=== PATIENT | female | born 1955 | race Caucasian/White ===

== ENCOUNTER → 2017-06-24 | Outpatient (CLI) | payer BC ==
[2017-06-24 14:30] LABS: ADD MAN DIFF? NO
[2017-06-24 14:33] LABS: BASO # 0.1 x10^3/uL (0.0-0.2); BASO % 1 % (0-3); EOS # 0.2 x10^3/uL (0.0-0.7); EOS % 3 % (0-3); HEMATOCRIT 40.5 % (36.0-47.0); LYMPH # 3.2 x10^3/uL (1.0-4.8); LYMPH % 41 % (24-48); MEAN CORPUSCULAR HEMOGLOBIN 29 pg (25-35); MEAN CORPUSCULAR HGB CONC 35 g/dL (31-37); MEAN CORPUSCULAR VOLUME 84 fL (79-100); MONO # 0.6 x10^3/uL (0.0-1.1); MONO % 8 % (0-9); NEUT # 3.6 x10^3uL (1.8-7.7); NEUT % 47 % (31-73); PLATELET COUNT 239 x10^3/uL (140-400); RED BLOOD COUNT 4.83 x10^6/uL (3.50-5.40); RED CELL DISTRIBUTION WIDTH 13.8 % (11.5-14.5); WHITE BLOOD COUNT 7.6 x10^3/uL (4.0-11.0)
[2017-06-24 14:46] LABS: PARTIAL THROMBOPLASTIN TIME 32 SEC (24-38); PROTHROMBIN TIME PATIENT 12.7 SEC (11.7-14.0)
[2017-06-24 14:48] LABS: BILIRUBIN,URINE NEGATIVE (NEG); CLARITY,URINE CLEAR; COLOR,URINE YELLOW; GLUCOSE,URINE NEGATIVE (NEG); NITRITE,URINE NEGATIVE (NEG); PH,URINE 6.5; PROTEIN,URINE 30 mg/dL (NEG-TRACE)
[2017-06-24 14:49] LABS: ALBUMIN 3.6 g/dL (3.4-5.0); ANION GAP 12 (6-14); BLOOD UREA NITROGEN 9 mg/dL (7-20); CALCIUM 8.7 mg/dL (8.5-10.1); CARBON DIOXIDE 28 mmol/L (21-32); CHLORIDE 103 mmol/L (98-107); CREATININE 0.8 mg/dL (0.6-1.0); GFR 72.9; GLUCOSE 114 mg/dL (70-99); POTASSIUM 3.2 mmol/L (3.5-5.1); SODIUM 143 mmol/L (136-145)
[2017-06-24 14:54] LABS: BACTERIA,URINE 0 /HPF (0-FEW); RBC,URINE 0 /HPF (0-2); SQUAMOUS EPITHELIAL CELL,UR FEW /LPF; WBC,URINE 0 /HPF (0-4)
[2017-06-24 15:55] LABS: SEDIMENTATION RATE 27 (0-25)
[2017-06-25 03:17] LABS: MRSA BY PCR Negative (Negative)
== END | disposition home or self-care (01) ==
LOC: SURGPAT 13:40
DX: Z01.818 Encounter for other preprocedural examination (principal); M17.12 Unilateral primary osteoarthritis, left knee; I10 Essential (primary) hypertension; E78.00 Pure hypercholesterolemia, unspecified; J45.909 Unspecified asthma, uncomplicated; R91.1 Solitary pulmonary nodule
CPT/HCPCS: 36415; 71046; 80048; 81001; 82040; 82306; 85025; 85610; 85651; 85730; 87641; 93005

== ENCOUNTER 2017-07-08 09:39 | Inpatient (IN) | payer BC ==
[~2017-07-08 09:39] MED LIST: HYDROcodone/APAP 7.5/325MG 1 TAB TABLET PO; LIDOCAINE 1% PF 2 ML VIAL. ID; LIDOCAINE 2% PF Vial for OR 5 ML VIAL.; MELOXICAM 7.5 MG TABLET PO; PROCHLORPERAZINE 10 MG/2 ML VIAL. IV; PROPOFOL 20 ML IV; fentaNYL PF VIAL 100 MCG/2 ML VIAL; fentaNYL PF VIAL 100 MCG/2 ML VIAL IV
[2017-07-08] MEDS: IV RINGERS,LACTATED 1000ML 1,000 ML IV ×2 (10:20→14:28)
[2017-07-08] MEDS ORDERED: ONDANSETRON PF 4 MG/2 ML VIAL. (11:54)
[2017-07-08] MEDS ORDERED: DEXAMETHASONE SOD PHOS 20 MG/5 ML VIAL. (11:54)
[2017-07-08] MEDS ORDERED: SEVOFLURANE 61 TO 120 MINUTES. IH (11:54)
[2017-07-08] MEDS: TRANEXAMIC ACID 1,000 MG in IV NS 50ML -- 1ST BAG INJ (12:14)
[2017-07-08] MEDS: TOBRAMYCIN POWDER 1.2 GM VIAL. (12:19)
[2017-07-08] MEDS: VANCOMYCIN 1 GM VIAL. (12:19)
[2017-07-08] MEDS: MORPHINE SULFATE 5 MG, KETOROLAC 30 MG, ROPIVacaine 0.5% PF 60 ML, EPINEPHrine 0.5 MG i... INT ART (12:19)
[2017-07-08] MEDS ORDERED: fentaNYL PF VIAL 100 MCG/2 ML VIAL (12:23)
[2017-07-08] MEDS ORDERED: LABETALOL 20 MG/4 ML DISP.SYRIN. (12:27)
[2017-07-08] MEDS: TRANEXAMIC ACID 1,000 MG in IV NS 50ML -- 2ND BAG INJ (13:16)
[2017-07-08] MEDS ORDERED: IPRATRPIUM/ALBUTEROL 0.5/2.5MG 3 ML NEBU. (14:20)
[2017-07-08] MEDS: IPRATRPIUM/ALBUTEROL 0.5/2.5MG 3 ML NEBU. NEB (14:29)
[2017-07-08] MEDS: fentaNYL PF VIAL 100 MCG/2 ML VIAL IV ×3 (14:44→19:15)
[2017-07-08] MEDS: MORPHINE SULFATE 4 MG/ML DISP.SYRIN. IV ×4 (15:22→16:11)
[2017-07-08] MEDS ORDERED: HYDROcodone/APAP 10/325 1 TAB TABLET PO (15:45)
[2017-07-08] MEDS ORDERED: diphenhydrAMINE 50 MG/ML VIAL IV (15:45)
[2017-07-08] MEDS ORDERED: 0.9 % SODIUM CHLORIDE 10 ML DISP.SYRIN. IV (15:45)
[2017-07-08] MEDS ORDERED: METOCLOPRAMIDE HCL 10 MG/2 ML VIAL. IV (15:45)
[2017-07-08] MEDS ORDERED: PROCHLORPERAZINE 10 MG/2 ML VIAL. IV (15:45)
[2017-07-08] MEDS ORDERED: fentaNYL PF VIAL 100 MCG/2 ML VIAL IV (15:45)
[2017-07-08] MEDS ORDERED: ACETAMINOPHEN 325 MG TABLET. PO (15:45)
[2017-07-08] MEDS ORDERED: DEXTROSE 50% 25 GM / 50ML DISP.SYRIN. IV (15:45)
[2017-07-08] MEDS ORDERED: PROCHLORPERAZINE 5 MG TABLET. PO (15:45)
[2017-07-08] MEDS ORDERED: HYDROcodone/APAP 7.5/325MG 1 TAB TABLET PO (15:45)
[2017-07-08] MEDS ORDERED: MORPHINE SULFATE 4 MG/ML DISP.SYRIN. IV ×3 (15:45)
[2017-07-08] MEDS ORDERED: CALCIUM CARBONATE 500 MG TAB.CHEW PO (15:45)
[2017-07-08] MEDS ORDERED: MORPHINE SULFATE 10 MG/ML VIAL. IV (15:45)
[2017-07-08] MEDS ORDERED: traMADol 50 MG TABLET PO ×2 (15:45)
[2017-07-08] MEDS ORDERED: oxyCODONE/APAP 5/325 1 TAB TABLET PO (16:00)
[2017-07-08] MEDS ORDERED: WARFARIN 7.5 MG TABLET. PO (16:00)
[2017-07-08] MEDS ORDERED: NON FORMULARY ITEM (Albuterol Sulfate (Albuterol Sulfate Conc Neb Soln) 1 VIAL) NEB (16:15)
[2017-07-08] MEDS ORDERED: NON FORMULARY ITEM (Albuterol Sulfate (Proair Hfa Inhaler) 1 PUFF) INH (16:15)
[2017-07-08] MEDS: hydroCHLOROthiazide 25 MG TABLET PO (17:00)
[2017-07-08] MEDS: amLODIPine BESYLATE 5 MG TABLET PO (17:00)
[2017-07-08] MEDS: FERROUS SULFATE 325 MG TABLET. PO ×2 (17:00→17:09)
[2017-07-08] MEDS ORDERED: ALBUTEROL SULFATE 2.5 MG/3 ML NEBU. NEB (17:00)
[2017-07-08] MEDS: MULTIVITAMIN with MINERAL TABLET. PO (17:09)
[2017-07-08] MEDS: SENNOSIDES/DOCUSATE 8.6/50MG TABLET. PO (17:10)
[2017-07-08] MEDS: oxyCODONE/APAP 5/325 1 TAB TABLET PO ×2 (17:10→22:05)
[2017-07-08] MEDS: PANTOPRAZOLE 40 MG TABLET.DR. PO (17:10)
[2017-07-08] MEDS: CYCLOBENZAPRINE 10 MG TABLET. PO ×2 (17:11→20:53)
[2017-07-08] MEDS: CALCIUM CARB/VIT D3 500/200 TABLET. PO (17:11)
[2017-07-08] MEDS: KETOROLAC 30 MG, BUPIVACAINE MPF 0.25% 20 ML, EPINEPHrine 0.5 MG in TOTAL VOLUME SYRING... INT ART (18:39)
[2017-07-08] MEDS: IV DEXTROSE 5 %-0.45 % NACL 1,000 ML IV (19:39)
[2017-07-08] MEDS ORDERED: ceFAZolin SODIUM 1 GM in IV DEXTROSE 5% 50 ML IV (20:00)
[2017-07-08] MEDS: ATORVASTATIN CALCIUM 10 MG TABLET. PO (20:53)
[2017-07-08] MEDS: ASPIRIN ENTERIC COATED 325 MG TABLET.DR. PO (20:53)
[2017-07-08] MEDS: LOSARTAN POTASSIUM 50 MG TABLET. PO (20:53)
[2017-07-08] MEDS: MIRTAZAPINE 15 MG TABLET PO (20:54)
[2017-07-08] MEDS: OXYBUTYNIN CHLORIDE 5 MG TABLET PO (20:54)
[2017-07-08] MEDS: ATENOLOL 50 MG TABLET. PO (20:54)
[2017-07-08] MEDS: MONTELUKAST SODIUM 10 MG TABLET. PO (20:54)
[2017-07-08] MEDS: ceFAZolin SODIUM IV Push 1 GM VIAL. IVP (20:55)
[2017-07-08] MEDS: diphenhydrAMINE HCL 25 MG CAPSULE PO (20:55)
[2017-07-08] MEDS ORDERED: SUCRALFATE 1 GM TABLET. PO (21:00)
[2017-07-08] MEDS ORDERED: CELECOXIB 200 MG CAPSULE. PO (21:00)
[2017-07-08] MEDS: DEXAMETHASONE 0.1% OPHTH SOLUTION 5ML BOTTLE. OD (21:03)
[2017-07-08] MEDS: ALPRAZolam 1 MG TABLET PO (22:05)
[2017-07-09] MEDS: IV DEXTROSE 5 %-0.45 % NACL 1,000 ML IV ×3 (01:23→21:36)
[2017-07-09] MEDS: oxyCODONE/APAP 5/325 1 TAB TABLET PO ×3 (03:01→12:12)
[2017-07-09] MEDS: ceFAZolin SODIUM IV Push 1 GM VIAL. IVP ×2 (04:02→12:13)
[2017-07-09] MEDS: KETOROLAC 30 MG, BUPIVACAINE MPF 0.25% 20 ML, EPINEPHrine 0.5 MG in TOTAL VOLUME SYRING... INT ART (05:55)
[2017-07-09] MEDS ORDERED: MAGNESIUM HYDROXIDE 2,400 MG/30 ML ORAL.SUSP. PO (06:00)
[2017-07-09 07:30] LABS: HEMATOCRIT 33.6 % (36.0-47.0); HEMOGLOBIN 11.4 g/dL (12.0-15.5); MEAN CORPUSCULAR HGB CONC 34 g/dL (31-37)
[2017-07-09] MEDS: FERROUS SULFATE 325 MG TABLET. PO ×3 (08:07→17:03)
[2017-07-09] MEDS: PANTOPRAZOLE 40 MG TABLET.DR. PO (08:07)
[2017-07-09] MEDS: CALCIUM CARB/VIT D3 500/200 TABLET. PO (08:08)
[2017-07-09] MEDS: POTASSIUM CHLORIDE 10 MEQ TABLET.ER. PO (08:08)
[2017-07-09] MEDS: SENNOSIDES/DOCUSATE 8.6/50MG TABLET. PO (08:08)
[2017-07-09] MEDS: MULTIVITAMIN with MINERAL TABLET. PO (08:08)
[2017-07-09] MEDS: MELOXICAM 7.5 MG TABLET PO (08:08)
[2017-07-09] MEDS: CYCLOBENZAPRINE 10 MG TABLET. PO ×3 (08:09→20:47)
[2017-07-09] MEDS: ASPIRIN ENTERIC COATED 325 MG TABLET.DR. PO ×2 (08:09→20:47)
[2017-07-09] MEDS: diphenhydrAMINE HCL 25 MG CAPSULE PO ×2 (08:09→20:47)
[2017-07-09] MEDS: CITALOPRAM 20 MG TABLET. PO (08:09)
[2017-07-09] MEDS: DEXAMETHASONE 0.1% OPHTH SOLUTION 5ML BOTTLE. OD ×3 (08:09→20:48)
[2017-07-09] MEDS: ATENOLOL 50 MG TABLET. PO ×2 (08:15→20:47)
[2017-07-09] MEDS: amLODIPine BESYLATE 5 MG TABLET PO (08:15)
[2017-07-09] MEDS: hydroCHLOROthiazide 25 MG TABLET PO (08:15)
[2017-07-09] MEDS: buPROPion 75 MG TABLET. PO (08:19)
[2017-07-09] MEDS: ALPRAZolam 1 MG TABLET PO ×2 (09:10→18:15)
[2017-07-09] MEDS ORDERED: BISACODYL 10 MG SUPP.RECT. PR (16:00)
[2017-07-09] MEDS: oxyCODONE/APAP 7.5/325 1 TAB TABLET PO ×2 (17:03→21:57)
[2017-07-09] MEDS: MONTELUKAST SODIUM 10 MG TABLET. PO (20:47)
[2017-07-09] MEDS: OXYBUTYNIN CHLORIDE 5 MG TABLET PO (20:47)
[2017-07-09] MEDS: MIRTAZAPINE 15 MG TABLET PO (20:47)
[2017-07-09] MEDS: ATORVASTATIN CALCIUM 10 MG TABLET. PO (20:47)
[2017-07-09] MEDS: LOSARTAN POTASSIUM 50 MG TABLET. PO (20:48)
[2017-07-09] MEDS: ZOLPIDEM 5 MG TABLET. PO (22:00)
[2017-07-10] MEDS: ALPRAZolam 1 MG TABLET PO ×3 (05:22→21:18)
[2017-07-10] MEDS: oxyCODONE/APAP 7.5/325 1 TAB TABLET PO ×5 (05:23→21:16)
[2017-07-10 06:14] LABS: HEMATOCRIT 34.1 % (36.0-47.0); HEMOGLOBIN 11.5 g/dL (12.0-15.5); MEAN CORPUSCULAR HGB CONC 34 g/dL (31-37)
[2017-07-10] MEDS: PANTOPRAZOLE 40 MG TABLET.DR. PO (07:56)
[2017-07-10] MEDS: FERROUS SULFATE 325 MG TABLET. PO ×2 (08:04→15:31)
[2017-07-10] MEDS: buPROPion 75 MG TABLET. PO (08:26)
[2017-07-10] MEDS: CITALOPRAM 20 MG TABLET. PO (08:26)
[2017-07-10] MEDS: CYCLOBENZAPRINE 10 MG TABLET. PO ×3 (08:26→21:18)
[2017-07-10] MEDS: CALCIUM CARB/VIT D3 500/200 TABLET. PO (08:26)
[2017-07-10] MEDS: ASPIRIN ENTERIC COATED 325 MG TABLET.DR. PO ×2 (08:26→21:18)
[2017-07-10] MEDS: MULTIVITAMIN with MINERAL TABLET. PO (08:27)
[2017-07-10] MEDS: MELOXICAM 7.5 MG TABLET PO (08:27)
[2017-07-10] MEDS: POTASSIUM CHLORIDE 10 MEQ TABLET.ER. PO (08:27)
[2017-07-10] MEDS: hydroCHLOROthiazide 25 MG TABLET PO (08:27)
[2017-07-10] MEDS: amLODIPine BESYLATE 5 MG TABLET PO (08:28)
[2017-07-10] MEDS: ATENOLOL 50 MG TABLET. PO ×2 (08:28→21:28)
[2017-07-10] MEDS: DEXAMETHASONE 0.1% OPHTH SOLUTION 5ML BOTTLE. OD ×3 (08:29→21:16)
[2017-07-10] MEDS: diphenhydrAMINE HCL 25 MG CAPSULE PO ×2 (08:33→21:17)
[2017-07-10] MEDS: SENNOSIDES/DOCUSATE 8.6/50MG TABLET. PO (09:00)
[2017-07-10] MEDS: MONTELUKAST SODIUM 10 MG TABLET. PO (21:16)
[2017-07-10] MEDS: ATORVASTATIN CALCIUM 10 MG TABLET. PO (21:17)
[2017-07-10] MEDS: ZOLPIDEM 5 MG TABLET. PO (21:17)
[2017-07-10] MEDS: OXYBUTYNIN CHLORIDE 5 MG TABLET PO (21:18)
[2017-07-10] MEDS: LOSARTAN POTASSIUM 50 MG TABLET. PO (21:18)
[2017-07-10] MEDS: MIRTAZAPINE 15 MG TABLET PO (21:18)
[2017-07-11] MEDS: oxyCODONE/APAP 7.5/325 1 TAB TABLET PO ×3 (03:17→12:45)
[2017-07-11] MEDS: SENNOSIDES/DOCUSATE 8.6/50MG TABLET. PO (09:00)
[2017-07-11] MEDS: PROMETHAZINE 12.5 MG TABLET. PO (09:18)
[2017-07-11] MEDS: MELOXICAM 7.5 MG TABLET PO (09:18)
[2017-07-11] MEDS: PANTOPRAZOLE 40 MG TABLET.DR. PO (09:18)
[2017-07-11] MEDS: MULTIVITAMIN with MINERAL TABLET. PO (09:19)
[2017-07-11] MEDS: POTASSIUM CHLORIDE 10 MEQ TABLET.ER. PO (09:19)
[2017-07-11] MEDS: FERROUS SULFATE 325 MG TABLET. PO (09:19)
[2017-07-11] MEDS: ALPRAZolam 1 MG TABLET PO ×2 (09:19→14:23)
[2017-07-11] MEDS: hydroCHLOROthiazide 25 MG TABLET PO (09:19)
[2017-07-11] MEDS: CYCLOBENZAPRINE 10 MG TABLET. PO ×2 (09:19→14:23)
[2017-07-11] MEDS: CALCIUM CARB/VIT D3 500/200 TABLET. PO (09:19)
[2017-07-11] MEDS: ASPIRIN ENTERIC COATED 325 MG TABLET.DR. PO (09:20)
[2017-07-11] MEDS: buPROPion 75 MG TABLET. PO (09:20)
[2017-07-11] MEDS: CITALOPRAM 20 MG TABLET. PO (09:20)
[2017-07-11] MEDS: DEXAMETHASONE 0.1% OPHTH SOLUTION 5ML BOTTLE. OD ×2 (09:23→14:23)
[2017-07-11] MEDS: diphenhydrAMINE HCL 25 MG CAPSULE PO (09:31)
[2017-07-11] MEDS: amLODIPine BESYLATE 5 MG TABLET PO (09:31)
[2017-07-11] MEDS: ATENOLOL 50 MG TABLET. PO (09:33)
[2017-07-11 10:12] LABS: HEMATOCRIT 34.5 % (36.0-47.0); HEMOGLOBIN 11.6 g/dL (12.0-15.5); MEAN CORPUSCULAR HGB CONC 34 g/dL (31-37)
== END 2017-07-11 14:50 | disposition home health service (06) | DRG 470 ==
LOC: OPSVCIP 09:39 → 4 SOUTHEST 16:05
PROC: 0SRD0JZ Replacement of Left Knee Joint with Synthetic Substitute, Open Approach (ICD-10-PCS; principal; 2017-07-08 11:00)
DX: M17.12 Unilateral primary osteoarthritis, left knee (principal); E78.5 Hyperlipidemia, unspecified; I10 Essential (primary) hypertension; J45.909 Unspecified asthma, uncomplicated; K21.9 Gastro-esophageal reflux disease without esophagitis; F32.9 Major depressive disorder, single episode, unspecified; F41.9 Anxiety disorder, unspecified; K58.9 Irritable bowel syndrome, unspecified; M21.379 Foot drop, unspecified foot; Z82.49 Family history of ischemic heart disease and other diseases of the circulatory system; Z82.5 Family history of asthma and other chronic lower respiratory diseases; Z83.3 Family history of diabetes mellitus; Z88.2 Allergy status to sulfonamides; Z88.7 Allergy status to serum and vaccine; Z88.8 Allergy status to other drugs, medicaments and biological substances; Z91.048 Other nonmedicinal substance allergy status; Z94.9 Transplanted organ and tissue status, unspecified
CPT/HCPCS: 36415; 73560; 85014; 85018; 86850; 86900; 86901; 88305; 88311; 94640; 94760; 97116-GP; 97150-GP; 97162-GP; 97165-GO; 97530-GO; 97530-GP; 97535-GO; A7015; C1713; J0171; J0690; J1100; J1885; J2270; J2405; J2704; J2795; J3010; J3260; J3370; J3490; J7030; J7120; J7620; Q0163; Q0169

== ENCOUNTER 2018-04-15 19:17 | Inpatient (IN) | payer BC ==
[~2018-04-15] VITALS: Ht 165.1 cm; Wt 113.4 kg
[~2018-04-15 19:17] MED LIST changes: +ALBU2.5V14 NEB; +ALBU2.5V8 INH; +ALPR1TAB6 PO; +AMLO5TAB10 PO; +ASPI325T11 PO; +ATEN50TA PO; +BUPR75TA6 PO; +CALC-44 PO; +CALC300T4 PO; +CETI10TA22 PO; +CITA40TA5 PO; +CYCL10TA2 PO; +DIPH25TA64 PO; +FERR325T14 PO; +FLUT10SP NS; +HYDR-2145 PO; -HYDROcodone/APAP 7.5/325MG 1 TAB TABLET PO; -LIDOCAINE 1% PF 2 ML VIAL. ID; -LIDOCAINE 2% PF Vial for OR 5 ML VIAL.; +LORA-434 PO; +LOSA-73 PO; +LOVA20TA2 PO; +MELO15TA23 PO; -MELOXICAM 7.5 MG TABLET PO; +MIRT30TA3 PO; +MONT10TA9 PO; +MULT1TAB52 PO; +OXYB5TAB7 PO; +OXYC1TAB15 PO; +PANT40TA5 PO; +POTA10TA12 PO; -PROCHLORPERAZINE 10 MG/2 ML VIAL. IV; +PROM25TA10 PO; -PROPOFOL 20 ML IV; +RANI-348 PO; +SUCR1TAB35 PO; +[UNRECOGNIZED DRUG - CODE] PO; -fentaNYL PF VIAL 100 MCG/2 ML VIAL; -fentaNYL PF VIAL 100 MCG/2 ML VIAL IV
[2018-04-15] MEDS ORDERED: ONDANSETRON PF 4 MG/2 ML VIAL. IM ONE (20:45)
--- NOTE | 2018-04-15 20:52 | PHYS DOC ---
Past Medical History Past Medical History: Anxiety, Arthritis, Depression, GERD, High Cholesterol, Hypertension Additional Past Medical Histor: BACK/LEG PAIN, seasonal allergies Past Surgical History: , Tubal ligation Additional Past Surgical Histo: RIGHT KNEE REPLACEMENT Alcohol Use: Occasionally Drug Use: None Adult General Chief Complaint Chief Complaint: NAUSEA/VOMITING/DIARRHA HPI HPI Patient is a 62 year old female who presents with nausea, vomiting, abdominal pain, and fever that started this morning. She has not been able to keep food, drink, or her medications down today. Her abdominal pain is epigastric and to RUQ and she describes it as crampy, nonradiating. She has just been dry heaving for past several hours. Patient reports her temp at home got up to 101. She also reports having flu like symptoms a couple weeks ago but denies recent sick contacts. She has history of cholecystectomy but denies other abdominal surgeries or medical conditions. Currently denies shortness of breath, chest pain, flank pain, diarrhea, dysuria, hematuria, melena, or hematochezia. Review of Systems Review of Systems Constitutional: Reports fevers [] Eyes: Denies change in visual acuity, redness, or eye pain [] HENT: Denies nasal congestion or sore throat [] Respiratory: Denies cough or shortness of breath [] GI: Reports abdominal pain, nausea, and vomiting [] : Denies dysuria or hematuria [] Integument: Denies rash or skin lesions [] Neurologic: Denies headache, focal weakness or sensory changes [] Complete systems were reviewed and found to be within normal limits, except as documented in this note. Current Medications Current Medications Current Medications Medications (Trade) Dose Ordered Sig/Alma Start Time Stop Time Status Last Admin Dose Admin Famotidine (Pepcid Vial) 20 mg 1X ONCE 04/15/18 21:15 04/15/18 21:16 DC 04/15/18 21:23 20 MG Fentanyl Citrate (Fentanyl 2ml Vial) 50 mcg 1X ONCE 04/15/18 23:00 04/15/18 23:01 DC 04/15/18 23:38 50 MCG Hyoscyamine (Anaspaz) 0.125 mg 1X ONCE 04/15/18 21:15 04/15/18 21:16 DC 04/15/18 21:23 0.125 MG Lorazepam (Ativan) 0.5 mg 1X ONCE 04/15/18 21:15 04/15/18 21:16 DC 04/15/18 21:21 0.5 MG Magnesium Sulfate 50 ml @ 25 mls/hr 1X ONCE 04/15/18 22:15 04/16/18 00:14 DC 04/15/18 23:37 25 MLS/HR Ondansetron HCl (Zofran) 4 mg 1X ONCE 04/15/18 21:00 04/15/18 21:01 DC 04/15/18 21:24 4 MG Piperacillin Sod/ Tazobactam Sod 3.375 gm/Sodium Chloride 50 ml @ 100 mls/hr 1X ONCE 04/15/18 23:00 04/15/18 23:29 DC 04/16/18 01:23 100 MLS/HR Sodium Chloride 1,000 ml @ 1,000 mls/hr 1X ONCE 04/15/18 23:00 04/15/18 23:59 DC 04/16/18 01:15 1,000 MLS/HR Allergies Allergies Allergies Coded Allergies Type Severity Reaction Last Updated Verified lisinopril Allergy Intermediate Itching 07/08/17 Yes nickel Allergy Intermediate Rash 07/08/17 Yes sulfacetamide Allergy Intermediate ITCHING, BURNING 07/08/17 Yes Physical Exam Physical Exam Constitutional: Well developed, obese, appears uncomfortable. [] HENT: Normocephalic, atraumatic, no oral exudates[] Eyes: EOMI, conjunctiva normal, no discharge. [] Neck: Normal range of motion, no tenderness, no swelling, no meningeal signs Cardiovascular: Heart rate regular rhythm, no murmur [] Lungs & Thorax: Bilateral breath sounds clear to auscultation [] Abdomen: Right upper abdominal tenderness tender to palpation, no distention, no guarding [] Skin: Warm, dry, no erythema, no rash. [] Back: Right CVA tenderness, no midline tenderness Extremities: No tenderness, ROM intact, no edema. [] Neurologic: Alert and oriented X 3, normal motor function, normal sensory function, no focal deficits noted. [] Current Patient Data Vital Signs Vital Signs Date Time Temp Pulse Resp B/P (MAP) Pulse Ox O2 Delivery O2 Flow Rate FiO2 04/15/18 23:38 28 96 Room Air 04/15/18 23:19 92 117/56 (76) 04/15/18 20:35 98.8 98.8 Lab Values Laboratory Tests Test 04/15/18 20:30 White Blood Count 2.0 x10^3/uL (4.0-11.0) L Red Blood Count 4.86 x10^6/uL (3.50-5.40) Hemoglobin 13.0 g/dL (12.0-15.5) Hematocrit 39.1 % (36.0-47.0) Mean Corpuscular Volume 81 fL (79-100) Mean Corpuscular Hemoglobin 27 pg (25-35) Mean Corpuscular Hemoglobin Concent 33 g/dL (31-37) Red Cell Distribution Width 15.1 % (11.5-14.5) H Platelet Count 140 x10^3/uL (140-400) Neutrophils (%) (Auto) 84 % (31-73) H Lymphocytes (%) (Auto) 13 % (24-48) L Monocytes (%) (Auto) 1 % (0-9) Eosinophils (%) (Auto) 1 % (0-3) Basophils (%) (Auto) 0 % (0-3) Neutrophils # (Auto) 1.7 x10^3uL (1.8-7.7) L Lymphocytes # (Auto) 0.3 x10^3/uL (1.0-4.8) L Monocytes # (Auto) 0.0 x10^3/uL (0.0-1.1) Eosinophils # (Auto) 0.0 x10^3/uL (0.0-0.7) Basophils # (Auto) 0.0 x10^3/uL (0.0-0.2) Segmented Neutrophils % 55 % (35-66) Band Neutrophils % 29 % (0-9) H Lymphocytes % 13 % (24-48) L Eosinophils % 2 % (0-5) Metamyelocytes % 1 % (0-0) H Toxic Vacuolation Mod Platelet Estimate Adequate (ADEQUATE) Prothrombin Time 13.9 SEC (11.7-14.0) Prothrombin Time INR 1.1 (0.8-1.1) PTT 27 SEC (24-38) Sodium Level 143 mmol/L (136-145) Potassium Level 3.1 mmol/L (3.5-5.1) L Chloride Level 102 mmol/L (98-107) Carbon Dioxide Level 27 mmol/L (21-32) Anion Gap 14 (6-14) Blood Urea Nitrogen 11 mg/dL (7-20) Creatinine 1.2 mg/dL (0.6-1.0) H Estimated GFR (Cockcroft-Gault) 45.5 BUN/Creatinine Ratio 9 (6-20) Glucose Level 93 mg/dL (70-99) Lactic Acid Level 6.2 mmol/L (0.4-2.0) *H Calcium Level 9.4 mg/dL (8.5-10.1) Magnesium Level 1.2 mg/dL (1.8-2.4) L Total Bilirubin 3.6 mg/dL (0.2-1.0) H Aspartate Amino Transferase (AST) 211 U/L (15-37) H Alanine Aminotransferase (ALT) 155 U/L (14-59) H Alkaline Phosphatase 74 U/L (46-116) Creatine Kinase 118 U/L (26-192) Creatine Kinase MB (Mass) < 0.5 ng/mL (0.0-3.6) Creatine Kinase MB Relative Index % (0-4) Troponin I Quantitative < 0.017 ng/mL (0.000-0.055) Total Protein 7.3 g/dL (6.4-8.2) Albumin 3.6 g/dL (3.4-5.0) Albumin/Globulin Ratio 1.0 (1.0-1.7) Lipase 72 U/L (73-393) L Laboratory Tests 04/15/18 20:30 Laboratory Tests 04/15/18 20:30 EKG EKG @2116 NSR at 93bpm, NO ST elevation, T wave inversion to V2-V4 Radiology/Procedures Radiology/Procedures PROCEDURE: CT ABDOMEN PELVIS WO CONTRAST PQRS Compliance statement: One or more of the following individualized dose reduction techniques were utilized for this examination: 1. Automated exposure control. 2. Adjustment of the mA and/or kV according to patient size. 3. Use of iterative reconstruction technique. Indication:severe RT flank pain, prior sent TECHNIQUE: CT abdomen and pelvis without IV contrast with multiplanar reformats. COMPARISON: 05/07/2015 FINDINGS: Limited evaluation of solid abdominal and pelvic organs due to lack of IV contrast. Heart is normal in size. No pericardial or pleural effusion. Mild subpleural atelectasis in the right lower lobe. Diffuse hepatic steatosis. Spleen is mildly enlarged measuring 15 cm. Liver is top normal in size. Status post cholecystectomy. Noncontrast appearance of the pancreas and adrenals within normal limits. No nephrolithiasis or hydronephrosis. No enlarged retroperitoneal or pelvic adenopathy. No free pelvic fluid or ascites. No bowel obstruction. Normal appendix. Anteverted uterus. Urinary bladder within normal limits. No pneumoperitoneum. No suspicious bony lesion. IMPRESSION: Limited evaluation of solid abdominal and pelvic organs due to lack of IV contrast. 1. Mild splenomegaly, nonspecific. 2. Hepatic steatosis. 3. No nephrolithiasis or hydronephrosis. Electronically signed by: Andry Moss DO (04/15/2018 9:50 PM) [facility] DICTATED and SIGNED BY: ANDRY MOSS DO DATE: 04/15/182145 Course & Med Decision Making Course & Med Decision Making Pertinent Labs and Imaging studies reviewed. (See chart for details) Patient presents with abdominal pain, nausea, vomiting. Initially she was found to meet SIRS criteria low WBC, bandemia, and elevated pulse. CT abdomen/pelvis did not reveal acute findings. There were multiple electrolyte abnormalities noted. Symptomatic treatment provided along with magnesium and potassium replaced. There is concern for septic shock as her lactic acid level is elevated at 6.2. Blood cultures collected. Empiric antibiotics given. IVF sepsis bolusing provided. Patient requiring admission for further evaluation and treatment. Discussed with Dr. Rajan (hospitalist) who is in agreement with admission. Discussed findings and plan with patient and family, who acknowledge understanding and agreement. Dragon Disclaimer Dragon Disclaimer This electronic medical record was generated, in whole or in part, using a voice recognition dictation system. Departure Departure Impression: Primary Impression: Septic shock Additional Impressions: Abdominal pain Hyperbilirubinemia Bandemia Lactic acidosis Hypomagnesemia Hypokalemia Disposition: ADMITTED INPATIENT (ICU) Admitting Physician: Other (Mohini) Condition: GUARDED Referrals: WALTER STINSON MD (PCP) Date and Time of Reassessment Date: Apr 16, 2018 Time: 01:55 Fluid Challenge Is the fluid challenge complet: Yes Blood Culture TIme: 22:06 Time Antibiotics Given: 01:55 Vital Signs Vital Signs: Vital Signs Date Time Temp Pulse Resp B/P (MAP) Pulse Ox O2 Delivery O2 Flow Rate FiO2 2/20/19 23:38 28 96 Room Air 04/15/18 23:19 92 117/56 (76) 04/15/18 20:35 98.8 98.8 Temperature Source: Axillary Respirations Respiratory Effort: Normal Respiratory Pattern: Tachypnea Cardiovascular Pulse Rhythm: Regular Heart: Nml rate, reg. rhythm Lung Sounds Breath Sounds: Clear Capillary Refil Capillary Refill: Rt Hand < 3 seconds Peripheral Pulse Pulse Location: Radial Pulse Strength: Normal (2+) Pulse Assessment Method: Palpation Integumentary Skin: Warm, Dry, No Rashes Skin Moisture: Dry Skin Turgor: Normal Skin Color: warm, dry, no erythema Fingernail Color: WNL Critical Care Time Critical care time was 30 minutes which includes time at bedside, spent in discussion of patient's care with specialists and/or family members, with interpretation of laboratory and/or radiological studies and is exclusive of procedures. Problem Qualifiers Additional Impressions: Abdominal pain Abdominal location: right upper quadrant Qualified Codes: R10.11 - Right upper quadrant pain EDILMA CULLEN DO Apr 15, 2018 20:52
[2018-04-15] MEDS ORDERED: ONDANSETRON PF 4 MG/2 ML VIAL. IV ONE (21:00)
[2018-04-15] MEDS ORDERED: IV NORMAL SALINE 1000ML BAG 1,000 ML IV ONE ×2 (21:15→23:00)
[2018-04-15] MEDS ORDERED: FAMOTIDINE 20 MG/2 ML VIAL IVP ONE (21:15)
[2018-04-15] MEDS ORDERED: HYOSCYAMINE 0.125 MG TAB.RAPDIS PO ONE (21:15)
[2018-04-15 21:20] LABS: BASO % 0 % (0-3); EOS % 1 % (0-3); HEMATOCRIT 39.1 % (36.0-47.0); LYMPH # 0.3 x10^3/uL (1.0-4.8); LYMPH % 13 % (24-48); MEAN CORPUSCULAR HEMOGLOBIN 27 pg (25-35); MEAN CORPUSCULAR HGB CONC 33 g/dL (31-37); MEAN CORPUSCULAR VOLUME 81 fL (79-100); MONO % 1 % (0-9); NEUT # 1.7 x10^3uL (1.8-7.7); NEUT % 84 % (31-73); PLATELET COUNT 140 x10^3/uL (140-400); RED BLOOD COUNT 4.86 x10^6/uL (3.50-5.40); RED CELL DISTRIBUTION WIDTH 15.1 % (11.5-14.5)
[2018-04-15 21:28] LABS: CALCIUM 9.4 mg/dL (8.5-10.1); CREATININE 1.2 mg/dL (0.6-1.0); GFR 45.5; POTASSIUM 3.1 mmol/L (3.5-5.1)
[2018-04-15 21:29] LABS: PROTHROMBIN TIME PATIENT 13.9 SEC (11.7-14.0)
[2018-04-15 21:42] LABS: ALBUMIN 3.6 g/dL (3.4-5.0); MAGNESIUM 1.2 mg/dL (1.8-2.4); TOTAL BILIRUBIN 3.6 mg/dL (0.2-1.0); TOTAL PROTEIN 7.3 g/dL (6.4-8.2)
[2018-04-15 21:47] LABS: CREATINE KINASE 118 U/L (26-192)
[2018-04-15 21:50] LABS: % BANDS 29 % (0-9); % EOS 2 % (0-5); % LYMPHS 13 % (24-48); % METAS 1 % (0-0); % SEGS 55 % (35-66)
[2018-04-15 21:51] LABS: PLT ESTIMATE ADEQUATE (ADEQUATE); TOXIC VACUOLATION MOD
--- NOTE | 2018-04-15 21:53 | RAD ---
PQRS Compliance statement: One or more of the following individualized dose reduction techniques were utilized for this examination: 1. Automated exposure control. 2. Adjustment of the mA and/or kV according to patient size. 3. Use of iterative reconstruction technique. Indication:severe RT flank pain, prior sent TECHNIQUE: CT abdomen and pelvis without IV contrast with multiplanar reformats. COMPARISON: 05/07/2015 FINDINGS: Limited evaluation of solid abdominal and pelvic organs due to lack of IV contrast. Heart is normal in size. No pericardial or pleural effusion. Mild subpleural atelectasis in the right lower lobe. Diffuse hepatic steatosis. Spleen is mildly enlarged measuring 15 cm. Liver is top normal in size. Status post cholecystectomy. Noncontrast appearance of the pancreas and adrenals within normal limits. No nephrolithiasis or hydronephrosis. No enlarged retroperitoneal or pelvic adenopathy. No free pelvic fluid or ascites. No bowel obstruction. Normal appendix. Anteverted uterus. Urinary bladder within normal limits. No pneumoperitoneum. No suspicious bony lesion. IMPRESSION: Limited evaluation of solid abdominal and pelvic organs due to lack of IV contrast. 1. Mild splenomegaly, nonspecific. 2. Hepatic steatosis. 3. No nephrolithiasis or hydronephrosis. Electronically signed by: Andry Moss DO (04/15/2018 9:50 PM) [facility]
[2018-04-15] MEDS ORDERED: fentaNYL PF VIAL 100 MCG/2 ML VIAL IV ONE ×2 (22:00→23:00)
[2018-04-15] MEDS ORDERED: MAGNESIUM SULFATE 2GM 50 ML IV ONE (22:15)
[2018-04-15] MEDS ORDERED: PIPERACILLIN/TAZOBACTAM 3.375 GM in IV NORMAL SALINE 50ML 50 ML IV ONE (23:00)
[2018-04-16] VITALS (40 sets, daily range): BP systolic 69–129; BP diastolic 33–65
[2018-04-16] MEDS ORDERED: IV NORMAL SALINE 1000ML BAG 1,000 ML IV ONE
[2018-04-16] MEDS ORDERED: ONDANSETRON PF 4 MG/2 ML VIAL. IV PRN
[2018-04-16] MEDS ORDERED: fentaNYL PF VIAL 100 MCG/2 ML VIAL IV PRN
[2018-04-16] MEDS ORDERED: MORPHINE SULFATE 4 MG/ML VIAL. IV ONE ×2 (00:45→01:45)
[2018-04-16] MEDS ORDERED: ONDANSETRON PF 4 MG/2 ML VIAL. IV ONE (00:45)
[2018-04-16] MEDS ORDERED: IV NORMAL SALINE 500ML BAG 500 ML IV ONE (01:00)
[2018-04-16] MEDS: POTASSIUM CHLORIDE 10MEQ 100 ML IV SCH ×4 (01:43→04:51)
[2018-04-16] MEDS: IV RINGERS,LACTATED 1000ML 1,000 ML IV SCH ×5 (03:13→19:00)
--- NOTE | 2018-04-16 04:37 | NUR ---
Patient admitted to room 110 from ER at 0200. Patient moved self from [facility] to ICU bed. Monitor on. SR noted. VSS. 3.5LNC with 02 sat at 94%. Abd distended, tender upon palpation. Bowel sounds hypoactive. C/o cramping abdominal pain at 9/10 on scale, fentanyl IV given per PRN order. Lactic acid 6.[address] Rajan notified at 0248 and new orders received. Will implement and continue to monitor.
[2018-04-16] MEDS: MORPHINE SULFATE 4 MG/ML VIAL. IV PRN ×3 (05:28→15:37)
[2018-04-16] MEDS: PIPERACILLIN/TAZOBACTAM 3.375 GM in IV NORMAL SALINE 50ML 50 ML IV SCH ×3 (05:28→18:10)
[2018-04-16 06:33] LABS: HEMATOCRIT 35.4 % (36.0-47.0); HEMOGLOBIN 11.4 g/dL (12.0-15.5); RED BLOOD COUNT 4.22 x10^6/uL (3.50-5.40); RED CELL DISTRIBUTION WIDTH 15.8 % (11.5-14.5); WHITE BLOOD COUNT 10.1 x10^3/uL (4.0-11.0)
--- NOTE | 2018-04-16 06:39 | NUR ---
500cc NS bolus not given because patient already received 3L NS in the ER.
[2018-04-16 06:53] LABS: ALBUMIN 2.7 g/dL (3.4-5.0); CREATININE 1.4 mg/dL (0.6-1.0); GFR 38.1; POTASSIUM 3.9 mmol/L (3.5-5.1); TOTAL BILIRUBIN 3.5 mg/dL (0.2-1.0); TOTAL PROTEIN 5.5 g/dL (6.4-8.2)
--- NOTE | 2018-04-16 07:50 | EKG ---
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
--- NOTE | 2018-04-16 09:08 | PDOC2 ---
LEX CALIX EATING DISORDER PSYCHOLOGIST 04/16/18 0908: CONSULT Date of Consult Date of Consult DATE: 04/16/18 TIME: 09:05 Reason for Consult Reason for Consult: abdominal pain Referring Physician Referring Physician: ASUNCION Identification/Chief Complaint Chief Complaint abdominal pain Source Source: Chart review, Patient History of Present Illness Reason for Visit: couple weeks ago, URI, treated with amoxicillin--got better yesterday acute abdominal pain diffusely, vomiting, loose stool(unsure how many) , fever 102 Noted elevated lactic, CLARITA, fevers No hx of liver disease, + cholecystectomy, denies ulcer hx--does take meds for chronic pain, does take NSAIDS Past Medical History Cardiovascular: HTN, Hyperlipidemia Pulmonary: Asthma GI: GERD, Irritable bowel disease Heme/Onc: No pertinent hx Hepatobiliary: No pertinent hx Psych: Anxiety, Addictions, Depression Musculoskeletal: low back pain, Osteoarthritis Rheumatologic: No pertinent hx Infectious disease: No pertinent hx Renal/: Other Endocrine: No pertinent hx Past Surgical History Past Surgical History: , Total knee replacement, Other Family History Family History: Cancer, Chronic Bronchitis, Coronary Artery Disease, Diabetes Social History ALCOHOL: rare Drugs: Cocaine, Marijuana Current Problem List Problem List Problems Medical Problems: (1) Abdominal pain Status: Acute (2) Bandemia Status: Acute (3) Hyperbilirubinemia Status: Acute (4) Hypokalemia Status: Acute (5) Hypomagnesemia Status: Acute (6) Lactic acidosis Status: Acute (7) Septic shock Status: Acute Current Medications Current Medications Current Medications Ondansetron HCl (Zofran) 4 mg 1X ONCE IM ; Start 04/15/18 at 20:45; Stop at 20:51; Status DC Ondansetron HCl (Zofran) 4 mg 1X ONCE IV Last administered on 04/15/18at 21:24 ; Start 04/15/18 at 21:00; Stop 04/15/18 at 21:01; Status DC Famotidine (Pepcid Vial) 20 mg 1X ONCE IVP Last administered on 04/15/18at 21: 23; Start 04/15/18 at 21:15; Stop 04/15/18 at 21:16; Status DC Hyoscyamine (Anaspaz) 0.125 mg 1X ONCE PO Last administered on 04/15/18at 21:23 ; Start 04/15/18 at 21:15; Stop 04/15/18 at 21:16; Status DC Lorazepam (Ativan) 0.5 mg 1X ONCE IV Last administered on 04/15/18at 21:21; Start 04/15/18 at 21:15; Stop 04/15/18 at 21:16; Status DC Sodium Chloride 1,000 ml @ 1,000 mls/hr 1X ONCE IV Last administered on at 21:22; Start 04/15/18 at 21:15; Stop 04/15/18 at 22:14; Status DC Fentanyl Citrate (Fentanyl 2ml Vial) 50 mcg 1X ONCE IV Last administered on at 22:13; Start 04/15/18 at 22:00; Stop 04/15/18 at 22:01; Status DC Magnesium Sulfate 50 ml @ 25 mls/hr 1X ONCE IV Last administered on 04/15/18at 23:37; Start 04/15/18 at 22:15; Stop 04/16/18 at 00:14; Status DC Piperacillin Sod/ Tazobactam Sod 3.375 gm/Sodium Chloride 50 ml @ 100 mls/hr 1X ONCE IV Last administered on 04/16/18at 01:23; Start 04/15/18 at 23:00; Stop 04/15/18 at 23:29; Status DC Sodium Chloride 1,000 ml @ 1,000 mls/hr 1X ONCE IV Last administered on at 01:15; Start 04/15/18 at 23:00; Stop 04/15/18 at 23:59; Status DC Sodium Chloride 1,000 ml @ 1,000 mls/hr 1X ONCE IV Last administered on at 01:19; Start 04/16/18 at 00:00; Stop 04/16/18 at 00:59; Status DC Sodium Chloride 500 ml @ 500 mls/hr 1X ONCE IV ; Start 04/16/18 at 01:00; Stop 04/16/18 at 01:59; Status DC Fentanyl Citrate (Fentanyl 2ml Vial) 50 mcg 1X ONCE IV Last administered on at 23:38; Start 04/15/18 at 23:00; Stop 04/15/18 at 23:01; Status DC Ondansetron HCl (Zofran) 4 mg PRN Q8HRS PRN IV NAUSEA/VOMITING; Start 04/16/18 at 00:00; Stop 04/16/18 at 23:59 Fentanyl Citrate (Fentanyl 2ml Vial) 50 mcg PRN Q2HR PRN IV PAIN Last administered on 04/16/18at 02:39; Start 04/16/18 at 00:00; Stop 04/16/18 at 02:57 ; Status DC Potassium Chloride/Water 100 ml @ 100 mls/hr Q1H IV Last administered on at 04:51; Start 04/16/18 at 00:00; Stop 04/16/18 at 03:59; Status DC Morphine Sulfate (Morphine Sulfate) 4 mg 1X ONCE IV Last administered on at 01:15; Start 04/16/18 at 00:45; Stop 04/16/18 at 00:46; Status DC Ondansetron HCl (Zofran) 4 mg 1X ONCE IV Last administered on 04/16/18at 01:27 ; Start 04/16/18 at 00:45; Stop 04/16/18 at 00:46; Status DC Morphine Sulfate (Morphine Sulfate) 4 mg 1X ONCE IV Last administered on at 01:41; Start 04/16/18 at 01:45; Stop 04/16/18 at 01:46; Status DC Morphine Sulfate (Morphine Sulfate) 4 mg PRN Q3HRS PRN IV PAIN Last administered on 04/16/18at 05:28; Start 04/16/18 at 03:00 Ringer's Solution 1,000 ml @ 125 mls/hr Q8H IV Last administered on 04/16/18at 03:13; Start 04/16/18 at 03:00 Piperacillin Sod/ Tazobactam Sod 3.375 gm/Sodium Chloride 50 ml @ 100 mls/hr Q6HRS IV Last administered on 04/16/18at 05:28; Start 04/16/18 at 06:00 Active Scripts Active Promethazine Hcl 25 Mg Tablet 1 Tab PO PRN Q6HRS PRN Reported Aspirin Ec (Aspirin) 325 Mg Tablet. 1 Tab PO BID Losartan Potassium 50 Mg Tablet 50 Mg PO HS Albuterol Sulfate Conc Neb Soln (Albuterol Sulfate) 2.5 Mg/0.5 Ml Vial.neb 1 Vial NEB PRN Q6HRS PRN Multivitamins (Multivitamin) 1 Each Tablet 1 Tab PO DAILY Meloxicam 15 Mg Tablet 1 Tab PO DAILY Dexamethasone Intensol (Dexamethasone) 1 Mg/1 Ml Drops 1 Mg PO Ferrous Sulfate 325 Mg Tablet 1 Tab PO BID Carafate (Sucralfate) 1 Gm Tablet 1 Tab PO PRN QID Potassium Chloride 10 Meq Tab.sr.24h 10 Meq PO DAILY Calcium With Vit D Tablet (Calcium Citrate/Vitamin D2) 1 Each Tablet 1 Each PO DAILY Amlodipine Besylate 5 Mg Tablet 5 Mg PO DAILY Percocet 5-325 Mg Tablet (Oxycodone/Acetaminophen) 1 Each Tablet 1 Tab PO TID PRN Alprazolam 1 Mg Tablet 1 Tab PO TID PRN Proair Hfa Inhaler (Albuterol Sulfate) 8.5 Gm Hfa.aer.ad 1 Puff INH PRN Q6HRS PRN Benadryl Allergy (Diphenhydramine Hcl) 25 Mg Tablet 50 Mg PO BID Lovastatin 20 Mg Tablet 20 Mg PO HS Bupropion Hcl 75 Mg Tablet 150 Mg PO DAILY Citalopram Hbr (Citalopram Hydrobromide) 40 Mg Tablet 1 Tab PO DAILY Oxybutynin Chloride 5 Mg Tablet 2 Tab PO HS Montelukast Sodium Tablet (Montelukast Sodium) 10 Mg Tablet 10 Mg PO HS Cyclobenzaprine Hcl 10 Mg Tablet 1 Tab PO TID Hydrochlorothiazide Tablet (Hydrochlorothiazide) 25 Mg Tablet 1 Tab PO DAILY Pantoprazole Sodium 40 Mg Tablet.dr 1 Tab PO DAILY Mirtazapine 30 Mg Tablet 1 Tab PO QHS Atenolol 50 Mg Tablet 1 Tab PO BID Allergies Allergies: Coded Allergies: lisinopril (Verified Allergy, Intermediate, Itching, 07/08/17) coughing nickel (Verified Allergy, Intermediate, Rash, 07/08/17) sulfacetamide (Verified Allergy, Intermediate, ITCHING, BURNING, 07/08/17) tetracycline (Verified Allergy, Intermediate, rash, itching, 04/16/18) ROS General: YES: Fatigue, Appetite (loss) PSYCHOLOGICAL ROS: No: Anxiety, Depression Eyes: No Blurry vision, No Double vision HEENT: No: Heacaches, Sore Throat Hematological and Lymphatic: No: Bleeding Problems, Blood Clots Respiratory: YES: Shortness of breath; No: Cough Cardiovascular: No Chest Pain, No Palpitations Gastrointestinal: Yes Other (see hpi) Genitourinary: YES Dysuria; No Hematuria Musculoskeletal: Yes Muscular Weakness; No Joint Pain Neurological: No Confusion, No Numbness/Tingling Skin: No Pruritus, No Rash Physical Exam General: Alert, Cooperative, No acute distress HEENT: PERRLA, Mucous membr. moist/pink Lungs: Other (diminished, on o2, appears SOA while talking) Heart: Regular rate, Normal S1, Normal S2 Abdomen: Soft, Other (distended, diffusely tender) Extremities: No clubbing, No cyanosis Skin: No breakdown, No significant lesion Neuro: Normal speech, Sensation intact Psych/Mental Status: Mental status NL MUSCULOSKELETAL: No deformity, No swelling Vitals VITALS Vital Signs Date Time Temp Pulse Resp B/P (MAP) Pulse Ox O2 Delivery O2 Flow Rate FiO2 04/16/18 08:06 82 18 92/54 (67) 91 Nasal Cannula 3.5 04/16/18 07:00 99.5 99.5 Labs Labs Laboratory Tests Test 04/15/18 20:30 04/16/18 01:20 04/16/18 06:15 White Blood Count 2.0 x10^3/uL (4.0-11.0) 10.1 x10^3/uL (4.0-11.0) Red Blood Count 4.86 x10^6/uL (3.50-5.40) 4.22 x10^6/uL (3.50-5.40) Hemoglobin 13.0 g/dL (12.0-15.5) 11.4 g/dL (12.0-15.5) Hematocrit 39.1 % (36.0-47.0) 35.4 % (36.0-47.0) Mean Corpuscular Volume 81 fL (79-100) 84 fL (79-100) Mean Corpuscular Hemoglobin 27 pg (25-35) 27 pg (25-35) Mean Corpuscular Hemoglobin Concent 33 g/dL (31-37) 32 g/dL (31-37) Red Cell Distribution Width 15.1 % (11.5-14.5) 15.8 % (11.5-14.5) Platelet Count 140 x10^3/uL (140-400) 141 x10^3/uL (140-400) Neutrophils (%) (Auto) 84 % (31-73) Lymphocytes (%) (Auto) 13 % (24-48) Monocytes (%) (Auto) 1 % (0-9) Eosinophils (%) (Auto) 1 % (0-3) Basophils (%) (Auto) 0 % (0-3) Neutrophils # (Auto) 1.7 x10^3uL (1.8-7.7) Lymphocytes # (Auto) 0.3 x10^3/uL (1.0-4.8) Monocytes # (Auto) 0.0 x10^3/uL (0.0-1.1) Eosinophils # (Auto) 0.0 x10^3/uL (0.0-0.7) Basophils # (Auto) 0.0 x10^3/uL (0.0-0.2) Segmented Neutrophils % 55 % (35-66) Band Neutrophils % 29 % (0-9) Lymphocytes % 13 % (24-48) Eosinophils % 2 % (0-5) Metamyelocytes % 1 % (0-0) Toxic Vacuolation Mod Platelet Estimate Adequate (ADEQUATE) Prothrombin Time 13.9 SEC (11.7-14.0) Prothromb Time International Ratio 1.1 (0.8-1.1) Activated Partial Thromboplast Time 27 SEC (24-38) Sodium Level 143 mmol/L (136-145) 146 mmol/L (136-145) Potassium Level 3.1 mmol/L (3.5-5.1) 3.9 mmol/L (3.5-5.1) Chloride Level 102 mmol/L (98-107) 108 mmol/L (98-107) Carbon Dioxide Level 27 mmol/L (21-32) 23 mmol/L (21-32) Anion Gap 14 (6-14) 15 (6-14) Blood Urea Nitrogen 11 mg/dL (7-20) 14 mg/dL (7-20) Creatinine 1.2 mg/dL (0.6-1.0) 1.4 mg/dL (0.6-1.0) Estimated GFR (Cockcroft-Gault) 45.5 38.1 BUN/Creatinine Ratio 9 (6-20) 10 (6-20) Glucose Level 93 mg/dL (70-99) 83 mg/dL (70-99) Lactic Acid Level 6.2 mmol/L (0.4-2.0) 6.5 mmol/L (0.4-2.0) 5.9 mmol/L (0.4-2.0) Calcium Level 9.4 mg/dL (8.5-10.1) 8.0 mg/dL (8.5-10.1) Magnesium Level 1.2 mg/dL (1.8-2.4) 1.6 mg/dL (1.8-2.4) Total Bilirubin 3.6 mg/dL (0.2-1.0) 3.5 mg/dL (0.2-1.0) Aspartate Amino Transf (AST/SGOT) 211 U/L (15-37) 136 U/L (15-37) Alanine Aminotransferase (ALT/SGPT) 155 U/L (14-59) 119 U/L (14-59) Alkaline Phosphatase 74 U/L (46-116) 53 U/L (46-116) Creatine Kinase 118 U/L (26-192) Creatine Kinase MB (Mass) < 0.5 ng/mL (0.0-3.6) Creatine Kinase MB Relative Index % (0-4) Troponin I Quantitative < 0.017 ng/mL (0.000-0.055) 0.027 ng/mL (0.000-0.055) 0.027 ng/mL (0.000-0.055) Total Protein 7.3 g/dL (6.4-8.2) 5.5 g/dL (6.4-8.2) Albumin 3.6 g/dL (3.4-5.0) 2.7 g/dL (3.4-5.0) Albumin/Globulin Ratio 1.0 (1.0-1.7) 1.0 (1.0-1.7) Lipase 72 U/L (73-393) Laboratory Tests Test 04/15/18 20:30 04/16/18 01:20 04/16/18 06:15 White Blood Count 2.0 x10^3/uL (4.0-11.0) 10.1 x10^3/uL (4.0-11.0) Red Blood Count 4.86 x10^6/uL (3.50-5.40) 4.22 x10^6/uL (3.50-5.40) Hemoglobin 13.0 g/dL (12.0-15.5) 11.4 g/dL (12.0-15.5) Hematocrit 39.1 % (36.0-47.0) 35.4 % (36.0-47.0) Mean Corpuscular Volume 81 fL (79-100) 84 fL (79-100) Mean Corpuscular Hemoglobin 27 pg (25-35) 27 pg (25-35) Mean Corpuscular Hemoglobin Concent 33 g/dL (31-37) 32 g/dL (31-37) Red Cell Distribution Width 15.1 % (11.5-14.5) 15.8 % (11.5-14.5) Platelet Count 140 x10^3/uL (140-400) 141 x10^3/uL (140-400) Neutrophils (%) (Auto) 84 % (31-73) Lymphocytes (%) (Auto) 13 % (24-48) Monocytes (%) (Auto) 1 % (0-9) Eosinophils (%) (Auto) 1 % (0-3) Basophils (%) (Auto) 0 % (0-3) Neutrophils # (Auto) 1.7 x10^3uL (1.8-7.7) Lymphocytes # (Auto) 0.3 x10^3/uL (1.0-4.8) Monocytes # (Auto) 0.0 x10^3/uL (0.0-1.1) Eosinophils # (Auto) 0.0 x10^3/uL (0.0-0.7) Basophils # (Auto) 0.0 x10^3/uL (0.0-0.2) Segmented Neutrophils % 55 % (35-66) Band Neutrophils % 29 % (0-9) Lymphocytes % 13 % (24-48) Eosinophils % 2 % (0-5) Metamyelocytes % 1 % (0-0) Toxic Vacuolation Mod Platelet Estimate Adequate (ADEQUATE) Prothrombin Time 13.9 SEC (11.7-14.0) Prothromb Time International Ratio 1.1 (0.8-1.1) Activated Partial Thromboplast Time 27 SEC (24-38) Sodium Level 143 mmol/L (136-145) 146 mmol/L (136-145) Potassium Level 3.1 mmol/L (3.5-5.1) 3.9 mmol/L (3.5-5.1) Chloride Level 102 mmol/L (98-107) 108 mmol/L (98-107) Carbon Dioxide Level 27 mmol/L (21-32) 23 mmol/L (21-32) Anion Gap 14 (6-14) 15 (6-14) Blood Urea Nitrogen 11 mg/dL (7-20) 14 mg/dL (7-20) Creatinine 1.2 mg/dL (0.6-1.0) 1.4 mg/dL (0.6-1.0) Estimated GFR (Cockcroft-Gault) 45.5 38.1 BUN/Creatinine Ratio 9 (6-20) 10 (6-20) Glucose Level 93 mg/dL (70-99) 83 mg/dL (70-99) Lactic Acid Level 6.2 mmol/L (0.4-2.0) 6.5 mmol/L (0.4-2.0) 5.9 mmol/L (0.4-2.0) Calcium Level 9.4 mg/dL (8.5-10.1) 8.0 mg/dL (8.5-10.1) Magnesium Level 1.2 mg/dL (1.8-2.4) 1.6 mg/dL (1.8-2.4) Total Bilirubin 3.6 mg/dL (0.2-1.0) 3.5 mg/dL (0.2-1.0) Aspartate Amino Transf (AST/SGOT) 211 U/L (15-37) 136 U/L (15-37) Alanine Aminotransferase (ALT/SGPT) 155 U/L (14-59) 119 U/L (14-59) Alkaline Phosphatase 74 U/L (46-116) 53 U/L (46-116) Creatine Kinase 118 U/L (26-192) Creatine Kinase MB (Mass) < 0.5 ng/mL (0.0-3.6) Creatine Kinase MB Relative Index % (0-4) Troponin I Quantitative < 0.017 ng/mL (0.000-0.055) 0.027 ng/mL (0.000-0.055) 0.027 ng/mL (0.000-0.055) Total Protein 7.3 g/dL (6.4-8.2) 5.5 g/dL (6.4-8.2) Albumin 3.6 g/dL (3.4-5.0) 2.7 g/dL (3.4-5.0) Albumin/Globulin Ratio 1.0 (1.0-1.7) 1.0 (1.0-1.7) Lipase 72 U/L (73-393) Assessment/Plan Assessment/Plan fevers, hypotension, lactic acidosis, elevated LFTS CLARITA, dehydration cocaine use in past?--noted drug test ordered may be of benefit for stool studies if loose stool normal appy on CT will review with Dr Bowser d/w GI EDMOND BOWSER MD 04/16/18 3972: CONSULT Assessment/Plan Assessment/Plan Pt seen and examined. Agree with Wilson's note Pt appears reasonably stable, orthostatic but not tachycardic appears to be improving with fluid resuscitation abd soft, obese, non significantly TTP cont fluid resuscitation favor GI infection and agree with stool studies low suspicion for appendicitis, given neg CT will follow for possible intervention, but poor candidate. Thanks for consult! LEX CALIX APRN Apr 16, 2018 09:08 EDMOND BOWSER MD Apr 16, 2018 16:25
--- NOTE | 2018-04-16 09:26 | RAD ---
Portable chest, 04/16/2018: HISTORY: Congestion Comparison is made to a study from 06/24/2017. The patient positioning is lordotic. The heart is enlarged. The pulmonary vascularity is within normal limits. An unchanged dense nodule in the right upper lobe is probably a granuloma. The depth of inspiration is suboptimal. No acute infiltrate is seen. IMPRESSION: 1. Cardiomegaly. 2. No acute infiltrates Electronically signed by: Adrian Calderon MD (04/16/2018 9:23 AM) [facility]
--- NOTE | 2018-04-16 09:31 | PDOC2 ---
GI CONSULT Reason For Consult: Abd pain HPI: HPI: 62 y/o female in ICU, history a bit challenging as she is quite uncomfortable this morning. Tells me saw her PCP on 03/27 to have a wart removed and was given amoxicillin for sinus congestion and n/v w/ some abd pain. Symptoms resolved. Diffuse abd pain w/ vomiting and loose stools recurred yesterday, associated w/ fever (says up to 102.2 at home). Pain is constant and radiates to lower back - "bloated." Seems some decreased appetite over the past few weeks w/ weight loss. H/o GERD and IBS. Medication list include pantoprazole, famotidine, Carafate, and promethazine. Denies bleeding. Reports previous EGD and colonoscopy w/ [facility] in 2014. H/o choledocholithiasis s/p ERCP w/ sphincterotomy in 2014 followed by cholecystectomy. Fatty liver on imaging. Denies pancreas or PUD history. Chronic pain on Percocet w/ occasional NSAID use. Labs show normal WBC, Hgb 11.4 (seemed to average in this range in 06/2017), Cr 1.4, bili 3.5 (from 3.6), AST 136 (from 211), ALT 119 (from 155), Alk Phos 53, lactic acid 5.9 (from 6.5). Had elevated LFTs in 2014 prior to ERCP and cholecystectomy - improved after surgery. On CT: mild non-specific splenomegaly and hepatic steatosis. Noted normal appendix. On IV atbx, surgery following. PMH: PMH: HTN, HLD, asthma, GERD, IBS, OA, anxiety/depression, restless leg , tubal ligation, tonsillectomy, cholecystectomy, right knee replacement, right carpal tunnel release FH: Family History: Cancer (pancreas/liver) Social History: Smoke: Quit ALCOHOL: rare Drugs: Other (cocaine and marijuana in the past) ROS: GEN: +fever HEENT: Denies blurred vision, sore throat CV: Denies chest pain RESP: +SOA GI: Per HPI : Denies hematuria, dysuria ENDO: +weight loss NEURO: Denies confusion, dizziness MSK: +chronic pain SKIN: Denies jaundice, pruritus Vitals: Vitals: Vital Signs Date Time Temp Pulse Resp B/P (MAP) Pulse Ox O2 Delivery O2 Flow Rate FiO2 2/21/19 09:06 36 94 Nasal Cannula 3.5 04/16/18 08:06 82 92/54 (67) 04/16/18 07:00 99.5 99.5 Labs: Labs: Laboratory Tests Test 04/15/18 20:30 04/16/18 01:20 04/16/18 06:15 White Blood Count 2.0 x10^3/uL (4.0-11.0) 10.1 x10^3/uL (4.0-11.0) Red Blood Count 4.86 x10^6/uL (3.50-5.40) 4.22 x10^6/uL (3.50-5.40) Hemoglobin 13.0 g/dL (12.0-15.5) 11.4 g/dL (12.0-15.5) Hematocrit 39.1 % (36.0-47.0) 35.4 % (36.0-47.0) Mean Corpuscular Volume 81 fL (79-100) 84 fL (79-100) Mean Corpuscular Hemoglobin 27 pg (25-35) 27 pg (25-35) Mean Corpuscular Hemoglobin Concent 33 g/dL (31-37) 32 g/dL (31-37) Red Cell Distribution Width 15.1 % (11.5-14.5) 15.8 % (11.5-14.5) Platelet Count 140 x10^3/uL (140-400) 141 x10^3/uL (140-400) Neutrophils (%) (Auto) 84 % (31-73) Lymphocytes (%) (Auto) 13 % (24-48) Monocytes (%) (Auto) 1 % (0-9) Eosinophils (%) (Auto) 1 % (0-3) Basophils (%) (Auto) 0 % (0-3) Neutrophils # (Auto) 1.7 x10^3uL (1.8-7.7) Lymphocytes # (Auto) 0.3 x10^3/uL (1.0-4.8) Monocytes # (Auto) 0.0 x10^3/uL (0.0-1.1) Eosinophils # (Auto) 0.0 x10^3/uL (0.0-0.7) Basophils # (Auto) 0.0 x10^3/uL (0.0-0.2) Segmented Neutrophils % 55 % (35-66) Band Neutrophils % 29 % (0-9) Lymphocytes % 13 % (24-48) Eosinophils % 2 % (0-5) Metamyelocytes % 1 % (0-0) Toxic Vacuolation Mod Platelet Estimate Adequate (ADEQUATE) Prothrombin Time 13.9 SEC (11.7-14.0) Prothromb Time International Ratio 1.1 (0.8-1.1) Activated Partial Thromboplast Time 27 SEC (24-38) Sodium Level 143 mmol/L (136-145) 146 mmol/L (136-145) Potassium Level 3.1 mmol/L (3.5-5.1) 3.9 mmol/L (3.5-5.1) Chloride Level 102 mmol/L (98-107) 108 mmol/L (98-107) Carbon Dioxide Level 27 mmol/L (21-32) 23 mmol/L (21-32) Anion Gap 14 (6-14) 15 (6-14) Blood Urea Nitrogen 11 mg/dL (7-20) 14 mg/dL (7-20) Creatinine 1.2 mg/dL (0.6-1.0) 1.4 mg/dL (0.6-1.0) Estimated GFR (Cockcroft-Gault) 45.5 38.1 BUN/Creatinine Ratio 9 (6-20) 10 (6-20) Glucose Level 93 mg/dL (70-99) 83 mg/dL (70-99) Lactic Acid Level 6.2 mmol/L (0.4-2.0) 6.5 mmol/L (0.4-2.0) 5.9 mmol/L (0.4-2.0) Calcium Level 9.4 mg/dL (8.5-10.1) 8.0 mg/dL (8.5-10.1) Magnesium Level 1.2 mg/dL (1.8-2.4) 1.6 mg/dL (1.8-2.4) Total Bilirubin 3.6 mg/dL (0.2-1.0) 3.5 mg/dL (0.2-1.0) Aspartate Amino Transf (AST/SGOT) 211 U/L (15-37) 136 U/L (15-37) Alanine Aminotransferase (ALT/SGPT) 155 U/L (14-59) 119 U/L (14-59) Alkaline Phosphatase 74 U/L (46-116) 53 U/L (46-116) Creatine Kinase 118 U/L (26-192) Creatine Kinase MB (Mass) < 0.5 ng/mL (0.0-3.6) Creatine Kinase MB Relative Index % (0-4) Troponin I Quantitative < 0.017 ng/mL (0.000-0.055) 0.027 ng/mL (0.000-0.055) 0.027 ng/mL (0.000-0.055) Total Protein 7.3 g/dL (6.4-8.2) 5.5 g/dL (6.4-8.2) Albumin 3.6 g/dL (3.4-5.0) 2.7 g/dL (3.4-5.0) Albumin/Globulin Ratio 1.0 (1.0-1.7) 1.0 (1.0-1.7) Lipase 72 U/L (73-393) Allergies: Coded Allergies: lisinopril (Verified Allergy, Intermediate, Itching, 07/08/17) coughing nickel (Verified Allergy, Intermediate, Rash, 07/08/17) sulfacetamide (Verified Allergy, Intermediate, ITCHING, BURNING, 07/08/17) tetracycline (Verified Allergy, Intermediate, rash, itching, 04/16/18) Medications: Current Medications Medications (Trade) Dose Ordered Sig/Alma Route PRN Reason Start Time Stop Time Status Last Admin Dose Admin Ondansetron HCl (Zofran) 4 mg 1X ONCE IV 04/15/18 21:00 04/15/18 21:01 DC 04/15/18 21:24 Famotidine (Pepcid Vial) 20 mg 1X ONCE IVP 04/15/18 21:15 04/15/18 21:16 DC 04/15/18 21:23 Hyoscyamine (Anaspaz) 0.125 mg 1X ONCE PO 04/15/18 21:15 04/15/18 21:16 DC 04/15/18 21:23 Lorazepam (Ativan) 0.5 mg 1X ONCE IV 04/15/18 21:15 04/15/18 21:16 DC 04/15/18 21:21 Sodium Chloride 1,000 ml @ 1,000 mls/hr 1X ONCE IV 04/15/18 21:15 04/15/18 22:14 DC 04/15/18 21:22 Fentanyl Citrate (Fentanyl 2ml Vial) 50 mcg 1X ONCE IV 04/15/18 22:00 04/15/18 22:01 DC 04/15/18 22:13 Magnesium Sulfate 50 ml @ 25 mls/hr 1X ONCE IV 04/15/18 22:15 04/16/18 00:14 DC 04/15/18 23:37 Piperacillin Sod/ Tazobactam Sod 3.375 gm/Sodium Chloride 50 ml @ 100 mls/hr 1X ONCE IV 04/15/18 23:00 04/15/18 23:29 DC 04/16/18 01:23 Sodium Chloride 1,000 ml @ 1,000 mls/hr 1X ONCE IV 04/15/18 23:00 04/15/18 23:59 DC 04/16/18 01:15 Sodium Chloride 1,000 ml @ 1,000 mls/hr 1X ONCE IV 04/16/18 00:00 04/16/18 00:59 DC 04/16/18 01:19 Fentanyl Citrate (Fentanyl 2ml Vial) 50 mcg 1X ONCE IV 04/15/18 23:00 04/15/18 23:01 DC 04/15/18 23:38 Fentanyl Citrate (Fentanyl 2ml Vial) 50 mcg PRN Q2HR PRN IV PAIN 04/16/18 00:00 04/16/18 02:57 DC 04/16/18 02:39 Potassium Chloride/Water 100 ml @ 100 mls/hr Q1H IV 04/16/18 00:00 04/16/18 03:59 DC 04/16/18 04:51 Morphine Sulfate (Morphine Sulfate) 4 mg 1X ONCE IV 04/16/18 00:45 04/16/18 00:46 DC 04/16/18 01:15 Ondansetron HCl (Zofran) 4 mg 1X ONCE IV 04/16/18 00:45 04/16/18 00:46 DC 04/16/18 01:27 Morphine Sulfate (Morphine Sulfate) 4 mg 1X ONCE IV 04/16/18 01:45 04/16/18 01:46 DC 04/16/18 01:41 Morphine Sulfate (Morphine Sulfate) 4 mg PRN Q3HRS PRN IV PAIN 04/16/18 03:00 04/16/18 09:06 Ringer's Solution 1,000 ml @ 125 mls/hr Q8H IV 04/16/18 03:00 04/16/18 03:13 Piperacillin Sod/ Tazobactam Sod 3.375 gm/Sodium Chloride 50 ml @ 100 mls/hr Q6HRS IV 04/16/18 06:00 04/16/18 05:28 Imaging: Imaging: CT A/P w/o contrast Limited evaluation of solid abdominal and pelvic organs due to lack of IV contrast. Heart is normal in size. No pericardial or pleural effusion. Mild subpleural atelectasis in the right lower lobe. Diffuse hepatic steatosis. Spleen is mildly enlarged measuring 15 cm. Liver is top normal in size. Status post cholecystectomy. Noncontrast appearance of the pancreas and adrenals within normal limits. No nephrolithiasis or hydronephrosis. No enlarged retroperitoneal or pelvic adenopathy. No free pelvic fluid or ascites. No bowel obstruction. Normal appendix. Anteverted uterus. Urinary bladder within normal limits. No pneumoperitoneum. No suspicious bony lesion. IMPRESSION: Limited evaluation of solid abdominal and pelvic organs due to lack of IV contrast. 1. Mild splenomegaly, nonspecific. 2. Hepatic steatosis. 3. No nephrolithiasis or hydronephrosis. CXR (pending) PE: GEN: uncomfortable HEENT: Atraumatic, PERRL LUNGS: NC, tachypneic HEART: RRR ABD: distended/round, diffusely tender to light touch - worse in upper abdomen to right, quiet EXTREMITY: No edema SKIN: No rashes, no jaundice NEURO/PSYCH: A & O 3 A/P: A/P: Abd pain, vomiting, loose stools, fever, ?recent sinusitis Hypotension, lactic acidosis, CLARITA, elevated LFTs, ?UTI GERD - on PPI, H2 soila, and Carafate IBS CRC screen - thinks had a colonoscopy in 2014 S/p cholecystectomy and ERCP w/ sphincterotomy Hepatic steatosis Chronic pain -- Reviewed w/ Dr. Ruvalcaba - continue w/ medical therapy, watch lactic acid. Will ask for records of past scopes from our office. Add PPI. Check stool studies if really having diarrhea. H/o drug use - check tox screen. Check anemia parameters. ?liver US UPDATE: Per office records - EGD and colonoscopy (Dr. Pace) in 2000: hiatal hernia, random antral biopsies negative for H. pylori, sessile adenomatous polyp in the sigmoid colon. Note iron deficiency. JEANETH GOULD Apr 16, 2018 09:30
[2018-04-16] MEDS ORDERED: METH-37 PO (10:08)
[2018-04-16] MEDS ORDERED: FAMO20TA5 PO (10:11)
[2018-04-16] MEDS ORDERED: LOSA1TAB22 PO (10:11)
[2018-04-16] MEDS: PANTOPRAZOLE IV PUSH 40 MG VIAL. IVP SCH (10:28)
[2018-04-16 10:31] LABS: BARBITURATES NEG (NEG); BENZODIAZEPINES POS (NEG); CANNABINOIDS POS (NEG); COCAINE NEG (NEG); METHADONE NEG (NEG); OPIATES POS (NEG); PHENCYCLIDINE NEG (NEG)
[2018-04-16 10:50] LABS: AMPHETAMINE/METHAMPHETAMINE NEG (NEG)
[2018-04-16 11:37] LABS: BILIRUBIN,URINE LARGE (NEG); CLARITY,URINE CLEAR; COLOR,URINE ORANGE; NITRITE,URINE POSITIVE (NEG); PH,URINE 5.5; PROTEIN,URINE 30 mg/dL (NEG-TRACE)
[2018-04-16 11:43] LABS: BACTERIA,URINE MANY /HPF (0-FEW); SQUAMOUS EPITHELIAL CELL,UR MANY /LPF
[2018-04-16 11:45] LABS: RBC,URINE OCC /HPF (0-2)
[2018-04-16] MEDS: NOREPINEPHRIN 8MG/250ML PREMIX 250 ML IV PRN ×2 (12:04→20:00)
[2018-04-16 12:38] LABS: BASE EXCESS ABG -5 mmol/L (-3-3); HCO3 ABG 22 mmol/L (21-28); PCO2 ABG 51 mmHg (35-46); PO2 ABG 58 mmHg (65-108); SAT O2 ABG 87 % (92-99)
[2018-04-16] MEDS ORDERED: VANCOMYCIN 2 GM in IV NORMAL SALINE 500ML BAG 500 ML IV ONE (13:30)
[2018-04-16] MEDS ORDERED: VANCOMYCIN PER PHARMACY MC PRN (13:30)
--- NOTE | 2018-04-16 13:40 | CONS ---
DATE OF CONSULTATION: ATTENDING PHYSICIAN: Dr. Rajan. REASON FOR CONSULTATION: Septic shock. HISTORY OF PRESENT ILLNESS: The patient is 62-year-old morbidly obese patient with a BMI of 41. She smoked for about 20-25 years. She came to the hospital, complaining of nausea, vomiting and right upper quadrant abdominal pain. She also had a fever up to 101. The patient's daughter was also at the bedside and there is no history of cough. There was some shortness of breath as well. The patient underwent imaging study and I have reviewed her CT abdomen and pelvis. There is mild atelectasis at the right lower lobe. The abdomen and pelvis findings show mild splenomegaly, hepatic steatosis and no nephrolithiasis or hydronephrosis. The patient has received 5 liters of IV fluids. Her urine output is very minimal despite fluid resuscitation. Her creatinine on admission was 1.4. Lactic acid was 5.9. The family also states that she has history of snoring and daytime somnolence, but never had formal sleep study. Consultation requested for further evaluation and management. PAST MEDICAL HISTORY: Significant for anxiety, arthritis, depression, GERD, high cholesterolemia, hypertension, back pain, leg pain, and seasonal allergies. PAST SURGICAL HISTORY: , tubal ligation, right knee replacement. ALLERGIES: LISINOPRIL, NICKEL, SULFA and TETRACYCLINE. MEDICATIONS: All reviewed, as listed in the MRAD, including Zosyn. REVIEW OF SYSTEMS: Twelve-point system obtained. Pertinent positives discussed in my history of present illness, otherwise noncontributory. All systems that were negative were reviewed as well. SOCIAL HISTORY: Smoked for about 25 years before quitting. She had quit in the past as well. PHYSICAL EXAMINATION: VITAL SIGNS: Reviewed. Her initial blood pressure was 72, now she is on 13 mcg of Levophed and her blood pressure is in the 90s. She has a temperature maximum of 101.2. HEENT: Sclerae nonicteric. NECK: Supple. LUNGS: With few rhonchi anteriorly. CARDIOVASCULAR: Regular rate. ABDOMEN: Soft, tender in the right upper quadrant area. EXTREMITIES: With no pitting edema. LABORATORY DATA: Reviewed. BUN and creatinine 14 and 1.4. Lactic acid 5.9, albumin 2.7. Sodium 146. White cell count was 2.0, now 10.1; hemoglobin 11.4; and platelets are 141. ABG showed a pH of 7.26, pCO2 of 51 and a pO2 of 58 with a bicarbonate of 22. IMPRESSION: 1. Acute hypoxic and hypercapnic respiratory failure secondary to septic shock , abdomen is the likely source. She also has underlying suspected chronic obstructive pulmonary disease and suspected obesity hypoventilation syndrome contributing to her abnormal ABGs. 2. Septic shock, requiring 13 mcg of Levophed. Source is in the abdomen; however, CT abdomen and pelvis does not reveal any obvious etiology, but it was without IV contrast. 3. Suspected underlying chronic obstructive pulmonary disease. 4. Suspected underlying obstructive sleep apnea and obesity hypoventilation syndrome. 5. Mild encephalopathy related to infectious etiology. 6. Suspected acute tubular necrosis/acute kidney injury. The patient's urine output is very minimal despite 5 liters of fluid resuscitation. RECOMMENDATIONS: 1. Discussed with the patient, RN and the patient's daughter. We will place her on BiPAP instead of Venturi mask. 2. Follow ABGs in 2 hours. 3. For now, she does not need intubation but she is at risk for worsening sepsis, shock, Respiratory Failure and may require intubation. Family agrees for that. 4. We will follow up respiratory status closely. 5. Infectious Disease's recommendation and continue with broad-spectrum antibiotic. 6. Follow Surgery and GI's recommendations. 7. She likely has sleep apnea, would benefit from outpatient sleep study as well. 8. Bronchodilators. 9. Repeat BMP. If creatinine is progressively high, then consider renal consult for possibility of dialysis. 10. Wean pressors if possible. 11. I will follow along with you. Critical care time 39 minutes. CONNOR PURCELL MD DR: KIMBERLY/jose armando JOB#: [id number] / [id number] WINNIE
[2018-04-16 13:56] LABS: CALCIUM 7.8 mg/dL (8.5-10.1); CREATININE 1.9 mg/dL (0.6-1.0); GFR 26.8; POTASSIUM 4.7 mmol/L (3.5-5.1)
[2018-04-16 13:56] LABS: FIO2 ABG 36
[2018-04-16] MEDS: VASOPRESSIN 40 UNIT in IV DEXTROSE 5% 100ML 100 ML IV PRN (13:57)
[2018-04-16] MEDS ORDERED: LORazepam 0.5 MG TABLET PO PRN (14:00)
[2018-04-16] MEDS ORDERED: LORazepam 1 MG TABLET PO PRN (14:00)
[2018-04-16] MEDS ORDERED: DAPTOmycin (GENERIC) IVPB 680 MG in IV NORMAL SALINE 50ML 50 ML IV ONE (15:00)
--- NOTE | 2018-04-16 15:30 | NUR ---
SS following for discharge planning. SS reviewed pt chart. Pt is from home and currently requiring oxygen needs. No discharge needs noted at this time. SS will continue to follow for pending discharge needs.
[2018-04-16] MEDS ORDERED: FUROSEMIDE 20 MG/2 ML VIAL. IVP ONE (15:45)
--- NOTE | 2018-04-16 15:55 | PDOC1 ---
History and Physical Date of Admission Date of Admission 04/16/2018 Identification/Chief Complaint Chief Complaint Loni ascencio Problems: (1) Abdominal pain (2) Bandemia (3) Lactic acidosis (4) Septic shock Source Source: Chart review, Patient History of Present Illness History of Present Illness Patient is a 62-year-old female with past medical history of GERD and irritable bowel syndrome who comes today with a history of more or less 24 hours off abdominal discomfort. The patient describes her discomfort as a sharp pain intermittent in nature 10 out of 10 intensity at the time of my evaluation. The patient localizes her pain to her right lower quadrant. The patient denies fever no chills no nausea or vomiting has been reported the patient didn't have one loose bowel movement prior to her arrival to the emergency department. Of note is that the patient was treated with antibiotics at the beginning of this month for upper respiratory tract infections. The patient denies hematochezia no black tarry stools were reported no hematemesis has been reported either. Patient denies dietary transgressions she denies travels outside the country no exposure to sick animals, the onset of the abdomen discomfort was incidious but progressed quite quickly over the course of last 12 hours, the patient denies headache no blurred vision no dysphagia no chest pain or palpitations no shortness of breath ,cough or sputum production reported the pain over the abdomen does not radiate to the groin does not radiate to the flanks no urinary symptoms were reported the patient denies lower extremity edema and no neurological deficits were evident. She has been admitted to the intensive care unit for further evaluation treatment Past Medical History Cardiovascular: HTN, Hyperlipidemia Pulmonary: Asthma GI: GERD, Irritable bowel disease Heme/Onc: No pertinent hx Hepatobiliary: No pertinent hx Psych: Anxiety, Addictions, Depression Rheumatologic: No pertinent hx Infectious disease: No pertinent hx Renal/: Other Endocrine: No pertinent hx Past Surgical History Past Surgical History: , Total knee replacement, Other Family History Family History: Cancer, Chronic Bronchitis, Coronary Artery Disease, Diabetes Social History Smoke: Quit ALCOHOL: rare Drugs: Other (cocaine and marijuana in the past) Current Problem List Problem List Problems Medical Problems: (1) Abdominal pain Status: Acute (2) Bandemia Status: Acute (3) Hyperbilirubinemia Status: Acute (4) Hypokalemia Status: Acute (5) Hypomagnesemia Status: Acute (6) Lactic acidosis Status: Acute (7) Septic shock Status: Acute Current Medications Current Medications Current Medications Medications (Trade) Dose Ordered Sig/Alma Start Time Stop Time Status Last Admin Dose Admin Daptomycin 680 mg/ Sodium Chloride 50 ml @ 100 mls/hr ONCE ONCE 04/16/18 15:00 04/16/18 15:29 DC Famotidine (Pepcid Vial) 20 mg 1X ONCE 04/15/18 21:15 04/15/18 21:16 DC 04/15/18 21:23 Fentanyl Citrate (Fentanyl 2ml Vial) 50 mcg PRN Q2HR PRN 04/16/18 00:00 04/16/18 02:57 DC 04/16/18 02:39 Furosemide (Lasix) 80 mg 1X ONCE 04/16/18 15:45 04/16/18 15:46 Hyoscyamine (Anaspaz) 0.125 mg 1X ONCE 04/15/18 21:15 04/15/18 21:16 DC 04/15/18 21:23 Lorazepam (Ativan) 0.5 mg PRN Q6HRS PRN 04/16/18 14:15 Magnesium Sulfate 50 ml @ 25 mls/hr 1X ONCE 04/15/18 22:15 04/16/18 00:14 DC 04/15/18 23:37 Morphine Sulfate (Morphine Sulfate) 4 mg PRN Q3HRS PRN 04/16/18 03:00 04/16/18 15:37 Norepinephrine Bitartrate 250 ml @ 1.875 mls/ hr CONT PRN 04/16/18 12:00 04/16/18 12:04 Ondansetron HCl (Zofran) 4 mg 1X ONCE 04/16/18 00:45 04/16/18 00:46 DC 04/16/18 01:27 Pantoprazole Sodium (PROTONIX VIAL for IV PUSH) 40 mg DAILYAC 04/16/18 11:30 04/16/18 10:28 Piperacillin Sod/ Tazobactam Sod 3.375 gm/Sodium Chloride 50 ml @ 100 mls/hr Q6HRS 04/16/18 06:00 04/16/18 12:03 Potassium Chloride/Water 100 ml @ 100 mls/hr Q1H 04/16/18 00:00 04/16/18 03:59 DC 04/16/18 04:51 Ringer's Solution 1,000 ml @ 999 mls/hr Q1H1M 04/16/18 09:30 04/16/18 11:30 DC 04/16/18 10:23 Sodium Chloride 500 ml @ 500 mls/hr PRN Q1HR PRN 04/16/18 15:45 Vancomycin HCl (Vanco Per Pharmacy) 1 each PRN DAILY PRN 04/16/18 13:30 04/16/18 14:48 DC Vancomycin HCl (Vancomycin Random Level) 1 each 1X ONCE 04/17/18 05:00 04/17/18 05:00 DC Vancomycin HCl 2 gm/Sodium Chloride 500 ml @ 250 mls/hr 1X ONCE 04/16/18 13:30 04/16/18 14:47 DC 04/16/18 13:31 Vasopressin 40 unit/Dextrose 102 ml @ 6 mls/hr CONT PRN 04/16/18 13:45 04/16/18 13:57 Allergies Allergies Allergies Coded Allergies Type Severity Reaction Last Updated Verified lisinopril Allergy Intermediate Itching 07/08/17 Yes nickel Allergy Intermediate Rash 07/08/17 Yes sulfacetamide Allergy Intermediate ITCHING, BURNING 07/08/17 Yes tetracycline Allergy Intermediate rash, itching 04/16/18 Yes ROS Review of System CONSTITUTIONAL: No fever or chills EYES: No recent changes SKIN: No rash or itching CARDIOVASCULAR: No chest pain, syncope, palpitations, or edema RESPIRATORY: No SOB or cough GASTROINTESTINAL: No nausea, vomiting, +abdominal pain NEUROLOGICAL: No headaches or weakness ENDOCRINE: No cold or heat intolerance GENITOURINARY: No urgency or frequency of urination MUSCULOSKELETAL: No back pain or joint pain LYMPHATICS: No enlarged lymph nodes PSYCHIATRIC: No anxiety or depression Physical Exam Physical Exam GEN.: No apparent distress. Alert and oriented. HEENT: Head is normocephalic, atraumatic NECK: Supple. LUNGS: Clear to auscultation. HEART: RRR, S1, S2 present. Peripheral pulses intact ABDOMEN: Soft, tender to deep palpation over the right lower quadrant and also left lower quadrant. No rebound no guarding elicited no peritoneal signs evident. Positive bowel sounds. EXTREMITIES: Without any cyanosis. NEUROLOGIC: Normal speech, normal tone PSYCHIATRIC: Normal affect, normal mood. SKIN: No ulcerations Vitals Vitals Vital Signs Date Time Temp Pulse Resp B/P (MAP) Pulse Ox O2 Delivery O2 Flow Rate FiO2 04/16/18 15:37 24 91 Nasal Cannula 04/16/18 13:21 77 78/50 (59) 04/16/18 12:49 4.0 04/16/18 11:00 98.4 98.4 Labs Labs Laboratory Tests Test 04/15/18 20:30 04/16/18 01:20 04/16/18 06:15 04/16/18 09:00 White Blood Count 2.0 x10^3/uL (4.0-11.0) 10.1 x10^3/uL (4.0-11.0) Red Blood Count 4.86 x10^6/uL (3.50-5.40) 4.22 x10^6/uL (3.50-5.40) Hemoglobin 13.0 g/dL (12.0-15.5) 11.4 g/dL (12.0-15.5) Hematocrit 39.1 % (36.0-47.0) 35.4 % (36.0-47.0) Mean Corpuscular Volume 81 fL (79-100) 84 fL (79-100) Mean Corpuscular Hemoglobin 27 pg (25-35) 27 pg (25-35) Mean Corpuscular Hemoglobin Concent 33 g/dL (31-37) 32 g/dL (31-37) Red Cell Distribution Width 15.1 % (11.5-14.5) 15.8 % (11.5-14.5) Platelet Count 140 x10^3/uL (140-400) 141 x10^3/uL (140-400) Neutrophils (%) (Auto) 84 % (31-73) Lymphocytes (%) (Auto) 13 % (24-48) Monocytes (%) (Auto) 1 % (0-9) Eosinophils (%) (Auto) 1 % (0-3) Basophils (%) (Auto) 0 % (0-3) Neutrophils # (Auto) 1.7 x10^3uL (1.8-7.7) Lymphocytes # (Auto) 0.3 x10^3/uL (1.0-4.8) Monocytes # (Auto) 0.0 x10^3/uL (0.0-1.1) Eosinophils # (Auto) 0.0 x10^3/uL (0.0-0.7) Basophils # (Auto) 0.0 x10^3/uL (0.0-0.2) Segmented Neutrophils % 55 % (35-66) Band Neutrophils % 29 % (0-9) Lymphocytes % 13 % (24-48) Eosinophils % 2 % (0-5) Metamyelocytes % 1 % (0-0) Toxic Vacuolation Mod Platelet Estimate Adequate (ADEQUATE) Prothrombin Time 13.9 SEC (11.7-14.0) Prothromb Time International Ratio 1.1 (0.8-1.1) Activated Partial Thromboplast Time 27 SEC (24-38) Sodium Level 143 mmol/L (136-145) 146 mmol/L (136-145) Potassium Level 3.1 mmol/L (3.5-5.1) 3.9 mmol/L (3.5-5.1) Chloride Level 102 mmol/L (98-107) 108 mmol/L (98-107) Carbon Dioxide Level 27 mmol/L (21-32) 23 mmol/L (21-32) Anion Gap 14 (6-14) 15 (6-14) Blood Urea Nitrogen 11 mg/dL (7-20) 14 mg/dL (7-20) Creatinine 1.2 mg/dL (0.6-1.0) 1.4 mg/dL (0.6-1.0) Estimated GFR (Cockcroft-Gault) 45.5 38.1 BUN/Creatinine Ratio 9 (6-20) 10 (6-20) Glucose Level 93 mg/dL (70-99) 83 mg/dL (70-99) Lactic Acid Level 6.2 mmol/L (0.4-2.0) 6.5 mmol/L (0.4-2.0) 5.9 mmol/L (0.4-2.0) Calcium Level 9.4 mg/dL (8.5-10.1) 8.0 mg/dL (8.5-10.1) Magnesium Level 1.2 mg/dL (1.8-2.4) 1.6 mg/dL (1.8-2.4) Total Bilirubin 3.6 mg/dL (0.2-1.0) 3.5 mg/dL (0.2-1.0) Aspartate Amino Transf (AST/SGOT) 211 U/L (15-37) 136 U/L (15-37) Alanine Aminotransferase (ALT/SGPT) 155 U/L (14-59) 119 U/L (14-59) Alkaline Phosphatase 74 U/L (46-116) 53 U/L (46-116) Creatine Kinase 118 U/L (26-192) Creatine Kinase MB (Mass) < 0.5 ng/mL (0.0-3.6) Creatine Kinase MB Relative Index % (0-4) Troponin I Quantitative < 0.017 ng/mL (0.000-0.055) 0.027 ng/mL (0.000-0.055) 0.027 ng/mL (0.000-0.055) Total Protein 7.3 g/dL (6.4-8.2) 5.5 g/dL (6.4-8.2) Albumin 3.6 g/dL (3.4-5.0) 2.7 g/dL (3.4-5.0) Albumin/Globulin Ratio 1.0 (1.0-1.7) 1.0 (1.0-1.7) Lipase 72 U/L (73-393) Reticulocyte Count (auto) 1.9 % (0.5-2.5) Iron Level 9 ug/dL (50-170) Total Iron Binding Capacity 372 ug/dL (250-450) Iron Saturation 2 % (15-34) Vitamin B12 Level 616 pg/mL (247-911) Hepatitis A IgM Antibody Nonreactive (Nonreactive) Hepatitis B Surface Antigen Nonreactive (Nonreactive) Hepatitis B Core IgM Antibody Nonreactive (Nonreactive) Hepatitis C IgG Antibody Nonreactive (Nonreactive) Urine Collection Type Unknown Urine Color [place] Urine Clarity Clear Urine pH 5.5 Urine Specific [place] 1.025 Urine Protein 30 mg/dL (NEG-TRACE) Urine Glucose (UA) Negative mg/dL (NEG) Urine Ketones (Stick) 15 mg/dL (NEG) Urine Blood Negative (NEG) Urine Nitrite Positive (NEG) Urine Bilirubin Large (NEG) Urine Urobilinogen Dipstick 1.0 mg/dL (0.2 mg/dL) Urine Leukocyte Esterase Small (NEG) Urine RBC Occ /HPF (0-2) Urine WBC 11-20 /HPF (0-4) Urine Squamous Epithelial Cells Many /LPF Urine Renal Epithelial Cells Few /LPF Urine Bacteria Many /HPF (0-FEW) Urine Mucus Mod /LPF Urine Opiates Screen Pos (NEG) Urine Methadone Screen Neg (NEG) Urine Barbiturates Neg (NEG) Urine Phencyclidine Screen Neg (NEG) Urine Amphetamine/Methamphetamine Neg (NEG) Urine Benzodiazepines Screen Pos (NEG) Urine Cocaine Screen Neg (NEG) Urine Cannabinoids Screen Pos (NEG) Urine Ethyl Alcohol Neg (NEG) Test 04/16/18 11:43 04/16/18 13:25 O2 Saturation 87 % (92-99) Arterial Blood pH 7.26 (7.35-7.45) Arterial Blood pCO2 at Patient Temp 51 mmHg (35-46) Arterial Blood pO2 at Patient Temp 58 mmHg (65-108) Arterial Blood HCO3 22 mmol/L (21-28) Arterial Blood Base Excess -5 mmol/L (-3-3) FiO2 36 Sodium Level 144 mmol/L (136-145) Potassium Level 4.7 mmol/L (3.5-5.1) Chloride Level 107 mmol/L (98-107) Carbon Dioxide Level 24 mmol/L (21-32) Anion Gap 13 (6-14) Blood Urea Nitrogen 18 mg/dL (7-20) Creatinine 1.9 mg/dL (0.6-1.0) Estimated GFR (Cockcroft-Gault) 26.8 Glucose Level 68 mg/dL (70-99) Lactic Acid Level 5.1 mmol/L (0.4-2.0) Calcium Level 7.8 mg/dL (8.5-10.1) Laboratory Tests Test 04/15/18 20:30 04/16/18 01:20 04/16/18 06:15 04/16/18 09:00 White Blood Count 2.0 x10^3/uL (4.0-11.0) 10.1 x10^3/uL (4.0-11.0) Red Blood Count 4.86 x10^6/uL (3.50-5.40) 4.22 x10^6/uL (3.50-5.40) Hemoglobin 13.0 g/dL (12.0-15.5) 11.4 g/dL (12.0-15.5) Hematocrit 39.1 % (36.0-47.0) 35.4 % (36.0-47.0) Mean Corpuscular Volume 81 fL (79-100) 84 fL (79-100) Mean Corpuscular Hemoglobin 27 pg (25-35) 27 pg (25-35) Mean Corpuscular Hemoglobin Concent 33 g/dL (31-37) 32 g/dL (31-37) Red Cell Distribution Width 15.1 % (11.5-14.5) 15.8 % (11.5-14.5) Platelet Count 140 x10^3/uL (140-400) 141 x10^3/uL (140-400) Neutrophils (%) (Auto) 84 % (31-73) Lymphocytes (%) (Auto) 13 % (24-48) Monocytes (%) (Auto) 1 % (0-9) Eosinophils (%) (Auto) 1 % (0-3) Basophils (%) (Auto) 0 % (0-3) Neutrophils # (Auto) 1.7 x10^3uL (1.8-7.7) Lymphocytes # (Auto) 0.3 x10^3/uL (1.0-4.8) Monocytes # (Auto) 0.0 x10^3/uL (0.0-1.1) Eosinophils # (Auto) 0.0 x10^3/uL (0.0-0.7) Basophils # (Auto) 0.0 x10^3/uL (0.0-0.2) Segmented Neutrophils % 55 % (35-66) Band Neutrophils % 29 % (0-9) Lymphocytes % 13 % (24-48) Eosinophils % 2 % (0-5) Metamyelocytes % 1 % (0-0) Toxic Vacuolation Mod Platelet Estimate Adequate (ADEQUATE) Prothrombin Time 13.9 SEC (11.7-14.0) Prothromb Time International Ratio 1.1 (0.8-1.1) Activated Partial Thromboplast Time 27 SEC (24-38) Sodium Level 143 mmol/L (136-145) 146 mmol/L (136-145) Potassium Level 3.1 mmol/L (3.5-5.1) 3.9 mmol/L (3.5-5.1) Chloride Level 102 mmol/L (98-107) 108 mmol/L (98-107) Carbon Dioxide Level 27 mmol/L (21-32) 23 mmol/L (21-32) Anion Gap 14 (6-14) 15 (6-14) Blood Urea Nitrogen 11 mg/dL (7-20) 14 mg/dL (7-20) Creatinine 1.2 mg/dL (0.6-1.0) 1.4 mg/dL (0.6-1.0) Estimated GFR (Cockcroft-Gault) 45.5 38.1 BUN/Creatinine Ratio 9 (6-20) 10 (6-20) Glucose Level 93 mg/dL (70-99) 83 mg/dL (70-99) Lactic Acid Level 6.2 mmol/L (0.4-2.0) 6.5 mmol/L (0.4-2.0) 5.9 mmol/L (0.4-2.0) Calcium Level 9.4 mg/dL (8.5-10.1) 8.0 mg/dL (8.5-10.1) Magnesium Level 1.2 mg/dL (1.8-2.4) 1.6 mg/dL (1.8-2.4) Total Bilirubin 3.6 mg/dL (0.2-1.0) 3.5 mg/dL (0.2-1.0) Aspartate Amino Transf (AST/SGOT) 211 U/L (15-37) 136 U/L (15-37) Alanine Aminotransferase (ALT/SGPT) 155 U/L (14-59) 119 U/L (14-59) Alkaline Phosphatase 74 U/L (46-116) 53 U/L (46-116) Creatine Kinase 118 U/L (26-192) Creatine Kinase MB (Mass) < 0.5 ng/mL (0.0-3.6) Creatine Kinase MB Relative Index % (0-4) Troponin I Quantitative < 0.017 ng/mL (0.000-0.055) 0.027 ng/mL (0.000-0.055) 0.027 ng/mL (0.000-0.055) Total Protein 7.3 g/dL (6.4-8.2) 5.5 g/dL (6.4-8.2) Albumin 3.6 g/dL (3.4-5.0) 2.7 g/dL (3.4-5.0) Albumin/Globulin Ratio 1.0 (1.0-1.7) 1.0 (1.0-1.7) Lipase 72 U/L (73-393) Reticulocyte Count (auto) 1.9 % (0.5-2.5) Iron Level 9 ug/dL (50-170) Total Iron Binding Capacity 372 ug/dL (250-450) Iron Saturation 2 % (15-34) Vitamin B12 Level 616 pg/mL (247-911) Hepatitis A IgM Antibody Nonreactive (Nonreactive) Hepatitis B Surface Antigen Nonreactive (Nonreactive) Hepatitis B Core IgM Antibody Nonreactive (Nonreactive) Hepatitis C IgG Antibody Nonreactive (Nonreactive) Urine Collection Type Unknown Urine Color [place] Urine Clarity Clear Urine pH 5.5 Urine Specific [place] 1.025 Urine Protein 30 mg/dL (NEG-TRACE) Urine Glucose (UA) Negative mg/dL (NEG) Urine Ketones (Stick) 15 mg/dL (NEG) Urine Blood Negative (NEG) Urine Nitrite Positive (NEG) Urine Bilirubin Large (NEG) Urine Urobilinogen Dipstick 1.0 mg/dL (0.2 mg/dL) Urine Leukocyte Esterase Small (NEG) Urine RBC Occ /HPF (0-2) Urine WBC 11-20 /HPF (0-4) Urine Squamous Epithelial Cells Many /LPF Urine Renal Epithelial Cells Few /LPF Urine Bacteria Many /HPF (0-FEW) Urine Mucus Mod /LPF Urine Opiates Screen Pos (NEG) Urine Methadone Screen Neg (NEG) Urine Barbiturates Neg (NEG) Urine Phencyclidine Screen Neg (NEG) Urine Amphetamine/Methamphetamine Neg (NEG) Urine Benzodiazepines Screen Pos (NEG) Urine Cocaine Screen Neg (NEG) Urine Cannabinoids Screen Pos (NEG) Urine Ethyl Alcohol Neg (NEG) Test 04/16/18 11:43 04/16/18 13:25 O2 Saturation 87 % (92-99) Arterial Blood pH 7.26 (7.35-7.45) Arterial Blood pCO2 at Patient Temp 51 mmHg (35-46) Arterial Blood pO2 at Patient Temp 58 mmHg (65-108) Arterial Blood HCO3 22 mmol/L (21-28) Arterial Blood Base Excess -5 mmol/L (-3-3) FiO2 36 Sodium Level 144 mmol/L (136-145) Potassium Level 4.7 mmol/L (3.5-5.1) Chloride Level 107 mmol/L (98-107) Carbon Dioxide Level 24 mmol/L (21-32) Anion Gap 13 (6-14) Blood Urea Nitrogen 18 mg/dL (7-20) Creatinine 1.9 mg/dL (0.6-1.0) Estimated GFR (Cockcroft-Gault) 26.8 Glucose Level 68 mg/dL (70-99) Lactic Acid Level 5.1 mmol/L (0.4-2.0) Calcium Level 7.8 mg/dL (8.5-10.1) VTE Prophylaxis Ordered VTE Prophylaxis Devices: No VTE Pharmacological Prophylaxi: Yes Assessment/Plan Assessment/Plan Sepsis secondary to abdominal etiology most likely, CT scan has been red with no evidence of abscess or a focal point of concern. Acute renal failure secondary to infectious process and sepsis Hypernatremia secondary to severe dehydration Prerenal osteopenia History of peptic ulcer disease with no active bleeding at the present time Bandemia secondary to underlying sepsis Plan: Start broad-spectrum antibiotics Fluid resuscitation as per sepsis protocol Consult Dr. Avila for critical care management Follow urinary output We'll consult surgery DVT prophylaxis and GI prophylaxis Problem Qualifiers (1) Abdominal pain: Abdominal location: right upper quadrant Qualified Codes: R10.11 - Right upper quadrant pain ERAN SINGLETON MD Apr 16, 2018 15:55
[2018-04-16] MEDS ORDERED: SUCCINYLCHOLINE 200 MG/10 ML VIAL. ONE (16:08)
[2018-04-16] MEDS ORDERED: SUCCINYLCHOLINE 200 MG/10 ML VIAL. IV ONE (16:15)
[2018-04-16] MEDS ORDERED: ETOMIDATE 20 MG/10 ML VIAL. IV ONE (16:18)
[2018-04-16] MEDS ORDERED: fentaNYL PF VIAL 100 MCG/2 ML VIAL ONE ×2 (16:22→16:30)
[2018-04-16] MEDS ORDERED: MIDAZOLAM HCL/PF 5 MG/5 ML VIAL. ONE ×2 (16:24→16:30)
[2018-04-16] MEDS ORDERED: VECURONIUM BOLUS 10 MG VIAL. IV ONE ×2 (16:26→16:30)
--- NOTE | 2018-04-16 16:30 | NUR ---
At 1630, I administered Fentanyl 100mcg,Versed 5mg and vecuronium 10mg IV under direction of Dr Baker Anesthesia for bedside intubation. These were pulled from [employer] as stat Critical care medications. There were no wastes
[2018-04-16 17:20] LABS: BASE EXCESS ABG -12 mmol/L (-3-3); HCO3 ABG 16 mmol/L (21-28); PCO2 ABG 45 mmHg (35-46); PO2 ABG 73 mmHg (65-108); SAT O2 ABG 91 % (92-99)
[2018-04-16] MEDS ORDERED: SODIUM BICARB ADULT 8.4% 50 MEQ/50 ML DISP.SYRIN. IV ONE ×2 (17:30→20:30)
[2018-04-16 17:41] LABS: FIO2 ABG 50
--- NOTE | 2018-04-16 19:35 | NUR ---
At [address] Contreras of patient's renal status. Dr. Contreras aware of patient's hemodynamic status with last ABG results and 2 amps of sodium bicarb IV administered and 80mg lasix IV. No new orders received.
--- NOTE | 2018-04-16 19:40 | NUR ---
Paged Dr Sawyer discussed low grade temp, reviewed lab results/Blood culture results, low urine output, antibiotics, and need for Heparin for DVT prophylaxes. Orders received for Tylenol 650MG Suppository [id number], decrease Zosyn to 2.25GM Q6HRS, Levaquin 750MG IVx1, repeat Blood Cultures x2 for temp >101.5, and call Primary to discuss starting Heparin subcutaneous for DVT prophylaxes. See orders, I/O, lab results.
[2018-04-16] MEDS ORDERED: ACETAMINOPHEN 650 MG SUPP.RECT. PR PRN (19:45)
[2018-04-16] MEDS: IV NORMAL SALINE 500ML BAG 500 ML IV PRN ×3 (20:08→21:35)
--- NOTE | 2018-04-16 20:09 | RAD ---
Chest radiograph 04/16/2018 4:48 PM INDICATION: Intubation COMPARISON: April 16, 2018 TECHNIQUE: Portable upright frontal view of the chest is provided. FINDINGS: Endotracheal tube terminates 2.7 cm above the level of the carmen. Cardiomediastinal silhouette is similar. Mild pulmonary vascular congestion. No pneumothorax. Right IJ central venous catheter is identified with the distal tip projecting over the cavoatrial junction. Nasogastric tube courses below level of the diaphragm with the side port at the level of the gastroesophageal junction. This may be advanced further. IMPRESSION: 1. Endotracheal tube is in satisfactory position. 2. Nasogastric tube may be advanced further as the side port is at the level of the gastroesophageal junction. 3. Right IJ central venous catheter terminates in the expected region of the cavoatrial junction. Electronically signed by: Milagros Santa MD (04/16/2018 8:06 PM) [facility]
--- NOTE | 2018-04-16 20:13 | NUR ---
Per Radiology report on portable CXR, ETT in correct position, Central line in correct position, but OG needs to be advanced. Will advance OG and check KUB for placement. Order placed per Dr Baker--ok to use central line and may draw lab from central line.
[2018-04-16 20:21] LABS: BASE EXCESS ABG -11 mmol/L (-3-3); HCO3 ABG 16 mmol/L (21-28); PCO2 ABG 42 mmHg (35-46); PO2 ABG 69 mmHg (65-108); SAT O2 ABG 90 % (92-99)
--- NOTE | 2018-04-16 20:25 | NUR ---
ABG Results pH 7.205, pCO2 41.6, P02 68.5, HCO3 16.1, BE -11.2, Dr King called notified of ABG, sedation, and discussed heparin for DVT prophylaxis. Orders received to give 2 amps of NAHCO3 IVP now and notify Dr Contreras of ABGs. and OK to start heparin 5000 units subcutaneous q8hrs. See orders.
[2018-04-16 20:33] LABS: FIO2 ABG 60
--- NOTE | 2018-04-16 20:35 | NUR ---
Paged Dr Contreras regarding ABG results, returned page, notified of ABg's order from Dr King, updated on condition (Vital signs, Urine Out Put , sedation). Dr. King ordered D5W +3 amps of Bicarb at 125. DC'd the LR at 125.
[2018-04-16] MEDS: CHLORHEXIDINE 0.12% 15 ML MOUTHWASH. MM SCH (21:13)
[2018-04-16] MEDS: HEPARIN for SUB-Q USE 5,000 UNIT/ML VIAL. SQ SCH (21:38)
[2018-04-16] MEDS: SODIUM BICARBONATE VIAL 150 MEQ in IV DEXTROSE 5% 1,000 ML IV SCH (21:50)
--- NOTE | 2018-04-16 22:05 | NUR ---
Paged Dr Contreras, returned page, notified patient has now received 1500CC NS and SBP still 70's. Discussed continuing to give IV boluses vs starting Dopamine gtt, also notified of UO. Per Dr Contreras to start Dopamine gtt now and continue to monitor UO--do not call if remains low through the night.
[2018-04-16] MEDS: MIDAZOLAM 100mg/100ml NS BAG 100 ML IV PRN (22:24)
--- NOTE | 2018-04-16 22:25 | NUR ---
patient has become increasing restlessness. throw arms up in air. trying to sit up. Dr King called received orders increase fentanyl to 100mcg/hr, Ativan 1-2 mg every 4 hrs as needed, Vecuronium 6 mg every 4 hrs as needed. may witch from versed to Ativan gtt if above medications do not work
[2018-04-16] MEDS: VECURONIUM BOLUS 10 MG VIAL. IV PRN (22:57)
[2018-04-17] VITALS (44 sets, daily range): BP systolic 60–108; BP diastolic 32–76
[2018-04-17] MEDS: MINERAL OIL/PETROLATUM,WHITE OPHTH OINT 3.5GM TUBE. OU PRN ×2 (00:13→13:58)
[2018-04-17] MEDS: PIPERACILLIN/TAZOBACTAM 2.25 GM in IV NORMAL SALINE 50ML 50 ML IV SCH ×4 (00:14→18:13)
--- NOTE | 2018-04-17 01:00 | NUR ---
Patient BP dropping and oxygen saturation dropping since turned to left side; patient returned to her back. Will keep patient on her back and unload extremities until she becomes more stable to tolerate turns.
[2018-04-17 01:24] LABS: BASE EXCESS ABG -11 mmol/L (-3-3); CORRECTED PCO2 ABG 48 mmHg; CORRECTED PH ABG 7.18; CORRECTED PO2 ABG 73 mmHg; HCO3 ABG 17 mmol/L (21-28); PCO2 ABG 45 mmHg (35-46); PO2 ABG 67 mmHg (65-108); SAT O2 ABG 90 % (92-99)
[2018-04-17] MEDS: NOREPINEPHRIN 8MG/250ML PREMIX 250 ML IV PRN ×4 (01:26→18:12)
--- NOTE | 2018-04-17 01:30 | NUR ---
patient requires increase oxygen now on 100% O2 stat 86-90%. ABG ph 7.179, p CO2 48.1, pO2 73.2, pCO2 48.1 HC03 17.2 BE -10.5 (temp corrected for temp 101.0 F) Paged Dr King, return page, informed of patient ABG's, vital signs,review pressor rates and vent settings. orders received to increase PEEP to 8. Notifiy DR Contreras.
--- NOTE | 2018-04-17 01:40 | NUR ---
Paged Dr Contreras, returned page, notified of ABGs, Vent changes, Pressor rates, BP, UO, and overall condition. Order received to have IR place Temporary Dialysis catheter early am. See orders, vital signs, I/O, IVF flow sheet.
[2018-04-17 01:44] LABS: FIO2 ABG 90
[2018-04-17] MEDS: IV NORMAL SALINE 500ML BAG 500 ML IV PRN ×3 (03:24→05:55)
[2018-04-17] MEDS: VECURONIUM BOLUS 10 MG VIAL. IV PRN (04:26)
[2018-04-17] MEDS: VASOPRESSIN 40 UNIT in IV DEXTROSE 5% 100ML 100 ML IV PRN (04:31)
[2018-04-17] MEDS ORDERED: VANCOMYCIN RANDOM LEVEL. MC ONE (05:00)
[2018-04-17 05:12] LABS: BASO % 0 % (0-3); EOS # 0.1 x10^3/uL (0.0-0.7); EOS % 1 % (0-3); HEMATOCRIT 31.1 % (36.0-47.0); HEMOGLOBIN 9.6 g/dL (12.0-15.5); LYMPH # 2.1 x10^3/uL (1.0-4.8); LYMPH % 26 % (24-48); MEAN CORPUSCULAR HEMOGLOBIN 26 pg (25-35); MEAN CORPUSCULAR HGB CONC 31 g/dL (31-37); MEAN CORPUSCULAR VOLUME 85 fL (79-100); MONO % 13 % (0-9); NEUT # 4.7 x10^3uL (1.8-7.7); NEUT % 60 % (31-73); PLATELET COUNT 76 x10^3/uL (140-400); RED BLOOD COUNT 3.64 x10^6/uL (3.50-5.40); RED CELL DISTRIBUTION WIDTH 16.7 % (11.5-14.5); WHITE BLOOD COUNT 7.9 x10^3/uL (4.0-11.0)
[2018-04-17 05:29] LABS: PROTHROMBIN TIME PATIENT 21.5 SEC (11.7-14.0)
[2018-04-17] MEDS: HEPARIN for SUB-Q USE 5,000 UNIT/ML VIAL. SQ SCH ×2 (05:33→14:00)
[2018-04-17 06:11] LABS: ALBUMIN/GLOBULIN RATIO 0.7 (1.0-1.7); CALCIUM 7.2 mg/dL (8.5-10.1); CREATININE 2.9 mg/dL (0.6-1.0); GFR 16.4; POTASSIUM 3.5 mmol/L (3.5-5.1); TOTAL BILIRUBIN 3.8 mg/dL (0.2-1.0); TOTAL PROTEIN 4.9 g/dL (6.4-8.2)
--- NOTE | 2018-04-17 06:30 | NUR ---
Dr Sawyer at bedside, updated on overall condition, lab results, pressor rates, vital signs, and urine output. Daughter at bedside and Dr Sawyer spoke with her regarding prognosis.
[2018-04-17 06:33] LABS: BASE EXCESS ABG -12 mmol/L (-3-3); CORRECTED PCO2 ABG 47 mmHg; CORRECTED PH ABG 7.16; CORRECTED PO2 ABG 76 mmHg; HCO3 ABG 17 mmol/L (21-28); PCO2 ABG 47 mmHg (35-46); PO2 ABG 74 mmHg (65-108); SAT O2 ABG 93 % (92-99)
--- NOTE | 2018-04-17 06:35 | NUR ---
AM ABG drawn early per Dr Sawyer request. Results given to Dr Sawyer and essentially unchanged from earlier ABG which was called to Dr King and Dr Contreras. Awaiting placement of Temporary Dialysis for CRRT. No change in POC at this time. Addendum: 04/17/18 at 0744 by ROBBI GARCIA RN Amended: Links added.
[2018-04-17 06:45] LABS: FIO2 ABG 100
--- NOTE | 2018-04-17 06:55 | PDOC ---
Infectious Disease Note Vital Sign Vital Signs Vital Signs Date Time Temp Pulse Resp B/P (MAP) Pulse Ox O2 Delivery O2 Flow Rate FiO2 04/17/18 05:55 96 Ventilator 04/17/18 05:50 122 31 70/39 (49) 04/17/18 01:15 101.0 101.0 04/16/18 17:00 4.0 Labs Lab Laboratory Tests Test 04/16/18 09:00 04/16/18 11:43 04/16/18 13:17 04/16/18 13:25 Urine Collection Type Unknown Urine Color [place] Urine Clarity Clear Urine pH 5.5 Urine Specific [place] 1.025 Urine Protein 30 mg/dL (NEG-TRACE) Urine Glucose (UA) Negative mg/dL (NEG) Urine Ketones (Stick) 15 mg/dL (NEG) Urine Blood Negative (NEG) Urine Nitrite Positive (NEG) Urine Bilirubin Large (NEG) Urine Urobilinogen Dipstick 1.0 mg/dL (0.2 mg/dL) Urine Leukocyte Esterase Small (NEG) Urine RBC Occ /HPF (0-2) Urine WBC 11-20 /HPF (0-4) Urine Squamous Epithelial Cells Many /LPF Urine Renal Epithelial Cells Few /LPF Urine Bacteria Many /HPF (0-FEW) Urine Mucus Mod /LPF Urine Opiates Screen Pos (NEG) Urine Methadone Screen Neg (NEG) Urine Barbiturates Neg (NEG) Urine Phencyclidine Screen Neg (NEG) Urine Amphetamine/Methamphetamine Neg (NEG) Urine Benzodiazepines Screen Pos (NEG) Urine Cocaine Screen Neg (NEG) Urine Cannabinoids Screen Pos (NEG) Urine Ethyl Alcohol Neg (NEG) O2 Saturation 87 % (92-99) 91 % (92-99) Arterial Blood pH 7.26 (7.35-7.45) 7.17 (7.35-7.45) Arterial Blood pCO2 at Patient Temp 51 mmHg (35-46) 45 mmHg (35-46) Arterial Blood pO2 at Patient Temp 58 mmHg (65-108) 73 mmHg (65-108) Arterial Blood HCO3 22 mmol/L (21-28) 16 mmol/L (21-28) Arterial Blood Base Excess -5 mmol/L (-3-3) -12 mmol/L (-3-3) FiO2 36 50 Sodium Level 144 mmol/L (136-145) Potassium Level 4.7 mmol/L (3.5-5.1) Chloride Level 107 mmol/L (98-107) Carbon Dioxide Level 24 mmol/L (21-32) Anion Gap 13 (6-14) Blood Urea Nitrogen 18 mg/dL (7-20) Creatinine 1.9 mg/dL (0.6-1.0) Estimated GFR (Cockcroft-Gault) 26.8 Glucose Level 68 mg/dL (70-99) Lactic Acid Level 5.1 mmol/L (0.4-2.0) Calcium Level 7.8 mg/dL (8.5-10.1) Test 04/16/18 20:00 04/17/18 01:09 04/17/18 04:00 O2 Saturation 90 % (92-99) 90 % (92-99) Arterial Blood pH 7.21 (7.35-7.45) 7.20 (7.35-7.45) Arterial Blood pCO2 at Patient Temp 42 mmHg (35-46) 45 mmHg (35-46) Arterial Blood pO2 at Patient Temp 69 mmHg (65-108) 67 mmHg (65-108) Arterial Blood HCO3 16 mmol/L (21-28) 17 mmol/L (21-28) Arterial Blood Base Excess -11 mmol/L (-3-3) -11 mmol/L (-3-3) FiO2 60 90 Arterial Blood pH (Temp corrected) 7.18 Arterial Blood pCO2 (Temp correct) 48 mmHg Arterial Blood pO2 (Temp corrected) 73 mmHg White Blood Count 7.9 x10^3/uL (4.0-11.0) Red Blood Count 3.64 x10^6/uL (3.50-5.40) Hemoglobin 9.6 g/dL (12.0-15.5) Hematocrit 31.1 % (36.0-47.0) Mean Corpuscular Volume 85 fL (79-100) Mean Corpuscular Hemoglobin 26 pg (25-35) Mean Corpuscular Hemoglobin Concent 31 g/dL (31-37) Red Cell Distribution Width 16.7 % (11.5-14.5) Platelet Count 76 x10^3/uL (140-400) Neutrophils (%) (Auto) 60 % (31-73) Lymphocytes (%) (Auto) 26 % (24-48) Monocytes (%) (Auto) 13 % (0-9) Eosinophils (%) (Auto) 1 % (0-3) Basophils (%) (Auto) 0 % (0-3) Neutrophils # (Auto) 4.7 x10^3uL (1.8-7.7) Lymphocytes # (Auto) 2.1 x10^3/uL (1.0-4.8) Monocytes # (Auto) 1.0 x10^3/uL (0.0-1.1) Eosinophils # (Auto) 0.1 x10^3/uL (0.0-0.7) Basophils # (Auto) 0.0 x10^3/uL (0.0-0.2) Prothrombin Time 21.5 SEC (11.7-14.0) Prothromb Time International Ratio 1.9 (0.8-1.1) Sodium Level 147 mmol/L (136-145) Potassium Level 3.5 mmol/L (3.5-5.1) Chloride Level 105 mmol/L (98-107) Carbon Dioxide Level 21 mmol/L (21-32) Anion Gap 21 (6-14) Blood Urea Nitrogen 24 mg/dL (7-20) Creatinine 2.9 mg/dL (0.6-1.0) Estimated GFR (Cockcroft-Gault) 16.4 BUN/Creatinine Ratio 8 (6-20) Glucose Level 58 mg/dL (70-99) Calcium Level 7.2 mg/dL (8.5-10.1) Magnesium Level 1.5 mg/dL (1.8-2.4) Total Bilirubin 3.8 mg/dL (0.2-1.0) Aspartate Amino Transf (AST/SGOT) 240 U/L (15-37) Alanine Aminotransferase (ALT/SGPT) 147 U/L (14-59) Alkaline Phosphatase 95 U/L (46-116) Total Protein 4.9 g/dL (6.4-8.2) Albumin 2.0 g/dL (3.4-5.0) Albumin/Globulin Ratio 0.7 (1.0-1.7) Micro Microbiology 04/16/18 Blood Culture - Preliminary, Resulted NO GROWTH AFTER 1 DAY Objective Assessment Septic shock GNR/GPC 2/4 bottles - ? GI source CLARITA with UOP Acute Resp failure Tetracycline/sulfa allergy - ? reaction Transaminitis Thrombocytopenia Plan Plan of Care Cont Zosyn - adjusted dose 04/16 sec to decreased urine output and worsening renal function S/p Daptomycin and Levoflox times one 04/16 and Vanc times one Awaiting CRRT d/w nursing and call being placed to have access placed - If CRRT started will need abx adjusted F/u labs and cults Repeat Blood cults acquired May need additional imaging is stable Abd U?S report is pending D/w daughter critical illness and possibility that her mother may not survive 35 mins CC time Thank you # [id number] SAMIRA GUTIERREZ MD Apr 17, 2018 06:55
--- NOTE | 2018-04-17 07:10 | NUR ---
Spoke with daughter regarding plan to start CRRT--educated on procedure and need for Temporary Dialysis catheter placement; all questions answered. Consent signed by daughter, Maritza, for placement of Temporary Dialysis catheter.
[2018-04-17] MEDS: MIDAZOLAM 100mg/100ml NS BAG 100 ML IV PRN ×2 (07:11→13:58)
[2018-04-17] MEDS ORDERED: HEPARIN for IV BOLUS 10,000 UNIT/10 ML VIAL. ONE (07:19)
[2018-04-17] MEDS ORDERED: LIDOCAINE WITH 8.4% SOD BICARB 3 ML DISP.SYRIN. ONE (07:19)
[2018-04-17] MEDS ORDERED: LIDOCAINE WITH 8.4% SOD BICARB 3 ML DISP.SYRIN. INJ ONE (08:00)
--- NOTE | 2018-04-17 08:00 | RAD ---
Right upper quadrant abdominal ultrasound, 04/16/2018: HISTORY: Elevated liver function tests, sepsis The gallbladder is surgically absent. The liver is enlarged measuring 22 cm in craniocaudad extent. The hepatic echogenicity is increased compatible with fatty change. No hepatic mass or intrahepatic bile duct dilatation is seen. The common hepatic duct is enlarged measuring 1.5 cm. The upper common bile duct measures 1.3 cm. The distal common bile duct at the level pancreatic head is not clearly visualized. Much of the pancreas was obscured by overlying bowel. The right kidney is unremarkable. IMPRESSION: 1. Status post cholecystectomy. 2. Mild enlargement of the common hepatic duct. 3. Hepatomegaly with hepatic steatosis. Electronically signed by: Adrian Calderon MD (04/17/2018 7:57 AM) [facility]
[2018-04-17] MEDS ORDERED: DEXTROSE 50% 25 GM / 50ML DISP.SYRIN. IV ONE ×2 (08:13→08:15)
--- NOTE | 2018-04-17 08:13 | RAD ---
Portable chest, 04/17/2018: HISTORY: Check tube placements Comparison is made to yesterday's study. The tip of the ET tube lies several centimeters above the carmen. An NG tube extends into the stomach. A right jugular central venous catheter extends to the level the atrial caval junction. The heart is enlarged. Moderate bilateral pulmonary infiltrates have developed with loss of vascular margination. The hemidiaphragms are obscured. There may be pleural fluid contributing to the basilar opacities. IMPRESSION: 1. Satisfactory tube positions. 2. Moderate bilateral pulmonary infiltrates have developed most compatible with pulmonary edema. Note: The patient's nurse in the ICU was notified of these findings at 8:10 AM on 04/17/2018. Electronically signed by: Adrian Calderon MD (04/17/2018 8:10 AM) [facility]
--- NOTE | 2018-04-17 08:25 | PDOC ---
PROGRESS NOTES Chief Complaint Chief Complaint Septic shock secondary to most likely abdominal pathology. Unclear given the negative results off her CT scan and ultrasound. Acute hypoxemic respiratory failure on mechanical ventilation Transaminitis secondary to sepsis most likely but also could be underlying steatohepatitis given patient's BMI Acute renal failure secondary to sepsis hypomagnesemia hypokalemia Plan: continue ICU support patient is on 3 pressors despite appropriate fluid resuscitation. I broad spectrum antibiotics, appreciate ID technology sales consultant input patient to be started on CRRT Discussed prognosis with family members at bedside, very guarded at the present time given the acuity off the patient's condition. ALL CONCERNS WERE ADDRESSED TO THE BEST OF MY ABILITIES GI and DVT prophylaxis History of Present Illness History of Present Illness Patient in critical condition, currently on paralytics due to agitation and for better vent management. Family members at bedside. All questions addressed to the best of my abilities. Vitals Vitals Vital Signs Date Time Temp Pulse Resp B/P (MAP) Pulse Ox O2 Delivery O2 Flow Rate FiO2 04/17/18 06:30 120 28 84/69 (74) 96 Ventilator 04/17/18 01:15 101.0 101.0 04/16/18 17:00 4.0 Physical Exam General: Alert, Cooperative, No acute distress Heart: Regular rate, Normal S1, Normal S2 Abdomen: Soft, Other (distended, diffusely tender) Extremities: No clubbing, No cyanosis Skin: No breakdown, No significant lesion Labs LABS Laboratory Tests Test 04/16/18 09:00 04/16/18 11:43 04/16/18 13:17 04/16/18 13:25 Urine Collection Type Unknown Urine Color [place] Urine Clarity Clear Urine pH 5.5 Urine Specific Otis 1.025 Urine Protein 30 mg/dL (NEG-TRACE) Urine Glucose (UA) Negative mg/dL (NEG) Urine Ketones (Stick) 15 mg/dL (NEG) Urine Blood Negative (NEG) Urine Nitrite Positive (NEG) Urine Bilirubin Large (NEG) Urine Urobilinogen Dipstick 1.0 mg/dL (0.2 mg/dL) Urine Leukocyte Esterase Small (NEG) Urine RBC Occ /HPF (0-2) Urine WBC 11-20 /HPF (0-4) Urine Squamous Epithelial Cells Many /LPF Urine Renal Epithelial Cells Few /LPF Urine Bacteria Many /HPF (0-FEW) Urine Mucus Mod /LPF Urine Opiates Screen Pos (NEG) Urine Methadone Screen Neg (NEG) Urine Barbiturates Neg (NEG) Urine Phencyclidine Screen Neg (NEG) Urine Amphetamine/Methamphetamine Neg (NEG) Urine Benzodiazepines Screen Pos (NEG) Urine Cocaine Screen Neg (NEG) Urine Cannabinoids Screen Pos (NEG) Urine Ethyl Alcohol Neg (NEG) O2 Saturation 87 % (92-99) 91 % (92-99) Arterial Blood pH 7.26 (7.35-7.45) 7.17 (7.35-7.45) Arterial Blood pCO2 at Patient Temp 51 mmHg (35-46) 45 mmHg (35-46) Arterial Blood pO2 at Patient Temp 58 mmHg (65-108) 73 mmHg (65-108) Arterial Blood HCO3 22 mmol/L (21-28) 16 mmol/L (21-28) Arterial Blood Base Excess -5 mmol/L (-3-3) -12 mmol/L (-3-3) FiO2 36 50 Sodium Level 144 mmol/L (136-145) Potassium Level 4.7 mmol/L (3.5-5.1) Chloride Level 107 mmol/L (98-107) Carbon Dioxide Level 24 mmol/L (21-32) Anion Gap 13 (6-14) Blood Urea Nitrogen 18 mg/dL (7-20) Creatinine 1.9 mg/dL (0.6-1.0) Estimated GFR (Cockcroft-Gault) 26.8 Glucose Level 68 mg/dL (70-99) Lactic Acid Level 5.1 mmol/L (0.4-2.0) Calcium Level 7.8 mg/dL (8.5-10.1) Test 04/16/18 20:00 04/17/18 01:09 04/17/18 04:00 04/17/18 08:00 O2 Saturation 90 % (92-99) 90 % (92-99) 93 % (92-99) Arterial Blood pH 7.21 (7.35-7.45) 7.20 (7.35-7.45) 7.17 (7.35-7.45) Arterial Blood pCO2 at Patient Temp 42 mmHg (35-46) 45 mmHg (35-46) 47 mmHg (35-46) Arterial Blood pO2 at Patient Temp 69 mmHg (65-108) 67 mmHg (65-108) 74 mmHg (65-108) Arterial Blood HCO3 16 mmol/L (21-28) 17 mmol/L (21-28) 17 mmol/L (21-28) Arterial Blood Base Excess -11 mmol/L (-3-3) -11 mmol/L (-3-3) -12 mmol/L (-3-3) FiO2 60 90 100 Arterial Blood pH (Temp corrected) 7.18 7.16 Arterial Blood pCO2 (Temp correct) 48 mmHg 47 mmHg Arterial Blood pO2 (Temp corrected) 73 mmHg 76 mmHg White Blood Count 7.9 x10^3/uL (4.0-11.0) Red Blood Count 3.64 x10^6/uL (3.50-5.40) Hemoglobin 9.6 g/dL (12.0-15.5) Hematocrit 31.1 % (36.0-47.0) Mean Corpuscular Volume 85 fL (79-100) Mean Corpuscular Hemoglobin 26 pg (25-35) Mean Corpuscular Hemoglobin Concent 31 g/dL (31-37) Red Cell Distribution Width 16.7 % (11.5-14.5) Platelet Count 76 x10^3/uL (140-400) Neutrophils (%) (Auto) 60 % (31-73) Lymphocytes (%) (Auto) 26 % (24-48) Monocytes (%) (Auto) 13 % (0-9) Eosinophils (%) (Auto) 1 % (0-3) Basophils (%) (Auto) 0 % (0-3) Neutrophils # (Auto) 4.7 x10^3uL (1.8-7.7) Lymphocytes # (Auto) 2.1 x10^3/uL (1.0-4.8) Monocytes # (Auto) 1.0 x10^3/uL (0.0-1.1) Eosinophils # (Auto) 0.1 x10^3/uL (0.0-0.7) Basophils # (Auto) 0.0 x10^3/uL (0.0-0.2) Prothrombin Time 21.5 SEC (11.7-14.0) Prothromb Time International Ratio 1.9 (0.8-1.1) Sodium Level 147 mmol/L (136-145) Potassium Level 3.5 mmol/L (3.5-5.1) Chloride Level 105 mmol/L (98-107) Carbon Dioxide Level 21 mmol/L (21-32) Anion Gap 21 (6-14) Blood Urea Nitrogen 24 mg/dL (7-20) Creatinine 2.9 mg/dL (0.6-1.0) Estimated GFR (Cockcroft-Gault) 16.4 BUN/Creatinine Ratio 8 (6-20) Glucose Level 58 mg/dL (70-99) Calcium Level 7.2 mg/dL (8.5-10.1) Magnesium Level 1.5 mg/dL (1.8-2.4) Total Bilirubin 3.8 mg/dL (0.2-1.0) Aspartate Amino Transf (AST/SGOT) 240 U/L (15-37) Alanine Aminotransferase (ALT/SGPT) 147 U/L (14-59) Alkaline Phosphatase 95 U/L (46-116) Total Protein 4.9 g/dL (6.4-8.2) Albumin 2.0 g/dL (3.4-5.0) Albumin/Globulin Ratio 0.7 (1.0-1.7) Assessment and Plan Assessmemt and Plan Problems Medical Problems: (1) Abdominal pain Status: Acute (2) Bandemia Status: Acute (3) Hyperbilirubinemia Status: Acute (4) Hypokalemia Status: Acute (5) Hypomagnesemia Status: Acute (6) Lactic acidosis Status: Acute (7) Septic shock Status: Acute Comment Review of Relevant I have reviewed the following items robbi (where applicable) has been applied. Labs Laboratory Tests Test 04/15/18 20:30 04/16/18 01:20 04/16/18 02:10 04/16/18 06:15 White Blood Count 2.0 x10^3/uL (4.0-11.0) 10.1 x10^3/uL (4.0-11.0) Red Blood Count 4.86 x10^6/uL (3.50-5.40) 4.22 x10^6/uL (3.50-5.40) Hemoglobin 13.0 g/dL (12.0-15.5) 11.4 g/dL (12.0-15.5) Hematocrit 39.1 % (36.0-47.0) 35.4 % (36.0-47.0) Mean Corpuscular Volume 81 fL (79-100) 84 fL (79-100) Mean Corpuscular Hemoglobin 27 pg (25-35) 27 pg (25-35) Mean Corpuscular Hemoglobin Concent 33 g/dL (31-37) 32 g/dL (31-37) Red Cell Distribution Width 15.1 % (11.5-14.5) 15.8 % (11.5-14.5) Platelet Count 140 x10^3/uL (140-400) 141 x10^3/uL (140-400) Neutrophils (%) (Auto) 84 % (31-73) Lymphocytes (%) (Auto) 13 % (24-48) Monocytes (%) (Auto) 1 % (0-9) Eosinophils (%) (Auto) 1 % (0-3) Basophils (%) (Auto) 0 % (0-3) Neutrophils # (Auto) 1.7 x10^3uL (1.8-7.7) Lymphocytes # (Auto) 0.3 x10^3/uL (1.0-4.8) Monocytes # (Auto) 0.0 x10^3/uL (0.0-1.1) Eosinophils # (Auto) 0.0 x10^3/uL (0.0-0.7) Basophils # (Auto) 0.0 x10^3/uL (0.0-0.2) Segmented Neutrophils % 55 % (35-66) Band Neutrophils % 29 % (0-9) Lymphocytes % 13 % (24-48) Eosinophils % 2 % (0-5) Metamyelocytes % 1 % (0-0) Toxic Vacuolation Mod Platelet Estimate Adequate (ADEQUATE) Prothrombin Time 13.9 SEC (11.7-14.0) Prothromb Time International Ratio 1.1 (0.8-1.1) Activated Partial Thromboplast Time 27 SEC (24-38) Sodium Level 143 mmol/L (136-145) 146 mmol/L (136-145) Potassium Level 3.1 mmol/L (3.5-5.1) 3.9 mmol/L (3.5-5.1) Chloride Level 102 mmol/L (98-107) 108 mmol/L (98-107) Carbon Dioxide Level 27 mmol/L (21-32) 23 mmol/L (21-32) Anion Gap 14 (6-14) 15 (6-14) Blood Urea Nitrogen 11 mg/dL (7-20) 14 mg/dL (7-20) Creatinine 1.2 mg/dL (0.6-1.0) 1.4 mg/dL (0.6-1.0) Estimated GFR (Cockcroft-Gault) 45.5 38.1 BUN/Creatinine Ratio 9 (6-20) 10 (6-20) Glucose Level 93 mg/dL (70-99) 83 mg/dL (70-99) Lactic Acid Level 6.2 mmol/L (0.4-2.0) 6.5 mmol/L (0.4-2.0) 5.9 mmol/L (0.4-2.0) Calcium Level 9.4 mg/dL (8.5-10.1) 8.0 mg/dL (8.5-10.1) Magnesium Level 1.2 mg/dL (1.8-2.4) 1.6 mg/dL (1.8-2.4) Total Bilirubin 3.6 mg/dL (0.2-1.0) 3.5 mg/dL (0.2-1.0) Aspartate Amino Transf (AST/SGOT) 211 U/L (15-37) 136 U/L (15-37) Alanine Aminotransferase (ALT/SGPT) 155 U/L (14-59) 119 U/L (14-59) Alkaline Phosphatase 74 U/L (46-116) 53 U/L (46-116) Creatine Kinase 118 U/L (26-192) Creatine Kinase MB (Mass) < 0.5 ng/mL (0.0-3.6) Creatine Kinase MB Relative Index % (0-4) Troponin I Quantitative < 0.017 ng/mL (0.000-0.055) 0.027 ng/mL (0.000-0.055) 0.027 ng/mL (0.000-0.055) Total Protein 7.3 g/dL (6.4-8.2) 5.5 g/dL (6.4-8.2) Albumin 3.6 g/dL (3.4-5.0) 2.7 g/dL (3.4-5.0) Albumin/Globulin Ratio 1.0 (1.0-1.7) 1.0 (1.0-1.7) Lipase 72 U/L (73-393) Nasal Screen MRSA (PCR) Negative (Negative) Reticulocyte Count (auto) 1.9 % (0.5-2.5) Iron Level 9 ug/dL (50-170) Total Iron Binding Capacity 372 ug/dL (250-450) Iron Saturation 2 % (15-34) Vitamin B12 Level 616 pg/mL (247-911) Hepatitis A IgM Antibody Nonreactive (Nonreactive) Hepatitis B Surface Antigen Nonreactive (Nonreactive) Hepatitis B Core IgM Antibody Nonreactive (Nonreactive) Hepatitis C IgG Antibody Nonreactive (Nonreactive) Test 04/16/18 09:00 04/16/18 11:43 04/16/18 13:17 04/16/18 13:25 Urine Collection Type Unknown Urine Color [place] Urine Clarity Clear Urine pH 5.5 Urine Specific Otis 1.025 Urine Protein 30 mg/dL (NEG-TRACE) Urine Glucose (UA) Negative mg/dL (NEG) Urine Ketones (Stick) 15 mg/dL (NEG) Urine Blood Negative (NEG) Urine Nitrite Positive (NEG) Urine Bilirubin Large (NEG) Urine Urobilinogen Dipstick 1.0 mg/dL (0.2 mg/dL) Urine Leukocyte Esterase Small (NEG) Urine RBC Occ /HPF (0-2) Urine WBC 11-20 /HPF (0-4) Urine Squamous Epithelial Cells Many /LPF Urine Renal Epithelial Cells Few /LPF Urine Bacteria Many /HPF (0-FEW) Urine Mucus Mod /LPF Urine Opiates Screen Pos (NEG) Urine Methadone Screen Neg (NEG) Urine Barbiturates Neg (NEG) Urine Phencyclidine Screen Neg (NEG) Urine Amphetamine/Methamphetamine Neg (NEG) Urine Benzodiazepines Screen Pos (NEG) Urine Cocaine Screen Neg (NEG) Urine Cannabinoids Screen Pos (NEG) Urine Ethyl Alcohol Neg (NEG) O2 Saturation 87 % (92-99) 91 % (92-99) Arterial Blood pH 7.26 (7.35-7.45) 7.17 (7.35-7.45) Arterial Blood pCO2 at Patient Temp 51 mmHg (35-46) 45 mmHg (35-46) Arterial Blood pO2 at Patient Temp 58 mmHg (65-108) 73 mmHg (65-108) Arterial Blood HCO3 22 mmol/L (21-28) 16 mmol/L (21-28) Arterial Blood Base Excess -5 mmol/L (-3-3) -12 mmol/L (-3-3) FiO2 36 50 Sodium Level 144 mmol/L (136-145) Potassium Level 4.7 mmol/L (3.5-5.1) Chloride Level 107 mmol/L (98-107) Carbon Dioxide Level 24 mmol/L (21-32) Anion Gap 13 (6-14) Blood Urea Nitrogen 18 mg/dL (7-20) Creatinine 1.9 mg/dL (0.6-1.0) Estimated GFR (Cockcroft-Gault) 26.8 Glucose Level 68 mg/dL (70-99) Lactic Acid Level 5.1 mmol/L (0.4-2.0) Calcium Level 7.8 mg/dL (8.5-10.1) Test 04/16/18 20:00 04/17/18 01:09 04/17/18 04:00 04/17/18 08:00 O2 Saturation 90 % (92-99) 90 % (92-99) 93 % (92-99) Arterial Blood pH 7.21 (7.35-7.45) 7.20 (7.35-7.45) 7.17 (7.35-7.45) Arterial Blood pCO2 at Patient Temp 42 mmHg (35-46) 45 mmHg (35-46) 47 mmHg (35-46) Arterial Blood pO2 at Patient Temp 69 mmHg (65-108) 67 mmHg (65-108) 74 mmHg (65-108) Arterial Blood HCO3 16 mmol/L (21-28) 17 mmol/L (21-28) 17 mmol/L (21-28) Arterial Blood Base Excess -11 mmol/L (-3-3) -11 mmol/L (-3-3) -12 mmol/L (-3-3) FiO2 60 90 100 Arterial Blood pH (Temp corrected) 7.18 7.16 Arterial Blood pCO2 (Temp correct) 48 mmHg 47 mmHg Arterial Blood pO2 (Temp corrected) 73 mmHg 76 mmHg White Blood Count 7.9 x10^3/uL (4.0-11.0) Red Blood Count 3.64 x10^6/uL (3.50-5.40) Hemoglobin 9.6 g/dL (12.0-15.5) Hematocrit 31.1 % (36.0-47.0) Mean Corpuscular Volume 85 fL (79-100) Mean Corpuscular Hemoglobin 26 pg (25-35) Mean Corpuscular Hemoglobin Concent 31 g/dL (31-37) Red Cell Distribution Width 16.7 % (11.5-14.5) Platelet Count 76 x10^3/uL (140-400) Neutrophils (%) (Auto) 60 % (31-73) Lymphocytes (%) (Auto) 26 % (24-48) Monocytes (%) (Auto) 13 % (0-9) Eosinophils (%) (Auto) 1 % (0-3) Basophils (%) (Auto) 0 % (0-3) Neutrophils # (Auto) 4.7 x10^3uL (1.8-7.7) Lymphocytes # (Auto) 2.1 x10^3/uL (1.0-4.8) Monocytes # (Auto) 1.0 x10^3/uL (0.0-1.1) Eosinophils # (Auto) 0.1 x10^3/uL (0.0-0.7) Basophils # (Auto) 0.0 x10^3/uL (0.0-0.2) Prothrombin Time 21.5 SEC (11.7-14.0) Prothromb Time International Ratio 1.9 (0.8-1.1) Sodium Level 147 mmol/L (136-145) Potassium Level 3.5 mmol/L (3.5-5.1) Chloride Level 105 mmol/L (98-107) Carbon Dioxide Level 21 mmol/L (21-32) Anion Gap 21 (6-14) Blood Urea Nitrogen 24 mg/dL (7-20) Creatinine 2.9 mg/dL (0.6-1.0) Estimated GFR (Cockcroft-Gault) 16.4 BUN/Creatinine Ratio 8 (6-20) Glucose Level 58 mg/dL (70-99) Calcium Level 7.2 mg/dL (8.5-10.1) Magnesium Level 1.5 mg/dL (1.8-2.4) Total Bilirubin 3.8 mg/dL (0.2-1.0) Aspartate Amino Transf (AST/SGOT) 240 U/L (15-37) Alanine Aminotransferase (ALT/SGPT) 147 U/L (14-59) Alkaline Phosphatase 95 U/L (46-116) Total Protein 4.9 g/dL (6.4-8.2) Albumin 2.0 g/dL (3.4-5.0) Albumin/Globulin Ratio 0.7 (1.0-1.7) Laboratory Tests Test 04/16/18 09:00 04/16/18 11:43 04/16/18 13:17 04/16/18 13:25 Urine Collection Type Unknown Urine Color [place] Urine Clarity Clear Urine pH 5.5 Urine Specific Otis 1.025 Urine Protein 30 mg/dL (NEG-TRACE) Urine Glucose (UA) Negative mg/dL (NEG) Urine Ketones (Stick) 15 mg/dL (NEG) Urine Blood Negative (NEG) Urine Nitrite Positive (NEG) Urine Bilirubin Large (NEG) Urine Urobilinogen Dipstick 1.0 mg/dL (0.2 mg/dL) Urine Leukocyte Esterase Small (NEG) Urine RBC Occ /HPF (0-2) Urine WBC 11-20 /HPF (0-4) Urine Squamous Epithelial Cells Many /LPF Urine Renal Epithelial Cells Few /LPF Urine Bacteria Many /HPF (0-FEW) Urine Mucus Mod /LPF Urine Opiates Screen Pos (NEG) Urine Methadone Screen Neg (NEG) Urine Barbiturates Neg (NEG) Urine Phencyclidine Screen Neg (NEG) Urine Amphetamine/Methamphetamine Neg (NEG) Urine Benzodiazepines Screen Pos (NEG) Urine Cocaine Screen Neg (NEG) Urine Cannabinoids Screen Pos (NEG) Urine Ethyl Alcohol Neg (NEG) O2 Saturation 87 % (92-99) 91 % (92-99) Arterial Blood pH 7.26 (7.35-7.45) 7.17 (7.35-7.45) Arterial Blood pCO2 at Patient Temp 51 mmHg (35-46) 45 mmHg (35-46) Arterial Blood pO2 at Patient Temp 58 mmHg (65-108) 73 mmHg (65-108) Arterial Blood HCO3 22 mmol/L (21-28) 16 mmol/L (21-28) Arterial Blood Base Excess -5 mmol/L (-3-3) -12 mmol/L (-3-3) FiO2 36 50 Sodium Level 144 mmol/L (136-145) Potassium Level 4.7 mmol/L (3.5-5.1) Chloride Level 107 mmol/L (98-107) Carbon Dioxide Level 24 mmol/L (21-32) Anion Gap 13 (6-14) Blood Urea Nitrogen 18 mg/dL (7-20) Creatinine 1.9 mg/dL (0.6-1.0) Estimated GFR (Cockcroft-Gault) 26.8 Glucose Level 68 mg/dL (70-99) Lactic Acid Level 5.1 mmol/L (0.4-2.0) Calcium Level 7.8 mg/dL (8.5-10.1) Test 04/16/18 20:00 04/17/18 01:09 04/17/18 04:00 04/17/18 08:00 O2 Saturation 90 % (92-99) 90 % (92-99) 93 % (92-99) Arterial Blood pH 7.21 (7.35-7.45) 7.20 (7.35-7.45) 7.17 (7.35-7.45) Arterial Blood pCO2 at Patient Temp 42 mmHg (35-46) 45 mmHg (35-46) 47 mmHg (35-46) Arterial Blood pO2 at Patient Temp 69 mmHg (65-108) 67 mmHg (65-108) 74 mmHg (65-108) Arterial Blood HCO3 16 mmol/L (21-28) 17 mmol/L (21-28) 17 mmol/L (21-28) Arterial Blood Base Excess -11 mmol/L (-3-3) -11 mmol/L (-3-3) -12 mmol/L (-3-3) FiO2 60 90 100 Arterial Blood pH (Temp corrected) 7.18 7.16 Arterial Blood pCO2 (Temp correct) 48 mmHg 47 mmHg Arterial Blood pO2 (Temp corrected) 73 mmHg 76 mmHg White Blood Count 7.9 x10^3/uL (4.0-11.0) Red Blood Count 3.64 x10^6/uL (3.50-5.40) Hemoglobin 9.6 g/dL (12.0-15.5) Hematocrit 31.1 % (36.0-47.0) Mean Corpuscular Volume 85 fL (79-100) Mean Corpuscular Hemoglobin 26 pg (25-35) Mean Corpuscular Hemoglobin Concent 31 g/dL (31-37) Red Cell Distribution Width 16.7 % (11.5-14.5) Platelet Count 76 x10^3/uL (140-400) Neutrophils (%) (Auto) 60 % (31-73) Lymphocytes (%) (Auto) 26 % (24-48) Monocytes (%) (Auto) 13 % (0-9) Eosinophils (%) (Auto) 1 % (0-3) Basophils (%) (Auto) 0 % (0-3) Neutrophils # (Auto) 4.7 x10^3uL (1.8-7.7) Lymphocytes # (Auto) 2.1 x10^3/uL (1.0-4.8) Monocytes # (Auto) 1.0 x10^3/uL (0.0-1.1) Eosinophils # (Auto) 0.1 x10^3/uL (0.0-0.7) Basophils # (Auto) 0.0 x10^3/uL (0.0-0.2) Prothrombin Time 21.5 SEC (11.7-14.0) Prothromb Time International Ratio 1.9 (0.8-1.1) Sodium Level 147 mmol/L (136-145) Potassium Level 3.5 mmol/L (3.5-5.1) Chloride Level 105 mmol/L (98-107) Carbon Dioxide Level 21 mmol/L (21-32) Anion Gap 21 (6-14) Blood Urea Nitrogen 24 mg/dL (7-20) Creatinine 2.9 mg/dL (0.6-1.0) Estimated GFR (Cockcroft-Gault) 16.4 BUN/Creatinine Ratio 8 (6-20) Glucose Level 58 mg/dL (70-99) Calcium Level 7.2 mg/dL (8.5-10.1) Magnesium Level 1.5 mg/dL (1.8-2.4) Total Bilirubin 3.8 mg/dL (0.2-1.0) Aspartate Amino Transf (AST/SGOT) 240 U/L (15-37) Alanine Aminotransferase (ALT/SGPT) 147 U/L (14-59) Alkaline Phosphatase 95 U/L (46-116) Total Protein 4.9 g/dL (6.4-8.2) Albumin 2.0 g/dL (3.4-5.0) Albumin/Globulin Ratio 0.7 (1.0-1.7) Microbiology 04/16/18 Blood Culture - Preliminary, Resulted NO GROWTH AFTER 1 DAY Medications Current Medications Ondansetron HCl (Zofran) 4 mg 1X ONCE IM ; Start 04/15/18 at 20:45; Stop at 20:51; Status DC Ondansetron HCl (Zofran) 4 mg 1X ONCE IV Last administered on 04/15/18at 21:24 ; Start 04/15/18 at 21:00; Stop 04/15/18 at 21:01; Status DC Famotidine (Pepcid Vial) 20 mg 1X ONCE IVP Last administered on 04/15/18at 21: 23; Start 04/15/18 at 21:15; Stop 04/15/18 at 21:16; Status DC Hyoscyamine (Anaspaz) 0.125 mg 1X ONCE PO Last administered on 04/15/18at 21:23 ; Start 04/15/18 at 21:15; Stop 04/15/18 at 21:16; Status DC Lorazepam (Ativan) 0.5 mg 1X ONCE IV Last administered on 04/15/18at 21:21; Start 04/15/18 at 21:15; Stop 04/15/18 at 21:16; Status DC Sodium Chloride 1,000 ml @ 1,000 mls/hr 1X ONCE IV Last administered on at 21:22; Start 04/15/18 at 21:15; Stop 04/15/18 at 22:14; Status DC Fentanyl Citrate (Fentanyl 2ml Vial) 50 mcg 1X ONCE IV Last administered on at 22:13; Start 04/15/18 at 22:00; Stop 04/15/18 at 22:01; Status DC Magnesium Sulfate 50 ml @ 25 mls/hr 1X ONCE IV Last administered on 04/15/18at 23:37; Start 04/15/18 at 22:15; Stop 04/16/18 at 00:14; Status DC Piperacillin Sod/ Tazobactam Sod 3.375 gm/Sodium Chloride 50 ml @ 100 mls/hr 1X ONCE IV Last administered on 04/16/18at 01:23; Start 04/15/18 at 23:00; Stop 04/16/18 at 19:50; Status DC Sodium Chloride 1,000 ml @ 1,000 mls/hr 1X ONCE IV Last administered on at 01:15; Start 04/15/18 at 23:00; Stop 04/15/18 at 23:59; Status DC Sodium Chloride 1,000 ml @ 1,000 mls/hr 1X ONCE IV Last administered on at 01:19; Start 04/16/18 at 00:00; Stop 04/16/18 at 00:59; Status DC Sodium Chloride 500 ml @ 500 mls/hr 1X ONCE IV ; Start 04/16/18 at 01:00; Stop 04/16/18 at 01:59; Status DC Fentanyl Citrate (Fentanyl 2ml Vial) 50 mcg 1X ONCE IV Last administered on at 23:38; Start 04/15/18 at 23:00; Stop 04/15/18 at 23:01; Status DC Ondansetron HCl (Zofran) 4 mg PRN Q8HRS PRN IV NAUSEA/VOMITING Last administered on 04/16/18at 13:20; Start 04/16/18 at 00:00; Stop 04/16/18 at 23:59 ; Status DC Fentanyl Citrate (Fentanyl 2ml Vial) 50 mcg PRN Q2HR PRN IV PAIN Last administered on 04/16/18at 02:39; Start 04/16/18 at 00:00; Stop 04/16/18 at 02:57 ; Status DC Potassium Chloride/Water 100 ml @ 100 mls/hr Q1H IV Last administered on at 04:51; Start 04/16/18 at 00:00; Stop 04/16/18 at 03:59; Status DC Morphine Sulfate (Morphine Sulfate) 4 mg 1X ONCE IV Last administered on at 01:15; Start 04/16/18 at 00:45; Stop 04/16/18 at 00:46; Status DC Ondansetron HCl (Zofran) 4 mg 1X ONCE IV Last administered on 04/16/18at 01:27 ; Start 04/16/18 at 00:45; Stop 04/16/18 at 00:46; Status DC Morphine Sulfate (Morphine Sulfate) 4 mg 1X ONCE IV Last administered on at 01:41; Start 04/16/18 at 01:45; Stop 04/16/18 at 01:46; Status DC Morphine Sulfate (Morphine Sulfate) 4 mg PRN Q3HRS PRN IV PAIN Last administered on 04/16/18at 15:37; Start 04/16/18 at 03:00 Ringer's Solution 1,000 ml @ 125 mls/hr Q8H IV Last administered on 04/16/18at 10:28; Start 04/16/18 at 03:00; Stop 04/16/18 at 21:06; Status DC Piperacillin Sod/ Tazobactam Sod 3.375 gm/Sodium Chloride 50 ml @ 100 mls/hr Q6HRS IV Last administered on 04/16/18at 18:10; Start 04/16/18 at 06:00; Stop at 20:02; Status DC Ringer's Solution 1,000 ml @ 999 mls/hr Q1H1M IV Last administered on at 10:23; Start 04/16/18 at 09:30; Stop 04/16/18 at 11:30; Status DC Pantoprazole Sodium (PROTONIX VIAL for IV PUSH) 40 mg DAILYAC IVP Last administered on 04/16/18at 10:28; Start 04/16/18 at 11:30 Norepinephrine Bitartrate 250 ml @ 1.875 mls/ hr CONT PRN IV SEE I/O RECORD Last administered on 04/17/18at 07:10; Start 04/16/18 at 12:00 Vancomycin HCl (Vanco Per Pharmacy) 1 each PRN DAILY PRN MC SEE COMMENTS; Start 04/16/18 at 13:30; Stop 04/16/18 at 14:48; Status DC Vancomycin HCl 2 gm/Sodium Chloride 500 ml @ 250 mls/hr 1X ONCE IV Last administered on 04/16/18at 13:31; Start 04/16/18 at 13:30; Stop 04/16/18 at 14:47 ; Status DC Vasopressin 40 unit/Dextrose 102 ml @ 6 mls/hr CONT PRN IV SEE I/O RECORD Last administered on 04/17/18at 04:31; Start 04/16/18 at 13:45 Lorazepam (Ativan) 0.5 mg PRN Q6HRS PRN PO ANXIETY / AGITATION 1st Choice; Start 04/16/18 at 14:00; Status Cancel Lorazepam (Ativan) 1 mg PRN Q6HRS PRN PO ANXIETY / AGITATION 2ND CHOICE; Start 04/16/18 at 14:00; Status Cancel Lorazepam (Ativan) 2 mg STK-MED ONCE .ROUTE ; Start 04/16/18 at 13:52; Stop at 13:53; Status DC Lorazepam (Ativan) 1 mg PRN Q6HRS PRN IV ANXIETY / AGITATION Last administered on 04/16/18at 14:36; Start 04/16/18 at 14:15 Lorazepam (Ativan) 0.5 mg PRN Q6HRS PRN IV ANXIETY / AGITATION; Start 04/16/18 at 14:15; Stop 04/16/18 at 22:32; Status DC Vancomycin HCl (Vancomycin Random Level) 1 each 1X ONCE MC ; Start 04/17/18 at 05:00; Stop 04/17/18 at 05:00; Status DC Daptomycin 680 mg/ Sodium Chloride 50 ml @ 100 mls/hr ONCE ONCE IV Last administered on 04/16/18at 17:09; Start 04/16/18 at 15:00; Stop 04/16/18 at 15:29 ; Status DC Furosemide (Lasix) 80 mg 1X ONCE IVP Last administered on 04/16/18at 18:05; Start 04/16/18 at 15:45; Stop 04/16/18 at 15:46; Status DC Sodium Chloride 500 ml @ 500 mls/hr PRN Q1HR PRN IV low bp Last administered on 04/17/18at 05:55; Start 04/16/18 at 15:45 Succinylcholine Chloride (Anectine) 100 mg 1X ONCE IV Last administered on at 16:15; Start 04/16/18 at 16:15; Stop 04/16/18 at 16:25; Status DC Succinylcholine Chloride (Anectine) 200 mg STK-MED ONCE .ROUTE ; Start 04/16/18 at 16:08; Stop 04/16/18 at 16:09; Status DC Fentanyl Citrate 30 ml @ 0 mls/hr CONT PRN IV SEE PROTOCOL Last administered on 04/17/18at 00:13; Start 04/16/18 at 16:15 Chlorhexidine Gluconate (Peridex) 15 ml BID MM Last administered on 04/16/18at 21:13; Start 04/16/18 at 21:00 Midazolam HCl 100 ml @ 0 mls/hr CONT PRN IV SEE PROTOCOL Last administered on at 07:11; Start 04/16/18 at 16:15 Etomidate (Amidate) 20 mg STK-MED ONCE IV ; Start 04/16/18 at 16:18; Stop at 16:19; Status DC Fentanyl Citrate (Fentanyl 2ml Vial) 100 mcg STK-MED ONCE .ROUTE ; Start at 16:22; Stop 04/16/18 at 16:23; Status DC Midazolam HCl (Versed) 5 mg STK-MED ONCE .ROUTE ; Start 04/16/18 at 16:24; Stop 04/16/18 at 16:25; Status DC Vecuronium [place] (Norcuron Bolus) 10 mg STK-MED ONCE IV ; Start 04/16/18 at 16 :26; Stop 04/16/18 at 16:27; Status DC Sodium Bicarbonate (Sodium Bicarb Adult 8.4% Syr) 100 meq 1X ONCE IV Last administered on 04/16/18at 18:02; Start 04/16/18 at 17:30; Stop 04/16/18 at 17:39 ; Status DC Acetaminophen (Tylenol Supp) 650 mg PRN Q6HRS PRN OR MILD PAIN / TEMP Last administered on 04/16/18at 21:07; Start 04/16/18 at 19:45 Piperacillin Sod/ Tazobactam Sod 2.25 gm/Sodium Chloride 50 ml @ 100 mls/hr Q6HRS IV Last administered on 04/17/18at 05:29; Start 04/17/18 at 00:00 Levofloxacin/ Dextrose 150 ml @ 100 mls/hr 1X ONCE IV Last administered on at 20:51; Start 04/16/18 at 20:30; Stop 04/16/18 at 21:59; Status DC Sodium Bicarbonate (Sodium Bicarb Adult 8.4% Syr) 100 meq 1X ONCE IV Last administered on 04/16/18at 20:39; Start 04/16/18 at 20:30; Stop 04/16/18 at 20:31 ; Status DC Heparin Sodium (Porcine) (Heparin Sodium) 5,000 unit Q8HRS SQ Last administered on 04/17/18at 05:33; Start 04/16/18 at 22:00 Sodium Bicarbonate 150 meq/Dextrose 1,150 ml @ 125 mls/hr Q9H12M IV Last administered on 04/16/18at 21:50; Start 04/16/18 at 21:30 Dopamine HCl/ Dextrose 250 ml @ 8.471 mls/ hr CONT PRN IV SEE I/O RECORD Last administered on 04/17/18at 04:27; Start 04/16/18 at 20:45 Lorazepam (Ativan) 2 mg PRN Q6HRS PRN IV ANXIETY / AGITATION Last administered on 04/16/18at 22:44; Start 04/16/18 at 22:45 Vecuronium [place] (Norcuron Bolus) 6 mg PRN Q4HRS PRN IV SEDATION Last administered on 04/17/18at 04:26; Start 04/16/18 at 22:30 Multi-Ingred Cream/Lotion/Oil/ Oint (Artificial Tears Eye Ointment) 1 caity PRN Q1HR PRN OU DRY EYE Last administered on 04/17/18at 00:13; Start 04/17/18 at 00: 00 Lidocaine/Sodium Bicarbonate (Buffered Lidocaine 1%) 3 ml STK-MED ONCE .ROUTE ; Start 04/17/18 at 07:19; Stop 04/17/18 at 07:20; Status DC Heparin Sodium (Porcine) (Heparin Sodium) 10,000 unit STK-MED ONCE .ROUTE ; Start 04/17/18 at 07:19; Stop 04/17/18 at 07:20; Status DC Active Scripts Active Promethazine Hcl 25 Mg Tablet 1 Tab PO PRN Q6HRS PRN Reported Losartan-Hctz 100-25 Mg Tab (Losartan/Hydrochlorothiazide) 1 Each Tablet 1 Tab PO DAILY Famotidine 20 Mg Tablet 20 Mg PO BID Robaxin (Methocarbamol) 500 Mg Tablet 1 Tab PO TID PRN Aspirin Ec (Aspirin) 325 Mg Tablet. 1 Tab PO BID Albuterol Sulfate Conc Neb Soln (Albuterol Sulfate) 2.5 Mg/0.5 Ml Vial.neb 1 Vial NEB PRN Q6HRS PRN Multivitamins (Multivitamin) 1 Each Tablet 1 Tab PO DAILY Carafate (Sucralfate) 1 Gm Tablet 1 Tab PO QIDACHS Potassium Chloride 10 Meq Tab.sr.24h 10 Meq PO DAILY Amlodipine Besylate 5 Mg Tablet 5 Mg PO HS Percocet 5-325 Mg Tablet (Oxycodone/Acetaminophen) 1 Each Tablet 1 Tab PO TID PRN Alprazolam 1 Mg Tablet 1 Tab PO TID PRN Proair Hfa Inhaler (Albuterol Sulfate) 8.5 Gm Hfa.aer.ad 1 Puff INH PRN Q6HRS PRN Benadryl Allergy (Diphenhydramine Hcl) 25 Mg Tablet 50 Mg PO BID Lovastatin 20 Mg Tablet 20 Mg PO HS Bupropion Hcl 75 Mg Tablet 150 Mg PO DAILY Citalopram Hbr (Citalopram Hydrobromide) 40 Mg Tablet 1 Tab PO DAILY Montelukast Sodium Tablet (Montelukast Sodium) 10 Mg Tablet 10 Mg PO HS Pantoprazole Sodium 40 Mg Tablet.dr 1 Tab PO DAILY Mirtazapine 30 Mg Tablet 1 Tab PO QHS Atenolol 50 Mg Tablet 1 Tab PO BID Vitals/I & O Vital Sign - Last 24 Hours 04/16/18 04/16/18 04/16/18 04/16/18 09:00 09:06 09:36 10:18 Pulse 75 83 Resp 23 36 26 25 B/P (MAP) 83/48 (60) 72/42 (52) Pulse Ox 93 94 91 O2 Delivery Nasal Cannula Nasal Cannula Nasal Cannula O2 Flow Rate 3.5 3.5 3.5 04/16/18 04/16/18 04/16/18 04/16/18 11:00 12:00 12:00 12:10 Temp 98.4 98.4 Pulse 81 81 78 Resp 32 28 B/P (MAP) 73/46 (55) 82/43 (56) 74/42 (53) Pulse Ox 91 91 O2 Delivery Nasal Cannula Nasal Cannula Nasal Cannula O2 Flow Rate 3.5 3.5 3.5 04/16/18 04/16/18 04/16/18 04/16/18 12:20 12:35 12:49 13:21 Pulse 80 78 77 Resp B/P (MAP) 82/43 (56) 90/47 (61) 78/50 (59) Pulse Ox 91 O2 Delivery Nasal Cannula O2 Flow Rate 4.0 2/04/16/18 04/16/18 04/16/18 13:30 13:50 15:00 15:00 Pulse 82 82 Resp 30 B/P (MAP) 76/64 (68) 85/52 (63) Pulse Ox 94 91 91 O2 Delivery Venturi Mask 04/16/18 04/16/18 04/16/18 04/16/18 15:37 16:00 16:00 16:07 Pulse 98 Resp B/P (MAP) 104/50 (68) Pulse Ox 91 95 96 O2 Delivery Nasal Cannula Bi-pap BiPAP/CPAP Nasal Cannula O2 Flow Rate 4.0 04/16/18 04/16/18 04/16/18 04/16/18 16:44 17:00 17:00 17:30 Temp 98.4 98.4 Pulse 98 Resp 20 B/P (MAP) 104/50 (68) Pulse Ox 96 92 92 O2 Delivery Ventilator Ventilator Nasal Cannula Nasal Cannula O2 Flow Rate 4.0 04/16/18 04/16/18 04/16/18 04/16/18 18:00 19:00 19:30 19:57 Temp 101.3 101.3 Pulse 92 94 93 Resp B/P (MAP) 105/53 (70) 92/50 (64) 77/48 (58) Pulse Ox 92 94 91 92 O2 Delivery Ventilator Ventilator Ventilator Ventilator 04/16/18 04/16/18 04/16/18 04/16/18 20:00 20:00 20:30 20:45 Temp 99.9 99.9 Pulse 92 108 94 Resp B/P (MAP) 83/46 (58) 70/33 (45) 69/39 (49) Pulse Ox 92 95 93 O2 Delivery Ventilator Bi-pap Ventilator Ventilator 04/16/18 04/16/18 04/16/18 04/16/18 20:55 21:00 21:30 21:45 Temp 102.2 102.2 Pulse 92 98 90 93 Resp 21 B/P (MAP) 73/42 (52) 107/47 (67) 75/41 (52) 79/46 (57) Pulse Ox 92 93 93 93 O2 Delivery Ventilator Ventilator Ventilator Ventilator 04/16/18 04/16/18 04/16/18 04/16/18 22:00 22:15 22:30 22:45 Pulse 95 106 98 110 Resp 28 24 24 30 B/P (MAP) 72/40 (51) 103/64 (77) 71/37 (48) 103/45 (64) Pulse Ox 95 86 87 90 O2 Delivery Ventilator Ventilator Ventilator 04/16/18 04/16/18 04/16/18 04/16/18 23:00 23:15 23:20 23:30 Pulse 118 123 128 Resp 20 20 20 B/P (MAP) 107/42 (63) 118/49 (72) 125/46 (72) Pulse Ox 93 94 94 94 O2 Delivery Ventilator Ventilator Ventilator Ventilator 04/16/18 04/16/18 04/16/18 04/17/18 23:44 23:59 23:59 00:13 Temp 102.5 102.5 Pulse 124 124 Resp 20 19 B/P (MAP) 129/52 (77) 103/45 (64) Pulse Ox 94 94 95 O2 Delivery Ventilator Ventilator Bi-pap Ventilator 04/17/18 04/17/18 04/17/18 04/17/18 00:30 00:43 01:00 01:15 Temp 101.0 101.0 Pulse 112 116 114 Resp 20 20 20 20 B/P (MAP) 101/76 (84) 81/50 (60) 78/33 (48) Pulse Ox 92 90 88 88 O2 Delivery Ventilator Ventilator Ventilator 04/17/18 04/17/18 04/17/18 04/17/18 01:30 01:41 01:45 02:21 Pulse 128 128 126 Resp 20 B/P (MAP) 105/43 (63) 102/44 (63) 80/48 (59) Pulse Ox 92 92 93 94 O2 Delivery Ventilator Ventilator Ventilator Ventilator 04/17/18 04/17/18 04/17/18 04/17/18 02:33 02:47 03:00 03:20 Pulse 128 127 128 126 Resp 27 30 30 B/P (MAP) 80/36 (51) 83/46 (58) 90/40 (57) 70/45 (53) Pulse Ox 96 93 95 94 O2 Delivery Ventilator Ventilator Ventilator Ventilator 04/17/18 04/17/18 04/17/18 04/17/18 03:31 03:51 04:00 04:00 Pulse 125 126 Resp 31 B/P (MAP) 83/32 (49) 86/42 (57) Pulse Ox 93 93 91 O2 Delivery Ventilator Ventilator Bi-pap Ventilator 04/17/18 04/17/18 04/17/18 04/17/18 04:25 04:33 04:45 05:00 Pulse 122 122 125 124 Resp 31 B/P (MAP) 72/38 (49) 77/35 (49) 91/40 (57) 91/48 (62) Pulse Ox 91 94 95 96 O2 Delivery Ventilator Ventilator Ventilator Ventilator 04/17/18 04/17/18 04/17/18 04/17/18 05:50 05:55 06:15 06:30 Pulse 122 120 120 Resp 28 B/P (MAP) 70/39 (49) 75/45 (55) 84/69 (74) Pulse Ox 96 96 97 96 O2 Delivery Ventilator Ventilator Ventilator Ventilator Intake and Output 04/16/18 04/16/18 04/17/18 14:59 22:59 06:59 Intake Total 2050 ml 4002 ml 4101.2 ml Output Total 140 ml 240 ml 85 ml Balance 1910 ml 3762 ml 4016.2 ml ERAN SINGLETON MD Apr 17, 2018 08:25
[2018-04-17] MEDS ORDERED: MAGNESIUM SULFATE 2GM 50 ML IV ONE (09:00)
[2018-04-17] MEDS: CHLORHEXIDINE 0.12% 15 ML MOUTHWASH. MM SCH (09:00)
--- NOTE | 2018-04-17 09:18 | PDOC ---
SURGICAL PROGRESS NOTE Subjective Pt intubated overnight, remains on maximal pressors, remains hypotensive. Vital Signs Vital Signs Date Time Temp Pulse Resp B/P (MAP) Pulse Ox O2 Delivery O2 Flow Rate FiO2 04/17/18 09:09 97 Ventilator 04/17/18 06:30 120 28 84/69 (74) 04/17/18 01:15 101.0 101.0 04/16/18 17:00 4.0 I&O Intake and Output 04/17/18 07:00 Intake Total 02467.2 ml Output Total 465 ml Balance 9688.2 ml IV Total 21617.2 ml Output Urine Total 465 ml PATIENT HAS A FAN: Yes (10 cc/hour UOP) Abdomen: Soft, No tenderness, Other (obese, no masses or hernias, does not react, but also on sedation) Labs Laboratory Tests Test 04/15/18 20:30 04/16/18 01:20 04/16/18 02:10 04/16/18 06:15 White Blood Count 2.0 x10^3/uL (4.0-11.0) 10.1 x10^3/uL (4.0-11.0) Red Blood Count 4.86 x10^6/uL (3.50-5.40) 4.22 x10^6/uL (3.50-5.40) Hemoglobin 13.0 g/dL (12.0-15.5) 11.4 g/dL (12.0-15.5) Hematocrit 39.1 % (36.0-47.0) 35.4 % (36.0-47.0) Mean Corpuscular Volume 81 fL (79-100) 84 fL (79-100) Mean Corpuscular Hemoglobin 27 pg (25-35) 27 pg (25-35) Mean Corpuscular Hemoglobin Concent 33 g/dL (31-37) 32 g/dL (31-37) Red Cell Distribution Width 15.1 % (11.5-14.5) 15.8 % (11.5-14.5) Platelet Count 140 x10^3/uL (140-400) 141 x10^3/uL (140-400) Neutrophils (%) (Auto) 84 % (31-73) Lymphocytes (%) (Auto) 13 % (24-48) Monocytes (%) (Auto) 1 % (0-9) Eosinophils (%) (Auto) 1 % (0-3) Basophils (%) (Auto) 0 % (0-3) Neutrophils # (Auto) 1.7 x10^3uL (1.8-7.7) Lymphocytes # (Auto) 0.3 x10^3/uL (1.0-4.8) Monocytes # (Auto) 0.0 x10^3/uL (0.0-1.1) Eosinophils # (Auto) 0.0 x10^3/uL (0.0-0.7) Basophils # (Auto) 0.0 x10^3/uL (0.0-0.2) Segmented Neutrophils % 55 % (35-66) Band Neutrophils % 29 % (0-9) Lymphocytes % 13 % (24-48) Eosinophils % 2 % (0-5) Metamyelocytes % 1 % (0-0) Toxic Vacuolation Mod Platelet Estimate Adequate (ADEQUATE) Prothrombin Time 13.9 SEC (11.7-14.0) Prothromb Time International Ratio 1.1 (0.8-1.1) Activated Partial Thromboplast Time 27 SEC (24-38) Sodium Level 143 mmol/L (136-145) 146 mmol/L (136-145) Potassium Level 3.1 mmol/L (3.5-5.1) 3.9 mmol/L (3.5-5.1) Chloride Level 102 mmol/L (98-107) 108 mmol/L (98-107) Carbon Dioxide Level 27 mmol/L (21-32) 23 mmol/L (21-32) Anion Gap 14 (6-14) 15 (6-14) Blood Urea Nitrogen 11 mg/dL (7-20) 14 mg/dL (7-20) Creatinine 1.2 mg/dL (0.6-1.0) 1.4 mg/dL (0.6-1.0) Estimated GFR (Cockcroft-Gault) 45.5 38.1 BUN/Creatinine Ratio 9 (6-20) 10 (6-20) Glucose Level 93 mg/dL (70-99) 83 mg/dL (70-99) Lactic Acid Level 6.2 mmol/L (0.4-2.0) 6.5 mmol/L (0.4-2.0) 5.9 mmol/L (0.4-2.0) Calcium Level 9.4 mg/dL (8.5-10.1) 8.0 mg/dL (8.5-10.1) Magnesium Level 1.2 mg/dL (1.8-2.4) 1.6 mg/dL (1.8-2.4) Total Bilirubin 3.6 mg/dL (0.2-1.0) 3.5 mg/dL (0.2-1.0) Aspartate Amino Transf (AST/SGOT) 211 U/L (15-37) 136 U/L (15-37) Alanine Aminotransferase (ALT/SGPT) 155 U/L (14-59) 119 U/L (14-59) Alkaline Phosphatase 74 U/L (46-116) 53 U/L (46-116) Creatine Kinase 118 U/L (26-192) Creatine Kinase MB (Mass) < 0.5 ng/mL (0.0-3.6) Creatine Kinase MB Relative Index % (0-4) Troponin I Quantitative < 0.017 ng/mL (0.000-0.055) 0.027 ng/mL (0.000-0.055) 0.027 ng/mL (0.000-0.055) Total Protein 7.3 g/dL (6.4-8.2) 5.5 g/dL (6.4-8.2) Albumin 3.6 g/dL (3.4-5.0) 2.7 g/dL (3.4-5.0) Albumin/Globulin Ratio 1.0 (1.0-1.7) 1.0 (1.0-1.7) Lipase 72 U/L (73-393) Nasal Screen MRSA (PCR) Negative (Negative) Reticulocyte Count (auto) 1.9 % (0.5-2.5) Iron Level 9 ug/dL (50-170) Total Iron Binding Capacity 372 ug/dL (250-450) Iron Saturation 2 % (15-34) Vitamin B12 Level 616 pg/mL (247-911) Hepatitis A IgM Antibody Nonreactive (Nonreactive) Hepatitis B Surface Antigen Nonreactive (Nonreactive) Hepatitis B Core IgM Antibody Nonreactive (Nonreactive) Hepatitis C IgG Antibody Nonreactive (Nonreactive) Test 04/16/18 09:00 04/16/18 11:43 04/16/18 13:17 04/16/18 13:25 Urine Collection Type Unknown Urine Color [place] Urine Clarity Clear Urine pH 5.5 Urine Specific [place] 1.025 Urine Protein 30 mg/dL (NEG-TRACE) Urine Glucose (UA) Negative mg/dL (NEG) Urine Ketones (Stick) 15 mg/dL (NEG) Urine Blood Negative (NEG) Urine Nitrite Positive (NEG) Urine Bilirubin Large (NEG) Urine Urobilinogen Dipstick 1.0 mg/dL (0.2 mg/dL) Urine Leukocyte Esterase Small (NEG) Urine RBC Occ /HPF (0-2) Urine WBC 11-20 /HPF (0-4) Urine Squamous Epithelial Cells Many /LPF Urine Renal Epithelial Cells Few /LPF Urine Bacteria Many /HPF (0-FEW) Urine Mucus Mod /LPF Urine Opiates Screen Pos (NEG) Urine Methadone Screen Neg (NEG) Urine Barbiturates Neg (NEG) Urine Phencyclidine Screen Neg (NEG) Urine Amphetamine/Methamphetamine Neg (NEG) Urine Benzodiazepines Screen Pos (NEG) Urine Cocaine Screen Neg (NEG) Urine Cannabinoids Screen Pos (NEG) Urine Ethyl Alcohol Neg (NEG) O2 Saturation 87 % (92-99) 91 % (92-99) Arterial Blood pH 7.26 (7.35-7.45) 7.17 (7.35-7.45) Arterial Blood pCO2 at Patient Temp 51 mmHg (35-46) 45 mmHg (35-46) Arterial Blood pO2 at Patient Temp 58 mmHg (65-108) 73 mmHg (65-108) Arterial Blood HCO3 22 mmol/L (21-28) 16 mmol/L (21-28) Arterial Blood Base Excess -5 mmol/L (-3-3) -12 mmol/L (-3-3) FiO2 36 50 Sodium Level 144 mmol/L (136-145) Potassium Level 4.7 mmol/L (3.5-5.1) Chloride Level 107 mmol/L (98-107) Carbon Dioxide Level 24 mmol/L (21-32) Anion Gap 13 (6-14) Blood Urea Nitrogen 18 mg/dL (7-20) Creatinine 1.9 mg/dL (0.6-1.0) Estimated GFR (Cockcroft-Gault) 26.8 Glucose Level 68 mg/dL (70-99) Lactic Acid Level 5.1 mmol/L (0.4-2.0) Calcium Level 7.8 mg/dL (8.5-10.1) Test 04/16/18 20:00 04/17/18 01:09 04/17/18 04:00 04/17/18 07:48 O2 Saturation 90 % (92-99) 90 % (92-99) Arterial Blood pH 7.21 (7.35-7.45) 7.20 (7.35-7.45) Arterial Blood pCO2 at Patient Temp 42 mmHg (35-46) 45 mmHg (35-46) Arterial Blood pO2 at Patient Temp 69 mmHg (65-108) 67 mmHg (65-108) Arterial Blood HCO3 16 mmol/L (21-28) 17 mmol/L (21-28) Arterial Blood Base Excess -11 mmol/L (-3-3) -11 mmol/L (-3-3) FiO2 60 90 Arterial Blood pH (Temp corrected) 7.18 Arterial Blood pCO2 (Temp correct) 48 mmHg Arterial Blood pO2 (Temp corrected) 73 mmHg White Blood Count 7.9 x10^3/uL (4.0-11.0) Red Blood Count 3.64 x10^6/uL (3.50-5.40) Hemoglobin 9.6 g/dL (12.0-15.5) Hematocrit 31.1 % (36.0-47.0) Mean Corpuscular Volume 85 fL (79-100) Mean Corpuscular Hemoglobin 26 pg (25-35) Mean Corpuscular Hemoglobin Concent 31 g/dL (31-37) Red Cell Distribution Width 16.7 % (11.5-14.5) Platelet Count 76 x10^3/uL (140-400) Neutrophils (%) (Auto) 60 % (31-73) Lymphocytes (%) (Auto) 26 % (24-48) Monocytes (%) (Auto) 13 % (0-9) Eosinophils (%) (Auto) 1 % (0-3) Basophils (%) (Auto) 0 % (0-3) Neutrophils # (Auto) 4.7 x10^3uL (1.8-7.7) Lymphocytes # (Auto) 2.1 x10^3/uL (1.0-4.8) Monocytes # (Auto) 1.0 x10^3/uL (0.0-1.1) Eosinophils # (Auto) 0.1 x10^3/uL (0.0-0.7) Basophils # (Auto) 0.0 x10^3/uL (0.0-0.2) Prothrombin Time 21.5 SEC (11.7-14.0) Prothromb Time International Ratio 1.9 (0.8-1.1) Sodium Level 147 mmol/L (136-145) Potassium Level 3.5 mmol/L (3.5-5.1) Chloride Level 105 mmol/L (98-107) Carbon Dioxide Level 21 mmol/L (21-32) Anion Gap 21 (6-14) Blood Urea Nitrogen 24 mg/dL (7-20) Creatinine 2.9 mg/dL (0.6-1.0) Estimated GFR (Cockcroft-Gault) 16.4 BUN/Creatinine Ratio 8 (6-20) Glucose Level 58 mg/dL (70-99) Calcium Level 7.2 mg/dL (8.5-10.1) Magnesium Level 1.5 mg/dL (1.8-2.4) Total Bilirubin 3.8 mg/dL (0.2-1.0) Aspartate Amino Transf (AST/SGOT) 240 U/L (15-37) Alanine Aminotransferase (ALT/SGPT) 147 U/L (14-59) Alkaline Phosphatase 95 U/L (46-116) Total Protein 4.9 g/dL (6.4-8.2) Albumin 2.0 g/dL (3.4-5.0) Albumin/Globulin Ratio 0.7 (1.0-1.7) Lactic Acid Level 10.2 mmol/L (0.4-2.0) Test 04/17/18 08:00 O2 Saturation 93 % (92-99) Arterial Blood pH 7.17 (7.35-7.45) Arterial Blood pH (Temp corrected) 7.16 Arterial Blood pCO2 at Patient Temp 47 mmHg (35-46) Arterial Blood pCO2 (Temp correct) 47 mmHg Arterial Blood pO2 at Patient Temp 74 mmHg (65-108) Arterial Blood pO2 (Temp corrected) 76 mmHg Arterial Blood HCO3 17 mmol/L (21-28) Arterial Blood Base Excess -12 mmol/L (-3-3) FiO2 100 Laboratory Tests Test 04/16/18 11:43 04/16/18 13:17 04/16/18 13:25 04/16/18 20:00 O2 Saturation 87 % (92-99) 91 % (92-99) 90 % (92-99) Arterial Blood pH 7.26 (7.35-7.45) 7.17 (7.35-7.45) 7.21 (7.35-7.45) Arterial Blood pCO2 at Patient Temp 51 mmHg (35-46) 45 mmHg (35-46) 42 mmHg (35-46) Arterial Blood pO2 at Patient Temp 58 mmHg (65-108) 73 mmHg (65-108) 69 mmHg (65-108) Arterial Blood HCO3 22 mmol/L (21-28) 16 mmol/L (21-28) 16 mmol/L (21-28) Arterial Blood Base Excess -5 mmol/L (-3-3) -12 mmol/L (-3-3) -11 mmol/L (-3-3) FiO2 36 50 60 Sodium Level 144 mmol/L (136-145) Potassium Level 4.7 mmol/L (3.5-5.1) Chloride Level 107 mmol/L (98-107) Carbon Dioxide Level 24 mmol/L (21-32) Anion Gap 13 (6-14) Blood Urea Nitrogen 18 mg/dL (7-20) Creatinine 1.9 mg/dL (0.6-1.0) Estimated GFR (Cockcroft-Gault) 26.8 Glucose Level 68 mg/dL (70-99) Lactic Acid Level 5.1 mmol/L (0.4-2.0) Calcium Level 7.8 mg/dL (8.5-10.1) Test 04/17/18 01:09 04/17/18 04:00 04/17/18 07:48 04/17/18 08:00 O2 Saturation 90 % (92-99) 93 % (92-99) Arterial Blood pH 7.20 (7.35-7.45) 7.17 (7.35-7.45) Arterial Blood pH (Temp corrected) 7.18 7.16 Arterial Blood pCO2 at Patient Temp 45 mmHg (35-46) 47 mmHg (35-46) Arterial Blood pCO2 (Temp correct) 48 mmHg 47 mmHg Arterial Blood pO2 at Patient Temp 67 mmHg (65-108) 74 mmHg (65-108) Arterial Blood pO2 (Temp corrected) 73 mmHg 76 mmHg Arterial Blood HCO3 17 mmol/L (21-28) 17 mmol/L (21-28) Arterial Blood Base Excess -11 mmol/L (-3-3) -12 mmol/L (-3-3) FiO2 90 100 White Blood Count 7.9 x10^3/uL (4.0-11.0) Red Blood Count 3.64 x10^6/uL (3.50-5.40) Hemoglobin 9.6 g/dL (12.0-15.5) Hematocrit 31.1 % (36.0-47.0) Mean Corpuscular Volume 85 fL (79-100) Mean Corpuscular Hemoglobin 26 pg (25-35) Mean Corpuscular Hemoglobin Concent 31 g/dL (31-37) Red Cell Distribution Width 16.7 % (11.5-14.5) Platelet Count 76 x10^3/uL (140-400) Neutrophils (%) (Auto) 60 % (31-73) Lymphocytes (%) (Auto) 26 % (24-48) Monocytes (%) (Auto) 13 % (0-9) Eosinophils (%) (Auto) 1 % (0-3) Basophils (%) (Auto) 0 % (0-3) Neutrophils # (Auto) 4.7 x10^3uL (1.8-7.7) Lymphocytes # (Auto) 2.1 x10^3/uL (1.0-4.8) Monocytes # (Auto) 1.0 x10^3/uL (0.0-1.1) Eosinophils # (Auto) 0.1 x10^3/uL (0.0-0.7) Basophils # (Auto) 0.0 x10^3/uL (0.0-0.2) Prothrombin Time 21.5 SEC (11.7-14.0) Prothromb Time International Ratio 1.9 (0.8-1.1) Sodium Level 147 mmol/L (136-145) Potassium Level 3.5 mmol/L (3.5-5.1) Chloride Level 105 mmol/L (98-107) Carbon Dioxide Level 21 mmol/L (21-32) Anion Gap 21 (6-14) Blood Urea Nitrogen 24 mg/dL (7-20) Creatinine 2.9 mg/dL (0.6-1.0) Estimated GFR (Cockcroft-Gault) 16.4 BUN/Creatinine Ratio 8 (6-20) Glucose Level 58 mg/dL (70-99) Calcium Level 7.2 mg/dL (8.5-10.1) Magnesium Level 1.5 mg/dL (1.8-2.4) Total Bilirubin 3.8 mg/dL (0.2-1.0) Aspartate Amino Transf (AST/SGOT) 240 U/L (15-37) Alanine Aminotransferase (ALT/SGPT) 147 U/L (14-59) Alkaline Phosphatase 95 U/L (46-116) Total Protein 4.9 g/dL (6.4-8.2) Albumin 2.0 g/dL (3.4-5.0) Albumin/Globulin Ratio 0.7 (1.0-1.7) Lactic Acid Level 10.2 mmol/L (0.4-2.0) I have reviewed the following CT and US without obvious findings Problem List Problems Medical Problems: (1) Abdominal pain Status: Acute (2) Bandemia Status: Acute (3) Hyperbilirubinemia Status: Acute (4) Hypokalemia Status: Acute (5) Hypomagnesemia Status: Acute (6) Lactic acidosis Status: Acute (7) Septic shock Status: Acute Assessment/Plan sepsis, unknown cause d/w hospitalist and ID pt is a prohibitive surgical candidate, given low blood pressure and shock liver with coagulopathy. Unknown if surgically correctable process is going on. d/w pt's daughter, whom appears informed of pt's status, and not interested in surgical intervention. will check bladder pressure, to help identify possible cause, but unlikely to be able to intervene EDMOND IVEY MD Apr 17, 2018 09:18
--- NOTE | 2018-04-17 09:24 | CONS ---
DATE OF CONSULTATION: 04/17/2018 PATIENT'S ROOM: ICU 10. REQUESTING PHYSICIAN: Dr. King. REASON FOR CONSULTATION: Septic shock. HISTORY OF PRESENT ILLNESS: The patient is currently intubated and sedated, unable to provide any past medical history, history of present illness or review of systems. Her daughter is here. The patient is a 62-year-old female with history of morbid obesity, hypertension, hyperlipidemia, irritable bowel syndrome who presented with abdominal pain. Her daughter states that she had been fine over the weekend without complications. She was keeping her daughter's dog. Daughter picked up the dog on Friday, mother was fine and went out to [facility], and she did not seem to have any complications, although her mom did have a couple of loose stools, but not complaining of any pain. Apparently on Friday, she states when her mother began to have some discomfort, she then presented to the Emergency Room on the evening of the with complaints of nausea, vomiting and diarrhea. She apparently had some dry heaving and had a temperature up to 101. Daughter states she had some flu-like symptoms several weeks ago. She is uncertain if she took any antibiotics at that time. On arrival, her initial temperature was 98.8, blood pressure 143/73. Since that time, she has developed temperatures as high as 102.5. White blood cell count on arrival was 2. She had 29% bands. Her creatinine was 1.2 on arrival, initial lactic acid was 6.5. She underwent a CT scan of the abdomen and pelvis without contrast that revealed some mild splenomegaly, some hepatic steatosis and no nephrolithiasis or hydronephrosis that was seen. Blood cultures were obtained. She then became more septic appearing, started on Zosyn on . She was evaluated by GI as well as General Surgery. Over the course of the day, she worsened. I was consulted. She had received vancomycin as well as Zosyn. Blood cultures then turned positive for gram-positive cocci and gram-negative rods. I was informed that her urine output was decreasing. I discontinued any further vancomycin and dose to daptomycin x 1. Later in the evening, I was again contacted, was told that her urine output has been decreasing. I made recommendation to discontinue the Zosyn 3.375 and adjusted to 2.25 IV q.6 hours. I also gave an additional dose of levofloxacin IV x 1. Repeat blood cultures are pending. The patient has since been intubated, and she is now maxed out on pressors. PAST MEDICAL HISTORY: Positive for anxiety, arthritis, depression, gastroesophageal reflux disease, hypercholesterolemia, hypertension, back pain, leg pain, seasonal allergies, Morbid obesity. PAST SURGICAL HISTORY: Positive for and tubal ligation. Right knee replacement. ALLERGIES: LISTED TETRACYCLINE AND SULFA, UNCERTAIN WHAT HAPPENS WHEN SHE TAKES THIS. This was discussed with her daughter as well. NICKEL AND LISINOPRIL ARE ALSO MENTIONED. SOCIAL HISTORY: Does have a distant history of smoking in the distant past, but currently she has quit. FAMILY HISTORY: Noncontributory. CURRENT MEDICATIONS: Again, she received daptomycin x 1 on the . Levofloxacin x 1 on the , vancomycin x 1. She is on Zosyn, adjusted now for renal function. She is on Levophed. She is on vasopressin as well as some heparin, pantoprazole and vecuronium. PHYSICAL EXAMINATION: VITAL SIGNS: Most recent temperature is 101.1, pulse 122, respirations 31, blood pressure 70/39. Satting 96% on the ventilator. GENERAL: She is intubated. She is sedated and slightly paralyzed. HEENT: Pupils are reactive. NECK: Supple. LUNGS: Decreased in the bases. She has a right IJ without complications. HEART: Tachycardic S1, S2. ABDOMEN: Obese, soft. Decreased bowel sounds. OG tube in place. GENITOURINARY: Lorenz is in place. EXTREMITIES: Without clubbing, cyanosis. She has 1+ edema. SKIN: Warm without signs of generalized rash. LABORATORY DATA: White count 7.9, hemoglobin 9.6, platelets of 76, neutrophils 60, lymphs are 26. Creatinine is now 2.9. Glucose was 58. AST up to 240, ALT up to 147, alkaline phosphatase 95. Hepatitis screen was negative. MRSA screen negative. Blood cultures 2 of 4 bottles have both gram-positive diplococci in anaerobic bottle and gram-negative rods seen. Second set is negative. Chest x-ray, some cardiomegaly, maybe some mild infiltrates in the left compared to the right, with bilateral left greater than right side. Abdominal ultrasound is pending. IMPRESSION: 1. Septic shock with gram-negative jere, gram-positive cocci, 2 of 4 bottles, questionable gastrointestinal source. 2. Acute kidney injury with decreased urine output. 3. Acute respiratory failure. 4. TETRACYCLINE, SULFA ALLERGY, questionable reaction. 5. Transaminitis. 6. Thrombocytopenia. RECOMMENDATIONS: For now, continue the Zosyn. I adjusted the dose on the secondary to decreased urine output, worsening renal function. She is status post daptomycin, levofloxacin, vancomycin x 1 on the . Awaiting CRRT, discussed with nursing this morning. She has calls being placed, have access placed with CRRT instituted. We will need to adjust antibiotics. We will follow up labs and cultures. Follow up the repeat blood cultures that were acquired, may need additional imaging if stable enough. Abdominal ultrasound report is pending. She is critically ill. I did discuss with her daughter possibility that her mother may not survive that she is very ill. Thank you for allowing me participate in the patient's care. Should you have any questions, please do not hesitate to contact me. SAMIRA GUTIERREZ MD DR: CARMENCITA/jose armando JOB#: [id number] / [id number]
[2018-04-17] MEDS: POTASSIUM CHLORIDE 15 MEQ in DIALYSIS SOLUTION BGK 0/2.5 5,000 ML IV SCH ×8 (09:30→12:51)
--- NOTE | 2018-04-17 09:41 | RAD ---
EXAM: CHEST 1 VIEW History: Dialysis catheter placement COMPARISON: 04/17/2018 TECHNIQUE: Single portable radiograph of the chest FINDINGS: Moderate cardiomegaly. The ET tube is identified in the trachea. The feeding tube is identified below the diaphragm in the stomach. Right-sided internal jugular line is identified. Right-sided internal jugular dialysis catheter identified with the tip projecting at the SVC/RA junction. Moderate prominent appearing bilateral interstitial lung markings likely congestive changes. IMPRESSION: 1. Lines and tubes as described above. 2. Moderate congestive changes unchanged Electronically signed by: Emanuel Arndt MD (04/17/2018 9:38 AM) [place] [id number]
--- NOTE | 2018-04-17 09:58 | RAD ---
Procedure: Temporary hemodialysis catheter placement at the bedside. Clinical Indication: 62-year-old requiring urgent hemodialysis Sedation: Local anesthesia only Antibiotics: None Fluoro Time: Not applicable Contrast: None Sterility: All elements of maximal sterile barrier technique including the use of a cap, mask, sterile gown, sterile gloves, large sterile sheet, appropriate hand hygiene, and 2% chlorhexidine for cutaneous antisepsis (or acceptable alternative antiseptic per current guidelines) were followed for this procedure. Consent: The procedure was explained in its entirety to the patient or the patients designated claim representative by a member of the treatment team, including a discussion of the risks, benefits and commonly accepted alternatives to the procedure, as well as the expected consequences of no therapy whatsoever. Discussion of the risks included, but was not limited to, those that are most frequent and those that are rare but possibly severe or life-threatening, as well as the possibility of unforeseen complications. Technique and Findings: Following informed consent, the patient was prepped and draped in the usual sterile fashion. Ultrasound interrogation of the right neck revealed patency and compressibility of the right internal jugular vein. A 21-gauge micropuncture needle was used to gain access to this vein after 1% Lidocaine was used to achieve local anesthesia. A hardcopy ultrasound image was recorded. The needle was exchanged over a wire for serial dilators followed by a 20 cm trialysis temporary hemodialysis catheter which was deployed in the expected location of the mid right atrium. The catheter flow rates were assessed manually and found to be excellent. The catheter was then flushed, packed with Heparin, capped, and sutured to the skin. Chest x-ray was then obtained to assess line position. Complications: No immediate Impression: 1. Ultrasound guided placement of a temporary hemodialysis catheter which exhibits excellent manual flow rates as described.
--- NOTE | 2018-04-17 09:59 | PDOC2 ---
CONSULT Date of Consult Date of Consult DATE: 04/17/18 TIME: 09:15 Reason for Consult Reason for Consult: CLARITA , Hypotensive, sepsis Identification/Chief Complaint Chief Complaint Unable to Obtain- Pt on vent Source Source: Chart review History of Present Illness Reason for Visit: Pt is a 62-year-old morbidly obese CF with a BMI of 41. She came to the hospital, complaining of nausea, vomiting and right upper quadrant abdominal pain. She also had a fever up to 101.She underwent CT abdomen and pelvis- show mild splenomegaly, hepatic steatosis and no nephrolithiasis or hydronephrosis. She was evaluated by GI as well as General Surgery. Over the course of the day , she worsened, intubated, on vent. I was paged several times last night by RN for hypotension and Low bicarb. Pt is on 4 pressors now, continues to be hypotensive Recd IV Bicarb bolus and on IV Bicarb drip. She has received 10 liters of IV fluids. Her creatinine on admission was 1.4 Past Medical History Cardiovascular: HTN, Hyperlipidemia Pulmonary: Asthma GI: GERD, Irritable bowel disease Heme/Onc: No pertinent hx Hepatobiliary: No pertinent hx Psych: Anxiety, Addictions, Depression Musculoskeletal: low back pain, Osteoarthritis Rheumatologic: No pertinent hx Infectious disease: No pertinent hx Renal/: Other Endocrine: No pertinent hx Past Surgical History Past Surgical History: , Total knee replacement, Other Family History Family History: Cancer, Chronic Bronchitis, Coronary Artery Disease, Diabetes Social History Quit ALCOHOL: rare Drugs: Other (cocaine and marijuana in the past) Current Problem List Problem List Problems Medical Problems: (1) Abdominal pain Status: Acute (2) Bandemia Status: Acute (3) Hyperbilirubinemia Status: Acute (4) Hypokalemia Status: Acute (5) Hypomagnesemia Status: Acute (6) Lactic acidosis Status: Acute (7) Septic shock Status: Acute Current Medications Current Medications Current Medications Ondansetron HCl (Zofran) 4 mg 1X ONCE IM ; Start 04/15/18 at 20:45; Stop at 20:51; Status DC Ondansetron HCl (Zofran) 4 mg 1X ONCE IV Last administered on 04/15/18at 21:24 ; Start 04/15/18 at 21:00; Stop 04/15/18 at 21:01; Status DC Famotidine (Pepcid Vial) 20 mg 1X ONCE IVP Last administered on 04/15/18at 21: 23; Start 04/15/18 at 21:15; Stop 04/15/18 at 21:16; Status DC Hyoscyamine (Anaspaz) 0.125 mg 1X ONCE PO Last administered on 04/15/18at 21:23 ; Start 04/15/18 at 21:15; Stop 04/15/18 at 21:16; Status DC Lorazepam (Ativan) 0.5 mg 1X ONCE IV Last administered on 04/15/18at 21:21; Start 04/15/18 at 21:15; Stop 04/15/18 at 21:16; Status DC Sodium Chloride 1,000 ml @ 1,000 mls/hr 1X ONCE IV Last administered on at 21:22; Start 04/15/18 at 21:15; Stop 04/15/18 at 22:14; Status DC Fentanyl Citrate (Fentanyl 2ml Vial) 50 mcg 1X ONCE IV Last administered on at 22:13; Start 04/15/18 at 22:00; Stop 04/15/18 at 22:01; Status DC Magnesium Sulfate 50 ml @ 25 mls/hr 1X ONCE IV Last administered on 04/15/18at 23:37; Start 04/15/18 at 22:15; Stop 04/16/18 at 00:14; Status DC Piperacillin Sod/ Tazobactam Sod 3.375 gm/Sodium Chloride 50 ml @ 100 mls/hr 1X ONCE IV Last administered on 04/16/18at 01:23; Start 04/15/18 at 23:00; Stop 04/16/18 at 19:50; Status DC Sodium Chloride 1,000 ml @ 1,000 mls/hr 1X ONCE IV Last administered on at 01:15; Start 04/15/18 at 23:00; Stop 04/15/18 at 23:59; Status DC Sodium Chloride 1,000 ml @ 1,000 mls/hr 1X ONCE IV Last administered on at 01:19; Start 04/16/18 at 00:00; Stop 04/16/18 at 00:59; Status DC Sodium Chloride 500 ml @ 500 mls/hr 1X ONCE IV ; Start 04/16/18 at 01:00; Stop 04/16/18 at 01:59; Status DC Fentanyl Citrate (Fentanyl 2ml Vial) 50 mcg 1X ONCE IV Last administered on at 23:38; Start 04/15/18 at 23:00; Stop 04/15/18 at 23:01; Status DC Ondansetron HCl (Zofran) 4 mg PRN Q8HRS PRN IV NAUSEA/VOMITING Last administered on 04/16/18at 13:20; Start 04/16/18 at 00:00; Stop 04/16/18 at 23:59 ; Status DC Fentanyl Citrate (Fentanyl 2ml Vial) 50 mcg PRN Q2HR PRN IV PAIN Last administered on 04/16/18 02:39; Start 04/16/18 at 00:00; Stop 04/16/18 at 02:57 ; Status DC Potassium Chloride/Water 100 ml @ 100 mls/hr Q1H IV Last administered on at 04:51; Start 04/16/18 at 00:00; Stop 04/16/18 at 03:59; Status DC Morphine Sulfate (Morphine Sulfate) 4 mg 1X ONCE IV Last administered on at 01:15; Start 04/16/18 at 00:45; Stop 04/16/18 at 00:46; Status DC Ondansetron HCl (Zofran) 4 mg 1X ONCE IV Last administered on 04/16/18at 01:27 ; Start 04/16/18 at 00:45; Stop 04/16/18 at 00:46; Status DC Morphine Sulfate (Morphine Sulfate) 4 mg 1X ONCE IV Last administered on at 01:41; Start 04/16/18 at 01:45; Stop 04/16/18 at 01:46; Status DC Morphine Sulfate (Morphine Sulfate) 4 mg PRN Q3HRS PRN IV PAIN Last administered on 04/16/18 15:37; Start 04/16/18 at 03:00 Ringer's Solution 1,000 ml @ 125 mls/hr Q8H IV Last administered on 04/16/18at 10:28; Start 04/16/18 at 03:00; Stop 04/16/18 at 21:06; Status DC Piperacillin Sod/ Tazobactam Sod 3.375 gm/Sodium Chloride 50 ml @ 100 mls/hr Q6HRS IV Last administered on 04/16/18at 18:10; Start 04/16/18 at 06:00; Stop at 20:02; Status DC Ringer's Solution 1,000 ml @ 999 mls/hr Q1H1M IV Last administered on at 10:23; Start 04/16/18 at 09:30; Stop 04/16/18 at 11:30; Status DC Pantoprazole Sodium (PROTONIX VIAL for IV PUSH) 40 mg DAILYAC IVP Last administered on 04/16/18at 10:28; Start 04/16/18 at 11:30 Norepinephrine Bitartrate 250 ml @ 1.875 mls/ hr CONT PRN IV SEE I/O RECORD Last administered on 04/17/18at 07:10; Start 04/16/18 at 12:00 Vancomycin HCl (Vanco Per Pharmacy) 1 each PRN DAILY PRN MC SEE COMMENTS; Start 04/16/18 at 13:30; Stop 04/16/18 at 14:48; Status DC Vancomycin HCl 2 gm/Sodium Chloride 500 ml @ 250 mls/hr 1X ONCE IV Last administered on 04/16/18at 13:31; Start 04/16/18 at 13:30; Stop 04/16/18 at 14:47 ; Status DC Vasopressin 40 unit/Dextrose 102 ml @ 6 mls/hr CONT PRN IV SEE I/O RECORD Last administered on 04/17/18at 04:31; Start 04/16/18 at 13:45 Lorazepam (Ativan) 0.5 mg PRN Q6HRS PRN PO ANXIETY / AGITATION 1st Choice; Start 04/16/18 at 14:00; Status Cancel Lorazepam (Ativan) 1 mg PRN Q6HRS PRN PO ANXIETY / AGITATION 2ND CHOICE; Start 04/16/18 at 14:00; Status Cancel Lorazepam (Ativan) 2 mg STK-MED ONCE .ROUTE ; Start 04/16/18 at 13:52; Stop at 13:53; Status DC Lorazepam (Ativan) 1 mg PRN Q6HRS PRN IV ANXIETY / AGITATION Last administered on 04/16/18at 14:36; Start 04/16/18 at 14:15 Lorazepam (Ativan) 0.5 mg PRN Q6HRS PRN IV ANXIETY / AGITATION; Start 04/16/18 at 14:15; Stop 04/16/18 at 22:32; Status DC Vancomycin HCl (Vancomycin Random Level) 1 each 1X ONCE MC ; Start 04/17/18 at 05:00; Stop 04/17/18 at 05:00; Status DC Daptomycin 680 mg/ Sodium Chloride 50 ml @ 100 mls/hr ONCE ONCE IV Last administered on 04/16/18at 17:09; Start 04/16/18 at 15:00; Stop 04/16/18 at 15:29 ; Status DC Furosemide (Lasix) 80 mg 1X ONCE IVP Last administered on 04/16/18at 18:05; Start 04/16/18 at 15:45; Stop 04/16/18 at 15:46; Status DC Sodium Chloride 500 ml @ 500 mls/hr PRN Q1HR PRN IV low bp Last administered on 04/17/18at 05:55; Start 04/16/18 at 15:45 Succinylcholine Chloride (Anectine) 100 mg 1X ONCE IV Last administered on at 16:15; Start 04/16/18 at 16:15; Stop 04/16/18 at 16:25; Status DC Succinylcholine Chloride (Anectine) 200 mg STK-MED ONCE .ROUTE ; Start 04/16/18 at 16:08; Stop 04/16/18 at 16:09; Status DC Fentanyl Citrate 30 ml @ 0 mls/hr CONT PRN IV SEE PROTOCOL Last administered on 04/17/18at 00:13; Start 04/16/18 at 16:15 Chlorhexidine Gluconate (Peridex) 15 ml BID MM Last administered on 04/16/18at 21:13; Start 04/16/18 at 21:00 Midazolam HCl 100 ml @ 0 mls/hr CONT PRN IV SEE PROTOCOL Last administered on at 07:11; Start 04/16/18 at 16:15 Etomidate (Amidate) 20 mg STK-MED ONCE IV ; Start 04/16/18 at 16:18; Stop at 16:19; Status DC Fentanyl Citrate (Fentanyl 2ml Vial) 100 mcg STK-MED ONCE .ROUTE ; Start at 16:22; Stop 04/16/18 at 16:23; Status DC Midazolam HCl (Versed) 5 mg STK-MED ONCE .ROUTE ; Start 04/16/18 at 16:24; Stop 04/16/18 at 16:25; Status DC Vecuronium [place] (Norcuron Bolus) 10 mg STK-MED ONCE IV ; Start 04/16/18 at 16 :26; Stop 04/16/18 at 16:27; Status DC Sodium Bicarbonate (Sodium Bicarb Adult 8.4% Syr) 100 meq 1X ONCE IV Last administered on 04/16/18at 18:02; Start 04/16/18 at 17:30; Stop 04/16/18 at 17:39 ; Status DC Acetaminophen (Tylenol Supp) 650 mg PRN Q6HRS PRN OR MILD PAIN / TEMP Last administered on 04/16/18at 21:07; Start 04/16/18 at 19:45 Piperacillin Sod/ Tazobactam Sod 2.25 gm/Sodium Chloride 50 ml @ 100 mls/hr Q6HRS IV Last administered on 04/17/18at 05:29; Start 04/17/18 at 00:00 Levofloxacin/ Dextrose 150 ml @ 100 mls/hr 1X ONCE IV Last administered on at 20:51; Start 04/16/18 at 20:30; Stop 04/16/18 at 21:59; Status DC Sodium Bicarbonate (Sodium Bicarb Adult 8.4% Syr) 100 meq 1X ONCE IV Last administered on 04/16/18at 20:39; Start 04/16/18 at 20:30; Stop 04/16/18 at 20:31 ; Status DC Heparin Sodium (Porcine) (Heparin Sodium) 5,000 unit Q8HRS SQ Last administered on 04/17/18at 05:33; Start 04/16/18 at 22:00 Sodium Bicarbonate 150 meq/Dextrose 1,150 ml @ 125 mls/hr Q9H12M IV Last administered on 04/16/18at 21:50; Start 04/16/18 at 21:30 Dopamine HCl/ Dextrose 250 ml @ 8.471 mls/ hr CONT PRN IV SEE I/O RECORD Last administered on 04/17/18at 04:27; Start 04/16/18 at 20:45 Lorazepam (Ativan) 2 mg PRN Q6HRS PRN IV ANXIETY / AGITATION Last administered on 04/16/18at 22:44; Start 04/16/18 at 22:45 Vecuronium [place] (Norcuron Bolus) 6 mg PRN Q4HRS PRN IV SEDATION Last administered on 04/17/18at 04:26; Start 04/16/18 at 22:30 Multi-Ingred Cream/Lotion/Oil/ Oint (Artificial Tears Eye Ointment) 1 caity PRN Q1HR PRN OU DRY EYE Last administered on 04/17/18at 00:13; Start 04/17/18 at 00: 00 Lidocaine/Sodium Bicarbonate (Buffered Lidocaine 1%) 3 ml STK-MED ONCE .ROUTE ; Start 04/17/18 at 07:19; Stop 04/17/18 at 07:20; Status DC Heparin Sodium (Porcine) (Heparin Sodium) 10,000 unit STK-MED ONCE .ROUTE ; Start 04/17/18 at 07:19; Stop 04/17/18 at 07:20; Status DC Lidocaine/Sodium Bicarbonate (Buffered Lidocaine 1%) 4 ml 1X ONCE INJ Last administered on 04/17/18at 08:48; Start 04/17/18 at 08:00; Stop 04/17/18 at 08:02 ; Status DC Heparin Sodium (Porcine) (Heparin Sodium) 2,500 unit 1X ONCE INT CAT Last administered on 04/17/18at 08:48; Start 04/17/18 at 08:00; Stop 04/17/18 at 08:02 ; Status DC Epinephrine HCl 4 mg/Sodium Chloride 254 ml @ 43.2 mls/hr CONT PRN IV SEE I/O RECORD Last administered on 04/17/18at 08:27; Start 04/17/18 at 08:15 Magnesium Sulfate 50 ml @ 25 mls/hr 1X ONCE IV ; Start 04/17/18 at 09:00; Stop 04/17/18 at 10:59 Dextrose (Dextrose 50%-Water Syringe) 25 gm STK-MED ONCE IV ; Start 04/17/18 at 08:13; Stop 04/17/18 at 08:14; Status DC Active Scripts Active Promethazine Hcl 25 Mg Tablet 1 Tab PO PRN Q6HRS PRN Reported Losartan-Hctz 100-25 Mg Tab (Losartan/Hydrochlorothiazide) 1 Each Tablet 1 Tab PO DAILY Famotidine 20 Mg Tablet 20 Mg PO BID Robaxin (Methocarbamol) 500 Mg Tablet 1 Tab PO TID PRN Aspirin Ec (Aspirin) 325 Mg Tablet.dr 1 Tab PO BID Albuterol Sulfate Conc Neb Soln (Albuterol Sulfate) 2.5 Mg/0.5 Ml Vial.neb 1 Vial NEB PRN Q6HRS PRN Multivitamins (Multivitamin) 1 Each Tablet 1 Tab PO DAILY Carafate (Sucralfate) 1 Gm Tablet 1 Tab PO QIDACHS Potassium Chloride 10 Meq Tab.sr.24h 10 Meq PO DAILY Amlodipine Besylate 5 Mg Tablet 5 Mg PO HS Percocet 5-325 Mg Tablet (Oxycodone/Acetaminophen) 1 Each Tablet 1 Tab PO TID PRN Alprazolam 1 Mg Tablet 1 Tab PO TID PRN Proair Hfa Inhaler (Albuterol Sulfate) 8.5 Gm Hfa.aer.ad 1 Puff INH PRN Q6HRS PRN Benadryl Allergy (Diphenhydramine Hcl) 25 Mg Tablet 50 Mg PO BID Lovastatin 20 Mg Tablet 20 Mg PO HS Bupropion Hcl 75 Mg Tablet 150 Mg PO DAILY Citalopram Hbr (Citalopram Hydrobromide) 40 Mg Tablet 1 Tab PO DAILY Montelukast Sodium Tablet (Montelukast Sodium) 10 Mg Tablet 10 Mg PO HS Pantoprazole Sodium 40 Mg Tablet.dr 1 Tab PO DAILY Mirtazapine 30 Mg Tablet 1 Tab PO QHS Atenolol 50 Mg Tablet 1 Tab PO BID Allergies Allergies: Coded Allergies: lisinopril (Verified Allergy, Intermediate, Itching, 07/08/17) coughing nickel (Verified Allergy, Intermediate, Rash, 07/08/17) sulfacetamide (Verified Allergy, Intermediate, ITCHING, BURNING, 07/08/17) tetracycline (Verified Allergy, Intermediate, rash, itching, 04/16/18) ROS Review of System Unable to obtain, Pt on vent Physical Exam Physical Exam GENERAL: intubated, sedated HEENT: Pupils are reactive, intubated . NECK: Supple. LUNGS: Ant CTA bilaterally HEART: Tachycardic S1, S2. ABDOMEN: Obese, soft, OG tube in place. GENITOURINARY: Lorenz + EXTREMITIES: 1+ edema. SKIN: No rash Neuro- sedated, on vent Vital Signs Vital Signs Date Time Temp Pulse Resp B/P (MAP) Pulse Ox O2 Delivery O2 Flow Rate FiO2 04/17/18 09:09 97 Ventilator 04/17/18 06:30 120 28 84/69 (74) 04/17/18 01:15 101.0 101.0 04/16/18 17:00 4.0 Assessment & Plan CLARITA - sepsis/ATN Hypotensive 4 Pressors , Oliguric CRRT if tolerates, severe hypotension Acidosis- Recd IV NaHco3 bolus last night On IV Bicarb infusion Hypernatremia- Mild Septic shock secondary to most likely abdominal pathology Unclear given the negative results off her CT scan and ultrasound Lactic acid going up, Gram Positive cocci and Gram negative rods + Acute hypoxemic respiratory failure on mechanical ventilation Pulm edema on CxR Transaminitis secondary to sepsis most likely but also could be underlying steatohepatitis given patient's BMI Hypomagnesemia- replace as per protocol Hypokalemia- Replace as per protocol Labs as per CRRt Protocol Discussed with family at bedside and RN Critically ill Labs Labs Laboratory Tests Test 04/15/18 20:30 04/16/18 01:20 04/16/18 02:10 04/16/18 06:15 White Blood Count 2.0 x10^3/uL (4.0-11.0) 10.1 x10^3/uL (4.0-11.0) Red Blood Count 4.86 x10^6/uL (3.50-5.40) 4.22 x10^6/uL (3.50-5.40) Hemoglobin 13.0 g/dL (12.0-15.5) 11.4 g/dL (12.0-15.5) Hematocrit 39.1 % (36.0-47.0) 35.4 % (36.0-47.0) Mean Corpuscular Volume 81 fL (79-100) 84 fL (79-100) Mean Corpuscular Hemoglobin 27 pg (25-35) 27 pg (25-35) Mean Corpuscular Hemoglobin Concent 33 g/dL (31-37) 32 g/dL (31-37) Red Cell Distribution Width 15.1 % (11.5-14.5) 15.8 % (11.5-14.5) Platelet Count 140 x10^3/uL (140-400) 141 x10^3/uL (140-400) Neutrophils (%) (Auto) 84 % (31-73) Lymphocytes (%) (Auto) 13 % (24-48) Monocytes (%) (Auto) 1 % (0-9) Eosinophils (%) (Auto) 1 % (0-3) Basophils (%) (Auto) 0 % (0-3) Neutrophils # (Auto) 1.7 x10^3uL (1.8-7.7) Lymphocytes # (Auto) 0.3 x10^3/uL (1.0-4.8) Monocytes # (Auto) 0.0 x10^3/uL (0.0-1.1) Eosinophils # (Auto) 0.0 x10^3/uL (0.0-0.7) Basophils # (Auto) 0.0 x10^3/uL (0.0-0.2) Segmented Neutrophils % 55 % (35-66) Band Neutrophils % 29 % (0-9) Lymphocytes % 13 % (24-48) Eosinophils % 2 % (0-5) Metamyelocytes % 1 % (0-0) Toxic Vacuolation Mod Platelet Estimate Adequate (ADEQUATE) Prothrombin Time 13.9 SEC (11.7-14.0) Prothromb Time International Ratio 1.1 (0.8-1.1) Activated Partial Thromboplast Time 27 SEC (24-38) Sodium Level 143 mmol/L (136-145) 146 mmol/L (136-145) Potassium Level 3.1 mmol/L (3.5-5.1) 3.9 mmol/L (3.5-5.1) Chloride Level 102 mmol/L (98-107) 108 mmol/L (98-107) Carbon Dioxide Level 27 mmol/L (21-32) 23 mmol/L (21-32) Anion Gap 14 (6-14) 15 (6-14) Blood Urea Nitrogen 11 mg/dL (7-20) 14 mg/dL (7-20) Creatinine 1.2 mg/dL (0.6-1.0) 1.4 mg/dL (0.6-1.0) Estimated GFR (Cockcroft-Gault) 45.5 38.1 BUN/Creatinine Ratio 9 (6-20) 10 (6-20) Glucose Level 93 mg/dL (70-99) 83 mg/dL (70-99) Lactic Acid Level 6.2 mmol/L (0.4-2.0) 6.5 mmol/L (0.4-2.0) 5.9 mmol/L (0.4-2.0) Calcium Level 9.4 mg/dL (8.5-10.1) 8.0 mg/dL (8.5-10.1) Magnesium Level 1.2 mg/dL (1.8-2.4) 1.6 mg/dL (1.8-2.4) Total Bilirubin 3.6 mg/dL (0.2-1.0) 3.5 mg/dL (0.2-1.0) Aspartate Amino Transf (AST/SGOT) 211 U/L (15-37) 136 U/L (15-37) Alanine Aminotransferase (ALT/SGPT) 155 U/L (14-59) 119 U/L (14-59) Alkaline Phosphatase 74 U/L (46-116) 53 U/L (46-116) Creatine Kinase 118 U/L (26-192) Creatine Kinase MB (Mass) < 0.5 ng/mL (0.0-3.6) Creatine Kinase MB Relative Index % (0-4) Troponin I Quantitative < 0.017 ng/mL (0.000-0.055) 0.027 ng/mL (0.000-0.055) 0.027 ng/mL (0.000-0.055) Total Protein 7.3 g/dL (6.4-8.2) 5.5 g/dL (6.4-8.2) Albumin 3.6 g/dL (3.4-5.0) 2.7 g/dL (3.4-5.0) Albumin/Globulin Ratio 1.0 (1.0-1.7) 1.0 (1.0-1.7) Lipase 72 U/L (73-393) Nasal Screen MRSA (PCR) Negative (Negative) Reticulocyte Count (auto) 1.9 % (0.5-2.5) Iron Level 9 ug/dL (50-170) Total Iron Binding Capacity 372 ug/dL (250-450) Iron Saturation 2 % (15-34) Vitamin B12 Level 616 pg/mL (247-911) Hepatitis A IgM Antibody Nonreactive (Nonreactive) Hepatitis B Surface Antigen Nonreactive (Nonreactive) Hepatitis B Core IgM Antibody Nonreactive (Nonreactive) Hepatitis C IgG Antibody Nonreactive (Nonreactive) Test 04/16/18 09:00 04/16/18 11:43 04/16/18 13:17 04/16/18 13:25 Urine Collection Type Unknown Urine Color [place] Urine Clarity Clear Urine pH 5.5 Urine Specific [place] 1.025 Urine Protein 30 mg/dL (NEG-TRACE) Urine Glucose (UA) Negative mg/dL (NEG) Urine Ketones (Stick) 15 mg/dL (NEG) Urine Blood Negative (NEG) Urine Nitrite Positive (NEG) Urine Bilirubin Large (NEG) Urine Urobilinogen Dipstick 1.0 mg/dL (0.2 mg/dL) Urine Leukocyte Esterase Small (NEG) Urine RBC Occ /HPF (0-2) Urine WBC 11-20 /HPF (0-4) Urine Squamous Epithelial Cells Many /LPF Urine Renal Epithelial Cells Few /LPF Urine Bacteria Many /HPF (0-FEW) Urine Mucus Mod /LPF Urine Opiates Screen Pos (NEG) Urine Methadone Screen Neg (NEG) Urine Barbiturates Neg (NEG) Urine Phencyclidine Screen Neg (NEG) Urine Amphetamine/Methamphetamine Neg (NEG) Urine Benzodiazepines Screen Pos (NEG) Urine Cocaine Screen Neg (NEG) Urine Cannabinoids Screen Pos (NEG) Urine Ethyl Alcohol Neg (NEG) O2 Saturation 87 % (92-99) 91 % (92-99) Arterial Blood pH 7.26 (7.35-7.45) 7.17 (7.35-7.45) Arterial Blood pCO2 at Patient Temp 51 mmHg (35-46) 45 mmHg (35-46) Arterial Blood pO2 at Patient Temp 58 mmHg (65-108) 73 mmHg (65-108) Arterial Blood HCO3 22 mmol/L (21-28) 16 mmol/L (21-28) Arterial Blood Base Excess -5 mmol/L (-3-3) -12 mmol/L (-3-3) FiO2 36 50 Sodium Level 144 mmol/L (136-145) Potassium Level 4.7 mmol/L (3.5-5.1) Chloride Level 107 mmol/L (98-107) Carbon Dioxide Level 24 mmol/L (21-32) Anion Gap 13 (6-14) Blood Urea Nitrogen 18 mg/dL (7-20) Creatinine 1.9 mg/dL (0.6-1.0) Estimated GFR (Cockcroft-Gault) 26.8 Glucose Level 68 mg/dL (70-99) Lactic Acid Level 5.1 mmol/L (0.4-2.0) Calcium Level 7.8 mg/dL (8.5-10.1) Test 04/16/18 20:00 04/17/18 01:09 04/17/18 04:00 04/17/18 07:48 O2 Saturation 90 % (92-99) 90 % (92-99) Arterial Blood pH 7.21 (7.35-7.45) 7.20 (7.35-7.45) Arterial Blood pCO2 at Patient Temp 42 mmHg (35-46) 45 mmHg (35-46) Arterial Blood pO2 at Patient Temp 69 mmHg (65-108) 67 mmHg (65-108) Arterial Blood HCO3 16 mmol/L (21-28) 17 mmol/L (21-28) Arterial Blood Base Excess -11 mmol/L (-3-3) -11 mmol/L (-3-3) FiO2 60 90 Arterial Blood pH (Temp corrected) 7.18 Arterial Blood pCO2 (Temp correct) 48 mmHg Arterial Blood pO2 (Temp corrected) 73 mmHg White Blood Count 7.9 x10^3/uL (4.0-11.0) Red Blood Count 3.64 x10^6/uL (3.50-5.40) Hemoglobin 9.6 g/dL (12.0-15.5) Hematocrit 31.1 % (36.0-47.0) Mean Corpuscular Volume 85 fL (79-100) Mean Corpuscular Hemoglobin 26 pg (25-35) Mean Corpuscular Hemoglobin Concent 31 g/dL (31-37) Red Cell Distribution Width 16.7 % (11.5-14.5) Platelet Count 76 x10^3/uL (140-400) Neutrophils (%) (Auto) 60 % (31-73) Lymphocytes (%) (Auto) 26 % (24-48) Monocytes (%) (Auto) 13 % (0-9) Eosinophils (%) (Auto) 1 % (0-3) Basophils (%) (Auto) 0 % (0-3) Neutrophils # (Auto) 4.7 x10^3uL (1.8-7.7) Lymphocytes # (Auto) 2.1 x10^3/uL (1.0-4.8) Monocytes # (Auto) 1.0 x10^3/uL (0.0-1.1) Eosinophils # (Auto) 0.1 x10^3/uL (0.0-0.7) Basophils # (Auto) 0.0 x10^3/uL (0.0-0.2) Prothrombin Time 21.5 SEC (11.7-14.0) Prothromb Time International Ratio 1.9 (0.8-1.1) Sodium Level 147 mmol/L (136-145) Potassium Level 3.5 mmol/L (3.5-5.1) Chloride Level 105 mmol/L (98-107) Carbon Dioxide Level 21 mmol/L (21-32) Anion Gap 21 (6-14) Blood Urea Nitrogen 24 mg/dL (7-20) Creatinine 2.9 mg/dL (0.6-1.0) Estimated GFR (Cockcroft-Gault) 16.4 BUN/Creatinine Ratio 8 (6-20) Glucose Level 58 mg/dL (70-99) Calcium Level 7.2 mg/dL (8.5-10.1) Magnesium Level 1.5 mg/dL (1.8-2.4) Total Bilirubin 3.8 mg/dL (0.2-1.0) Aspartate Amino Transf (AST/SGOT) 240 U/L (15-37) Alanine Aminotransferase (ALT/SGPT) 147 U/L (14-59) Alkaline Phosphatase 95 U/L (46-116) Total Protein 4.9 g/dL (6.4-8.2) Albumin 2.0 g/dL (3.4-5.0) Albumin/Globulin Ratio 0.7 (1.0-1.7) Lactic Acid Level 10.2 mmol/L (0.4-2.0) Test 04/17/18 08:00 O2 Saturation 93 % (92-99) Arterial Blood pH 7.17 (7.35-7.45) Arterial Blood pH (Temp corrected) 7.16 Arterial Blood pCO2 at Patient Temp 47 mmHg (35-46) Arterial Blood pCO2 (Temp correct) 47 mmHg Arterial Blood pO2 at Patient Temp 74 mmHg (65-108) Arterial Blood pO2 (Temp corrected) 76 mmHg Arterial Blood HCO3 17 mmol/L (21-28) Arterial Blood Base Excess -12 mmol/L (-3-3) FiO2 100 Laboratory Tests Test 04/16/18 11:43 04/16/18 13:17 04/16/18 13:25 04/16/18 20:00 O2 Saturation 87 % (92-99) 91 % (92-99) 90 % (92-99) Arterial Blood pH 7.26 (7.35-7.45) 7.17 (7.35-7.45) 7.21 (7.35-7.45) Arterial Blood pCO2 at Patient Temp 51 mmHg (35-46) 45 mmHg (35-46) 42 mmHg (35-46) Arterial Blood pO2 at Patient Temp 58 mmHg (65-108) 73 mmHg (65-108) 69 mmHg (65-108) Arterial Blood HCO3 22 mmol/L (21-28) 16 mmol/L (21-28) 16 mmol/L (21-28) Arterial Blood Base Excess -5 mmol/L (-3-3) -12 mmol/L (-3-3) -11 mmol/L (-3-3) FiO2 36 50 60 Sodium Level 144 mmol/L (136-145) Potassium Level 4.7 mmol/L (3.5-5.1) Chloride Level 107 mmol/L (98-107) Carbon Dioxide Level 24 mmol/L (21-32) Anion Gap 13 (6-14) Blood Urea Nitrogen 18 mg/dL (7-20) Creatinine 1.9 mg/dL (0.6-1.0) Estimated GFR (Cockcroft-Gault) 26.8 Glucose Level 68 mg/dL (70-99) Lactic Acid Level 5.1 mmol/L (0.4-2.0) Calcium Level 7.8 mg/dL (8.5-10.1) Test 04/17/18 01:09 04/17/18 04:00 04/17/18 07:48 04/17/18 08:00 O2 Saturation 90 % (92-99) 93 % (92-99) Arterial Blood pH 7.20 (7.35-7.45) 7.17 (7.35-7.45) Arterial Blood pH (Temp corrected) 7.18 7.16 Arterial Blood pCO2 at Patient Temp 45 mmHg (35-46) 47 mmHg (35-46) Arterial Blood pCO2 (Temp correct) 48 mmHg 47 mmHg Arterial Blood pO2 at Patient Temp 67 mmHg (65-108) 74 mmHg (65-108) Arterial Blood pO2 (Temp corrected) 73 mmHg 76 mmHg Arterial Blood HCO3 17 mmol/L (21-28) 17 mmol/L (21-28) Arterial Blood Base Excess -11 mmol/L (-3-3) -12 mmol/L (-3-3) FiO2 90 100 White Blood Count 7.9 x10^3/uL (4.0-11.0) Red Blood Count 3.64 x10^6/uL (3.50-5.40) Hemoglobin 9.6 g/dL (12.0-15.5) Hematocrit 31.1 % (36.0-47.0) Mean Corpuscular Volume 85 fL (79-100) Mean Corpuscular Hemoglobin 26 pg (25-35) Mean Corpuscular Hemoglobin Concent 31 g/dL (31-37) Red Cell Distribution Width 16.7 % (11.5-14.5) Platelet Count 76 x10^3/uL (140-400) Neutrophils (%) (Auto) 60 % (31-73) Lymphocytes (%) (Auto) 26 % (24-48) Monocytes (%) (Auto) 13 % (0-9) Eosinophils (%) (Auto) 1 % (0-3) Basophils (%) (Auto) 0 % (0-3) Neutrophils # (Auto) 4.7 x10^3uL (1.8-7.7) Lymphocytes # (Auto) 2.1 x10^3/uL (1.0-4.8) Monocytes # (Auto) 1.0 x10^3/uL (0.0-1.1) Eosinophils # (Auto) 0.1 x10^3/uL (0.0-0.7) Basophils # (Auto) 0.0 x10^3/uL (0.0-0.2) Prothrombin Time 21.5 SEC (11.7-14.0) Prothromb Time International Ratio 1.9 (0.8-1.1) Sodium Level 147 mmol/L (136-145) Potassium Level 3.5 mmol/L (3.5-5.1) Chloride Level 105 mmol/L (98-107) Carbon Dioxide Level 21 mmol/L (21-32) Anion Gap 21 (6-14) Blood Urea Nitrogen 24 mg/dL (7-20) Creatinine 2.9 mg/dL (0.6-1.0) Estimated GFR (Cockcroft-Gault) 16.4 BUN/Creatinine Ratio 8 (6-20) Glucose Level 58 mg/dL (70-99) Calcium Level 7.2 mg/dL (8.5-10.1) Magnesium Level 1.5 mg/dL (1.8-2.4) Total Bilirubin 3.8 mg/dL (0.2-1.0) Aspartate Amino Transf (AST/SGOT) 240 U/L (15-37) Alanine Aminotransferase (ALT/SGPT) 147 U/L (14-59) Alkaline Phosphatase 95 U/L (46-116) Total Protein 4.9 g/dL (6.4-8.2) Albumin 2.0 g/dL (3.4-5.0) Albumin/Globulin Ratio 0.7 (1.0-1.7) Lactic Acid Level 10.2 mmol/L (0.4-2.0) Review All relevant outside records, renal labs, imaging studies, telemetry/EKG's were reviewed. Images Images Cxr- Comparison is made to yesterday's study. The tip of the ET tube lies several centimeters above the carmen. An NG tube extends into the stomach. A right jugular central venous catheter extends to the level the atrial caval junction. The heart is enlarged. Moderate bilateral pulmonary infiltrates have developed with loss of vascular margination. The hemidiaphragms are obscured. There may be pleural fluid contributing to the basilar opacities. IMPRESSION: 1. Satisfactory tube positions. 2. Moderate bilateral pulmonary infiltrates have developed most compatible with pulmonary edema CT scan abd- 1. Mild splenomegaly, nonspecific. 2. Hepatic steatosis. 3. No nephrolithiasis or hydronephrosis. US abd- .1. Status post cholecystectomy. 2. Mild enlargement of the common hepatic duct. 3. Hepatomegaly with hepatic steatosis. LJ VILLALBA MD Apr 17, 2018 09:59
--- NOTE | 2018-04-17 10:06 | PDOC ---
Objective: Objective: Reviewed w/ RN - on 4 pressors but barely maintaining BP, had dialysis cath placed, to check bladder pressure. Reviewed surgery note - prohibitive surgical candidate. Vital Signs: Vital Signs Date Time Temp Pulse Resp B/P (MAP) Pulse Ox O2 Delivery O2 Flow Rate FiO2 04/17/18 09:09 97 Ventilator 04/17/18 06:30 120 28 84/69 (74) 04/17/18 01:15 101.0 101.0 04/16/18 17:00 4.0 Labs: Laboratory Tests Test 04/16/18 11:43 04/16/18 13:17 04/16/18 13:25 04/16/18 20:00 O2 Saturation 87 % 91 % 90 % Arterial Blood pH 7.26 7.17 7.21 Arterial Blood pCO2 at Patient Temp 51 mmHg 45 mmHg 42 mmHg Arterial Blood pO2 at Patient Temp 58 mmHg 73 mmHg 69 mmHg Arterial Blood HCO3 22 mmol/L 16 mmol/L 16 mmol/L Arterial Blood Base Excess -5 mmol/L -12 mmol/L -11 mmol/L FiO2 36 50 60 Sodium Level 144 mmol/L Potassium Level 4.7 mmol/L Chloride Level 107 mmol/L Carbon Dioxide Level 24 mmol/L Anion Gap 13 Blood Urea Nitrogen 18 mg/dL Creatinine 1.9 mg/dL Estimated GFR (Cockcroft-Gault) 26.8 Glucose Level 68 mg/dL Lactic Acid Level 5.1 mmol/L Calcium Level 7.8 mg/dL Test 04/17/18 01:09 04/17/18 04:00 04/17/18 07:48 04/17/18 08:00 O2 Saturation 90 % 93 % Arterial Blood pH 7.20 7.17 Arterial Blood pH (Temp corrected) 7.18 7.16 Arterial Blood pCO2 at Patient Temp 45 mmHg 47 mmHg Arterial Blood pCO2 (Temp correct) 48 mmHg 47 mmHg Arterial Blood pO2 at Patient Temp 67 mmHg 74 mmHg Arterial Blood pO2 (Temp corrected) 73 mmHg 76 mmHg Arterial Blood HCO3 17 mmol/L 17 mmol/L Arterial Blood Base Excess -11 mmol/L -12 mmol/L FiO2 90 100 White Blood Count 7.9 x10^3/uL Red Blood Count 3.64 x10^6/uL Hemoglobin 9.6 g/dL Hematocrit 31.1 % Mean Corpuscular Volume 85 fL Mean Corpuscular Hemoglobin 26 pg Mean Corpuscular Hemoglobin Concent 31 g/dL Red Cell Distribution Width 16.7 % Platelet Count 76 x10^3/uL Neutrophils (%) (Auto) 60 % Lymphocytes (%) (Auto) 26 % Monocytes (%) (Auto) 13 % Eosinophils (%) (Auto) 1 % Basophils (%) (Auto) 0 % Neutrophils # (Auto) 4.7 x10^3uL Lymphocytes # (Auto) 2.1 x10^3/uL Monocytes # (Auto) 1.0 x10^3/uL Eosinophils # (Auto) 0.1 x10^3/uL Basophils # (Auto) 0.0 x10^3/uL Prothrombin Time 21.5 SEC Prothromb Time International Ratio 1.9 Sodium Level 147 mmol/L Potassium Level 3.5 mmol/L Chloride Level 105 mmol/L Carbon Dioxide Level 21 mmol/L Anion Gap 21 Blood Urea Nitrogen 24 mg/dL Creatinine 2.9 mg/dL Estimated GFR (Cockcroft-Gault) 16.4 BUN/Creatinine Ratio 8 Glucose Level 58 mg/dL Calcium Level 7.2 mg/dL Magnesium Level 1.5 mg/dL Total Bilirubin 3.8 mg/dL Aspartate Amino Transf (AST/SGOT) 240 U/L Alanine Aminotransferase (ALT/SGPT) 147 U/L Alkaline Phosphatase 95 U/L Total Protein 4.9 g/dL Albumin 2.0 g/dL Albumin/Globulin Ratio 0.7 Lactic Acid Level 10.2 mmol/L Test 04/17/18 09:11 Glucose (Fingerstick) 119 mg/dL BLOOD CULTURE Final GRAM NEGATIVE RODS, NOW IN 3 OF 3 BOTTLES, TWO SETS DRAWN. THIS SET WAS A SINGLE BOTTLE(PEDS) DRAW. CALLED TO CORONA FRANCISCO RN IN ICU AT 9:30 ON 04/17/18 DW MT SENT TO [facility] FOR FURTHER WORKUP. BLOOD CULTURE Final BOTH GRAM POSITIVE COCCI(DIPLOCOCCI SEEN IN ANAEROBIC BOTTLE ) AND GRAM NEGATIVE BOOGIE SEEN 2 SETS DRAWN , 2 OF 4 POSITIVE CALLED TAM[facility] RN IN ICU BY Sherita QIU, 04/16/18,1430 SPECIMEN SENDING TO [facility] FOR FURTHER WORK UP Imaging: RUQ US 04/16 The gallbladder is surgically absent. The liver is enlarged measuring 22 cm in craniocaudad extent. The hepatic echogenicity is increased compatible with fatty change. No hepatic mass or intrahepatic bile duct dilatation is seen. The common hepatic duct is enlarged measuring 1.5 cm. The upper common bile duct measures 1.3 cm. The distal common bile duct at the level pancreatic head is not clearly visualized. Much of the pancreas was obscured by overlying bowel. The right kidney is unremarkable. IMPRESSION: 1. Status post cholecystectomy. 2. Mild enlargement of the common hepatic duct. 3. Hepatomegaly with hepatic steatosis. CXR FINDINGS: Moderate cardiomegaly. The ET tube is identified in the trachea. The feeding tube is identified below the diaphragm in the stomach. Right-sided internal jugular line is identified. Right-sided internal jugular dialysis catheter identified with the tip projecting at the SVC/RA junction. Moderate prominent appearing bilateral interstitial lung markings likely congestive changes. IMPRESSION: 1. Lines and tubes as described above. 2. Moderate congestive changes unchanged. PE: GEN: intubated LUNGS: vent HEART: tachycardic ABD: distended, quiet NEURO/PSYCH: sedated A/P: Sepsis (BOTH GRAM POSITIVE COCCI AND GRAM NEGATIVE BOOGIE), resp failure, CLARITA, elevated LFTs CLARISA - last 'scopes in 2000 w/ adenomatous polyp Hepatic steatosis (US as above), s/p cholecystectomy and ERCP/sphincterotomy in 2014. -- Sepsis - critically ill. Resp status progressively worse yesterday, now on vent. Hypotensive despite pressors. Plans for CRRT. JEANETH GOULD Apr 17, 2018 10:06
--- NOTE | 2018-04-17 10:27 | PDOC ---
PULMONARY PROGRESS NOTES Subjective intubated yesterday afternoon with worsening septic shock, ARDS, multi-system organ failure AC mode, 100% FIO2 no urine output Vitals Vital Signs Date Time Temp Pulse Resp B/P (MAP) Pulse Ox O2 Delivery O2 Flow Rate FiO2 04/17/18 09:09 97 Ventilator 04/17/18 06:30 120 28 84/69 (74) 04/17/18 01:15 101.0 101.0 04/16/18 17:00 4.0 Lungs: Other (decrease bs) Cardiovascular: S1 Abdomen: Soft, Other (distended) Extremities: Other (1+edema) Skin: Warm, Dry, No Rashes Labs Laboratory Tests Test 04/15/18 20:30 04/16/18 01:20 04/16/18 02:10 04/16/18 06:15 White Blood Count 2.0 x10^3/uL (4.0-11.0) 10.1 x10^3/uL (4.0-11.0) Red Blood Count 4.86 x10^6/uL (3.50-5.40) 4.22 x10^6/uL (3.50-5.40) Hemoglobin 13.0 g/dL (12.0-15.5) 11.4 g/dL (12.0-15.5) Hematocrit 39.1 % (36.0-47.0) 35.4 % (36.0-47.0) Mean Corpuscular Volume 81 fL (79-100) 84 fL (79-100) Mean Corpuscular Hemoglobin 27 pg (25-35) 27 pg (25-35) Mean Corpuscular Hemoglobin Concent 33 g/dL (31-37) 32 g/dL (31-37) Red Cell Distribution Width 15.1 % (11.5-14.5) 15.8 % (11.5-14.5) Platelet Count 140 x10^3/uL (140-400) 141 x10^3/uL (140-400) Neutrophils (%) (Auto) 84 % (31-73) Lymphocytes (%) (Auto) 13 % (24-48) Monocytes (%) (Auto) 1 % (0-9) Eosinophils (%) (Auto) 1 % (0-3) Basophils (%) (Auto) 0 % (0-3) Neutrophils # (Auto) 1.7 x10^3uL (1.8-7.7) Lymphocytes # (Auto) 0.3 x10^3/uL (1.0-4.8) Monocytes # (Auto) 0.0 x10^3/uL (0.0-1.1) Eosinophils # (Auto) 0.0 x10^3/uL (0.0-0.7) Basophils # (Auto) 0.0 x10^3/uL (0.0-0.2) Segmented Neutrophils % 55 % (35-66) Band Neutrophils % 29 % (0-9) Lymphocytes % 13 % (24-48) Eosinophils % 2 % (0-5) Metamyelocytes % 1 % (0-0) Toxic Vacuolation Mod Platelet Estimate Adequate (ADEQUATE) Prothrombin Time 13.9 SEC (11.7-14.0) Prothromb Time International Ratio 1.1 (0.8-1.1) Activated Partial Thromboplast Time 27 SEC (24-38) Sodium Level 143 mmol/L (136-145) 146 mmol/L (136-145) Potassium Level 3.1 mmol/L (3.5-5.1) 3.9 mmol/L (3.5-5.1) Chloride Level 102 mmol/L (98-107) 108 mmol/L (98-107) Carbon Dioxide Level 27 mmol/L (21-32) 23 mmol/L (21-32) Anion Gap 14 (6-14) 15 (6-14) Blood Urea Nitrogen 11 mg/dL (7-20) 14 mg/dL (7-20) Creatinine 1.2 mg/dL (0.6-1.0) 1.4 mg/dL (0.6-1.0) Estimated GFR (Cockcroft-Gault) 45.5 38.1 BUN/Creatinine Ratio 9 (6-20) 10 (6-20) Glucose Level 93 mg/dL (70-99) 83 mg/dL (70-99) Lactic Acid Level 6.2 mmol/L (0.4-2.0) 6.5 mmol/L (0.4-2.0) 5.9 mmol/L (0.4-2.0) Calcium Level 9.4 mg/dL (8.5-10.1) 8.0 mg/dL (8.5-10.1) Magnesium Level 1.2 mg/dL (1.8-2.4) 1.6 mg/dL (1.8-2.4) Total Bilirubin 3.6 mg/dL (0.2-1.0) 3.5 mg/dL (0.2-1.0) Aspartate Amino Transf (AST/SGOT) 211 U/L (15-37) 136 U/L (15-37) Alanine Aminotransferase (ALT/SGPT) 155 U/L (14-59) 119 U/L (14-59) Alkaline Phosphatase 74 U/L (46-116) 53 U/L (46-116) Creatine Kinase 118 U/L (26-192) Creatine Kinase MB (Mass) < 0.5 ng/mL (0.0-3.6) Creatine Kinase MB Relative Index % (0-4) Troponin I Quantitative < 0.017 ng/mL (0.000-0.055) 0.027 ng/mL (0.000-0.055) 0.027 ng/mL (0.000-0.055) Total Protein 7.3 g/dL (6.4-8.2) 5.5 g/dL (6.4-8.2) Albumin 3.6 g/dL (3.4-5.0) 2.7 g/dL (3.4-5.0) Albumin/Globulin Ratio 1.0 (1.0-1.7) 1.0 (1.0-1.7) Lipase 72 U/L (73-393) Nasal Screen MRSA (PCR) Negative (Negative) Reticulocyte Count (auto) 1.9 % (0.5-2.5) Iron Level 9 ug/dL (50-170) Total Iron Binding Capacity 372 ug/dL (250-450) Iron Saturation 2 % (15-34) Vitamin B12 Level 616 pg/mL (247-911) Hepatitis A IgM Antibody Nonreactive (Nonreactive) Hepatitis B Surface Antigen Nonreactive (Nonreactive) Hepatitis B Core IgM Antibody Nonreactive (Nonreactive) Hepatitis C IgG Antibody Nonreactive (Nonreactive) Test 04/16/18 09:00 04/16/18 11:43 04/16/18 13:17 04/16/18 13:25 Urine Collection Type Unknown Urine Color [place] Urine Clarity Clear Urine pH 5.5 Urine Specific [place] 1.025 Urine Protein 30 mg/dL (NEG-TRACE) Urine Glucose (UA) Negative mg/dL (NEG) Urine Ketones (Stick) 15 mg/dL (NEG) Urine Blood Negative (NEG) Urine Nitrite Positive (NEG) Urine Bilirubin Large (NEG) Urine Urobilinogen Dipstick 1.0 mg/dL (0.2 mg/dL) Urine Leukocyte Esterase Small (NEG) Urine RBC Occ /HPF (0-2) Urine WBC 11-20 /HPF (0-4) Urine Squamous Epithelial Cells Many /LPF Urine Renal Epithelial Cells Few /LPF Urine Bacteria Many /HPF (0-FEW) Urine Mucus Mod /LPF Urine Opiates Screen Pos (NEG) Urine Methadone Screen Neg (NEG) Urine Barbiturates Neg (NEG) Urine Phencyclidine Screen Neg (NEG) Urine Amphetamine/Methamphetamine Neg (NEG) Urine Benzodiazepines Screen Pos (NEG) Urine Cocaine Screen Neg (NEG) Urine Cannabinoids Screen Pos (NEG) Urine Ethyl Alcohol Neg (NEG) O2 Saturation 87 % (92-99) 91 % (92-99) Arterial Blood pH 7.26 (7.35-7.45) 7.17 (7.35-7.45) Arterial Blood pCO2 at Patient Temp 51 mmHg (35-46) 45 mmHg (35-46) Arterial Blood pO2 at Patient Temp 58 mmHg (65-108) 73 mmHg (65-108) Arterial Blood HCO3 22 mmol/L (21-28) 16 mmol/L (21-28) Arterial Blood Base Excess -5 mmol/L (-3-3) -12 mmol/L (-3-3) FiO2 36 50 Sodium Level 144 mmol/L (136-145) Potassium Level 4.7 mmol/L (3.5-5.1) Chloride Level 107 mmol/L (98-107) Carbon Dioxide Level 24 mmol/L (21-32) Anion Gap 13 (6-14) Blood Urea Nitrogen 18 mg/dL (7-20) Creatinine 1.9 mg/dL (0.6-1.0) Estimated GFR (Cockcroft-Gault) 26.8 Glucose Level 68 mg/dL (70-99) Lactic Acid Level 5.1 mmol/L (0.4-2.0) Calcium Level 7.8 mg/dL (8.5-10.1) Test 04/16/18 20:00 04/17/18 01:09 04/17/18 04:00 04/17/18 07:48 O2 Saturation 90 % (92-99) 90 % (92-99) Arterial Blood pH 7.21 (7.35-7.45) 7.20 (7.35-7.45) Arterial Blood pCO2 at Patient Temp 42 mmHg (35-46) 45 mmHg (35-46) Arterial Blood pO2 at Patient Temp 69 mmHg (65-108) 67 mmHg (65-108) Arterial Blood HCO3 16 mmol/L (21-28) 17 mmol/L (21-28) Arterial Blood Base Excess -11 mmol/L (-3-3) -11 mmol/L (-3-3) FiO2 60 90 Arterial Blood pH (Temp corrected) 7.18 Arterial Blood pCO2 (Temp correct) 48 mmHg Arterial Blood pO2 (Temp corrected) 73 mmHg White Blood Count 7.9 x10^3/uL (4.0-11.0) Red Blood Count 3.64 x10^6/uL (3.50-5.40) Hemoglobin 9.6 g/dL (12.0-15.5) Hematocrit 31.1 % (36.0-47.0) Mean Corpuscular Volume 85 fL (79-100) Mean Corpuscular Hemoglobin 26 pg (25-35) Mean Corpuscular Hemoglobin Concent 31 g/dL (31-37) Red Cell Distribution Width 16.7 % (11.5-14.5) Platelet Count 76 x10^3/uL (140-400) Neutrophils (%) (Auto) 60 % (31-73) Lymphocytes (%) (Auto) 26 % (24-48) Monocytes (%) (Auto) 13 % (0-9) Eosinophils (%) (Auto) 1 % (0-3) Basophils (%) (Auto) 0 % (0-3) Neutrophils # (Auto) 4.7 x10^3uL (1.8-7.7) Lymphocytes # (Auto) 2.1 x10^3/uL (1.0-4.8) Monocytes # (Auto) 1.0 x10^3/uL (0.0-1.1) Eosinophils # (Auto) 0.1 x10^3/uL (0.0-0.7) Basophils # (Auto) 0.0 x10^3/uL (0.0-0.2) Prothrombin Time 21.5 SEC (11.7-14.0) Prothromb Time International Ratio 1.9 (0.8-1.1) Sodium Level 147 mmol/L (136-145) Potassium Level 3.5 mmol/L (3.5-5.1) Chloride Level 105 mmol/L (98-107) Carbon Dioxide Level 21 mmol/L (21-32) Anion Gap 21 (6-14) Blood Urea Nitrogen 24 mg/dL (7-20) Creatinine 2.9 mg/dL (0.6-1.0) Estimated GFR (Cockcroft-Gault) 16.4 BUN/Creatinine Ratio 8 (6-20) Glucose Level 58 mg/dL (70-99) Calcium Level 7.2 mg/dL (8.5-10.1) Magnesium Level 1.5 mg/dL (1.8-2.4) Total Bilirubin 3.8 mg/dL (0.2-1.0) Aspartate Amino Transf (AST/SGOT) 240 U/L (15-37) Alanine Aminotransferase (ALT/SGPT) 147 U/L (14-59) Alkaline Phosphatase 95 U/L (46-116) Total Protein 4.9 g/dL (6.4-8.2) Albumin 2.0 g/dL (3.4-5.0) Albumin/Globulin Ratio 0.7 (1.0-1.7) Lactic Acid Level 10.2 mmol/L (0.4-2.0) Test 04/17/18 08:00 04/17/18 09:11 O2 Saturation 93 % (92-99) Arterial Blood pH 7.17 (7.35-7.45) Arterial Blood pH (Temp corrected) 7.16 Arterial Blood pCO2 at Patient Temp 47 mmHg (35-46) Arterial Blood pCO2 (Temp correct) 47 mmHg Arterial Blood pO2 at Patient Temp 74 mmHg (65-108) Arterial Blood pO2 (Temp corrected) 76 mmHg Arterial Blood HCO3 17 mmol/L (21-28) Arterial Blood Base Excess -12 mmol/L (-3-3) FiO2 100 Glucose (Fingerstick) 119 mg/dL (70-99) Laboratory Tests Test 04/16/18 11:43 04/16/18 13:17 04/16/18 13:25 04/16/18 20:00 O2 Saturation 87 % (92-99) 91 % (92-99) 90 % (92-99) Arterial Blood pH 7.26 (7.35-7.45) 7.17 (7.35-7.45) 7.21 (7.35-7.45) Arterial Blood pCO2 at Patient Temp 51 mmHg (35-46) 45 mmHg (35-46) 42 mmHg (35-46) Arterial Blood pO2 at Patient Temp 58 mmHg (65-108) 73 mmHg (65-108) 69 mmHg (65-108) Arterial Blood HCO3 22 mmol/L (21-28) 16 mmol/L (21-28) 16 mmol/L (21-28) Arterial Blood Base Excess -5 mmol/L (-3-3) -12 mmol/L (-3-3) -11 mmol/L (-3-3) FiO2 36 50 60 Sodium Level 144 mmol/L (136-145) Potassium Level 4.7 mmol/L (3.5-5.1) Chloride Level 107 mmol/L (98-107) Carbon Dioxide Level 24 mmol/L (21-32) Anion Gap 13 (6-14) Blood Urea Nitrogen 18 mg/dL (7-20) Creatinine 1.9 mg/dL (0.6-1.0) Estimated GFR (Cockcroft-Gault) 26.8 Glucose Level 68 mg/dL (70-99) Lactic Acid Level 5.1 mmol/L (0.4-2.0) Calcium Level 7.8 mg/dL (8.5-10.1) Test 04/17/18 01:09 04/17/18 04:00 04/17/18 07:48 04/17/18 08:00 O2 Saturation 90 % (92-99) 93 % (92-99) Arterial Blood pH 7.20 (7.35-7.45) 7.17 (7.35-7.45) Arterial Blood pH (Temp corrected) 7.18 7.16 Arterial Blood pCO2 at Patient Temp 45 mmHg (35-46) 47 mmHg (35-46) Arterial Blood pCO2 (Temp correct) 48 mmHg 47 mmHg Arterial Blood pO2 at Patient Temp 67 mmHg (65-108) 74 mmHg (65-108) Arterial Blood pO2 (Temp corrected) 73 mmHg 76 mmHg Arterial Blood HCO3 17 mmol/L (21-28) 17 mmol/L (21-28) Arterial Blood Base Excess -11 mmol/L (-3-3) -12 mmol/L (-3-3) FiO2 90 100 White Blood Count 7.9 x10^3/uL (4.0-11.0) Red Blood Count 3.64 x10^6/uL (3.50-5.40) Hemoglobin 9.6 g/dL (12.0-15.5) Hematocrit 31.1 % (36.0-47.0) Mean Corpuscular Volume 85 fL (79-100) Mean Corpuscular Hemoglobin 26 pg (25-35) Mean Corpuscular Hemoglobin Concent 31 g/dL (31-37) Red Cell Distribution Width 16.7 % (11.5-14.5) Platelet Count 76 x10^3/uL (140-400) Neutrophils (%) (Auto) 60 % (31-73) Lymphocytes (%) (Auto) 26 % (24-48) Monocytes (%) (Auto) 13 % (0-9) Eosinophils (%) (Auto) 1 % (0-3) Basophils (%) (Auto) 0 % (0-3) Neutrophils # (Auto) 4.7 x10^3uL (1.8-7.7) Lymphocytes # (Auto) 2.1 x10^3/uL (1.0-4.8) Monocytes # (Auto) 1.0 x10^3/uL (0.0-1.1) Eosinophils # (Auto) 0.1 x10^3/uL (0.0-0.7) Basophils # (Auto) 0.0 x10^3/uL (0.0-0.2) Prothrombin Time 21.5 SEC (11.7-14.0) Prothromb Time International Ratio 1.9 (0.8-1.1) Sodium Level 147 mmol/L (136-145) Potassium Level 3.5 mmol/L (3.5-5.1) Chloride Level 105 mmol/L (98-107) Carbon Dioxide Level 21 mmol/L (21-32) Anion Gap 21 (6-14) Blood Urea Nitrogen 24 mg/dL (7-20) Creatinine 2.9 mg/dL (0.6-1.0) Estimated GFR (Cockcroft-Gault) 16.4 BUN/Creatinine Ratio 8 (6-20) Glucose Level 58 mg/dL (70-99) Calcium Level 7.2 mg/dL (8.5-10.1) Magnesium Level 1.5 mg/dL (1.8-2.4) Total Bilirubin 3.8 mg/dL (0.2-1.0) Aspartate Amino Transf (AST/SGOT) 240 U/L (15-37) Alanine Aminotransferase (ALT/SGPT) 147 U/L (14-59) Alkaline Phosphatase 95 U/L (46-116) Total Protein 4.9 g/dL (6.4-8.2) Albumin 2.0 g/dL (3.4-5.0) Albumin/Globulin Ratio 0.7 (1.0-1.7) Lactic Acid Level 10.2 mmol/L (0.4-2.0) Test 04/17/18 09:11 Glucose (Fingerstick) 119 mg/dL (70-99) Medications Active Scripts Medications Dose Route/Sig Max Daily Dose Days Date Category Losartan-Hctz 100-25 Mg Tab (Losartan/Hydrochlorothiazide) 1 Each Tablet 1 Tab PO DAILY 04/16/18 Reported Famotidine 20 Mg Tablet 20 Mg PO BID 04/16/18 Reported Robaxin (Methocarbamol) 500 Mg Tablet 1 Tab PO TID PRN 04/16/18 Reported Aspirin Ec (Aspirin) 325 Mg Tablet. 1 Tab PO BID 07/11/17 Reported Albuterol Sulfate Conc Neb Soln (Albuterol Sulfate) 2.5 Mg/0.5 Ml Vial.neb 1 Vial NEB PRN Q6HRS PRN 06/24/17 Reported Multivitamins (Multivitamin) 1 Each Tablet 1 Tab PO DAILY 06/24/17 Reported Carafate (Sucralfate) 1 Gm Tablet 1 Tab PO QIDACHS 06/24/17 Reported Potassium Chloride 10 Meq Tab.sr.24h 10 Meq PO DAILY 06/24/17 Reported Amlodipine Besylate 5 Mg Tablet 5 Mg PO HS 06/24/17 Reported Promethazine Hcl 25 Mg Tablet 1 Tab PO PRN Q6HRS PRN 10/15/14 Rx Percocet 5-325 Mg Tablet (Oxycodone/Acetaminophen) 1 Each Tablet 1 Tab PO TID PRN 10/13/14 Reported Alprazolam 1 Mg Tablet 1 Tab PO TID PRN 10/13/14 Reported Proair Hfa Inhaler (Albuterol Sulfate) 8.5 Gm Hfa.aer.ad 1 Puff INH PRN Q6HRS PRN 10/13/14 Reported Benadryl Allergy (Diphenhydramine Hcl) 25 Mg Tablet 50 Mg PO BID 10/13/14 Reported Lovastatin 20 Mg Tablet 20 Mg PO HS 10/13/14 Reported Bupropion Hcl 75 Mg Tablet 150 Mg PO DAILY 10/13/14 Reported Citalopram Hbr (Citalopram Hydrobromide) 40 Mg Tablet 1 Tab PO DAILY 10/13/14 Reported Montelukast Sodium Tablet (Montelukast Sodium) 10 Mg Tablet 10 Mg PO HS 10/13/14 Reported Pantoprazole Sodium 40 Mg Tablet.dr 1 Tab PO DAILY 10/13/14 Reported Mirtazapine 30 Mg Tablet 1 Tab PO QHS 10/13/14 Reported Atenolol 50 Mg Tablet 1 Tab PO BID 10/04/14 Reported Comments CXR 04/17 MILD INTERSTITIAL INFILTRATES Impression . 1. Acute hypoxic and hypercapnic respiratory failure secondary to septic shock , abdomen is the likely source.NOW INTUBATED, ON 4 PRESSORS AND MULTI-SYSTEM ORGAN FAILURE/ ARDS .2. Septic shock, requiring 4 pressors. Source is in the abdomen; however, CT abdomen and pelvis does not reveal any obvious etiology, but it was without IV contrast. 3. Suspected underlying chronic obstructive pulmonary disease. 4. Suspected underlying obstructive sleep apnea and obesity hypoventilation syndrome. 5. Metabolic encephalopathy related to infectious etiology. 6. acute tubular necrosis/acute kidney injury. despite 6 liters of fluid resuscitation. 7. Shock liver 8. Coagulopathy/ suspect early DIC 9. Abnormal CXR. 10. CLARITA 11. Gram negative bacteremia Plan . 1. Discussed with the patient, RN and the patient's daughter and son.. Prognosis extremely grim. chances of survival % 2. AC mode/ 100% FIO2/ 8 PEEP. Follow ABGs 3. Max pressors/ add hydrocortisone 4. d/w renal . Initiate CRRT 5. Infectious Disease's recommendation and continue with broad-spectrum antibiotic. 6. Follow Surgery and GI's recommendations. 7. Monitor platets. ok with sc heparin for now 8. Bronchodilators. 9. Monitor LFT 10. Monitor CXR 11.d/w daughter/ son. Prognosis explained. I gave her 5% chance.They said patient wanted everything done but they understand that if she codes ,she would not survive. They prefer not to resuscitate at that time. d/w RN/RT cct 40 min CONNOR PURCELL MD Apr 17, 2018 10:27
[2018-04-17] MEDS: HYDROCORTISONE SOD SUCC/PF 100 MG/2 ML VIAL. IV SCH ×2 (11:59→14:00)
[2018-04-17] MEDS: PANTOPRAZOLE IV PUSH 40 MG VIAL. IVP SCH (11:59)
--- NOTE | 2018-04-17 13:12 | NUR ---
BP non responsive to vasopressor's. Epinephrine started little change noted. NOTE :Q15 min VS are charted via hard copy on chart w q30 min in computer. Dr Guerra/Christine in w discussion of grave out come .Will continue to "support" her w current RX and add CRRT after proper line placement. THD cath placed and OK to use. Dialysis informed . Dr Fermin in w reinforced conversation to family on patient tolerance to dialysis but informed them that CRRT may be an option because of hypotension.
[2018-04-17] MEDS ORDERED: ACETAMINOPHEN 650 MG/20.3 ML SOLUTION. PEG ONE (16:15)
[2018-04-17] MEDS ORDERED: MORPHINE SULFATE 4 MG/ML VIAL. IV PRN (16:45)
[2018-04-17] MEDS: SODIUM BICARBONATE VIAL 150 MEQ in IV DEXTROSE 5% 1,000 ML IV SCH (17:39)
--- NOTE | 2018-04-17 20:54 | NUR ---
MTN called for imminent referral at 1916, patient did not qualify for organ donation. At 1999, patient was given morphine 2 mg and ativan 2 mg, all other medications turned off, and patient extubated and placed on 2L NC. Family at bedside. Patient at 2001, auscultated by two RNs. MTN notified of cardiac time of at 2009. Dr. Curran notified at 2016.
--- NOTE | 2018-04-18 08:09 | PDOC3 ---
Discharge Summary Visit Information Date of Admission: Apr 15, 2018 Date of Discharge: Apr 17, 2018 Admitting Diagnosis: abdominal pain Final Diagnosis Septic shock secondary to most likely abdominal pathology. Unclear given the negative results off her CT scan and ultrasound. Gram positive cocci and gram negative rods bacteremia Acute hypoxemic respiratory failure on mechanical ventilation Transaminitis secondary to sepsis Acute renal failure secondary to sepsis hypomagnesemia hypokalemia Brief Hospital Course Allergies Allergies Coded Allergies Type Severity Reaction Last Updated Verified lisinopril Allergy Intermediate Itching 07/08/17 Yes nickel Allergy Intermediate Rash 07/08/17 Yes sulfacetamide Allergy Intermediate ITCHING, BURNING 07/08/17 Yes tetracycline Allergy Intermediate rash, itching 04/16/18 Yes Vital Signs Vital Signs Date Time Temp Pulse Resp B/P (MAP) Pulse Ox O2 Delivery O2 Flow Rate FiO2 04/17/18 20:00 54 4 82 Nasal Cannula 2.0 04/17/18 19:45 108/43 (64) 04/17/18 18:30 100.0 100.0 Lab Results Laboratory Tests Test 04/16/18 09:00 04/16/18 11:43 04/16/18 13:17 04/16/18 13:25 Urine Collection Type Unknown Urine Color [place] Urine Clarity Clear Urine pH 5.5 Urine Specific [place] 1.025 Urine Protein 30 mg/dL (NEG-TRACE) Urine Glucose (UA) Negative mg/dL (NEG) Urine Ketones (Stick) 15 mg/dL (NEG) Urine Blood Negative (NEG) Urine Nitrite Positive (NEG) Urine Bilirubin Large (NEG) Urine Urobilinogen Dipstick 1.0 mg/dL (0.2 mg/dL) Urine Leukocyte Esterase Small (NEG) Urine RBC Occ /HPF (0-2) Urine WBC 11-20 /HPF (0-4) Urine Squamous Epithelial Cells Many /LPF Urine Renal Epithelial Cells Few /LPF Urine Bacteria Many /HPF (0-FEW) Urine Mucus Mod /LPF Urine Opiates Screen Pos (NEG) Urine Methadone Screen Neg (NEG) Urine Barbiturates Neg (NEG) Urine Phencyclidine Screen Neg (NEG) Urine Amphetamine/Methamphetamine Neg (NEG) Urine Benzodiazepines Screen Pos (NEG) Urine Cocaine Screen Neg (NEG) Urine Cannabinoids Screen Pos (NEG) Urine Ethyl Alcohol Neg (NEG) O2 Saturation 87 % (92-99) 91 % (92-99) Arterial Blood pH 7.26 (7.35-7.45) 7.17 (7.35-7.45) Arterial Blood pCO2 at Patient Temp 51 mmHg (35-46) 45 mmHg (35-46) Arterial Blood pO2 at Patient Temp 58 mmHg (65-108) 73 mmHg (65-108) Arterial Blood HCO3 22 mmol/L (21-28) 16 mmol/L (21-28) Arterial Blood Base Excess -5 mmol/L (-3-3) -12 mmol/L (-3-3) FiO2 36 50 Sodium Level 144 mmol/L (136-145) Potassium Level 4.7 mmol/L (3.5-5.1) Chloride Level 107 mmol/L (98-107) Carbon Dioxide Level 24 mmol/L (21-32) Anion Gap 13 (6-14) Blood Urea Nitrogen 18 mg/dL (7-20) Creatinine 1.9 mg/dL (0.6-1.0) Estimated GFR (Cockcroft-Gault) 26.8 Glucose Level 68 mg/dL (70-99) Lactic Acid Level 5.1 mmol/L (0.4-2.0) Calcium Level 7.8 mg/dL (8.5-10.1) Test 04/16/18 16:20 04/16/18 20:00 04/17/18 01:09 04/17/18 04:00 Giardia lamblia Antigen Negative (Negative) O2 Saturation 90 % (92-99) 90 % (92-99) Arterial Blood pH 7.21 (7.35-7.45) 7.20 (7.35-7.45) Arterial Blood pCO2 at Patient Temp 42 mmHg (35-46) 45 mmHg (35-46) Arterial Blood pO2 at Patient Temp 69 mmHg (65-108) 67 mmHg (65-108) Arterial Blood HCO3 16 mmol/L (21-28) 17 mmol/L (21-28) Arterial Blood Base Excess -11 mmol/L (-3-3) -11 mmol/L (-3-3) FiO2 60 90 Arterial Blood pH (Temp corrected) 7.18 Arterial Blood pCO2 (Temp correct) 48 mmHg Arterial Blood pO2 (Temp corrected) 73 mmHg White Blood Count 7.9 x10^3/uL (4.0-11.0) Red Blood Count 3.64 x10^6/uL (3.50-5.40) Hemoglobin 9.6 g/dL (12.0-15.5) Hematocrit 31.1 % (36.0-47.0) Mean Corpuscular Volume 85 fL (79-100) Mean Corpuscular Hemoglobin 26 pg (25-35) Mean Corpuscular Hemoglobin Concent 31 g/dL (31-37) Red Cell Distribution Width 16.7 % (11.5-14.5) Platelet Count 76 x10^3/uL (140-400) Neutrophils (%) (Auto) 60 % (31-73) Lymphocytes (%) (Auto) 26 % (24-48) Monocytes (%) (Auto) 13 % (0-9) Eosinophils (%) (Auto) 1 % (0-3) Basophils (%) (Auto) 0 % (0-3) Neutrophils # (Auto) 4.7 x10^3uL (1.8-7.7) Lymphocytes # (Auto) 2.1 x10^3/uL (1.0-4.8) Monocytes # (Auto) 1.0 x10^3/uL (0.0-1.1) Eosinophils # (Auto) 0.1 x10^3/uL (0.0-0.7) Basophils # (Auto) 0.0 x10^3/uL (0.0-0.2) Prothrombin Time 21.5 SEC (11.7-14.0) Prothromb Time International Ratio 1.9 (0.8-1.1) Sodium Level 147 mmol/L (136-145) Potassium Level 3.5 mmol/L (3.5-5.1) Chloride Level 105 mmol/L (98-107) Carbon Dioxide Level 21 mmol/L (21-32) Anion Gap 21 (6-14) Blood Urea Nitrogen 24 mg/dL (7-20) Creatinine 2.9 mg/dL (0.6-1.0) Estimated GFR (Cockcroft-Gault) 16.4 BUN/Creatinine Ratio 8 (6-20) Glucose Level 58 mg/dL (70-99) Calcium Level 7.2 mg/dL (8.5-10.1) Magnesium Level 1.5 mg/dL (1.8-2.4) Total Bilirubin 3.8 mg/dL (0.2-1.0) Aspartate Amino Transf (AST/SGOT) 240 U/L (15-37) Alanine Aminotransferase (ALT/SGPT) 147 U/L (14-59) Alkaline Phosphatase 95 U/L (46-116) Total Protein 4.9 g/dL (6.4-8.2) Albumin 2.0 g/dL (3.4-5.0) Albumin/Globulin Ratio 0.7 (1.0-1.7) Test 04/17/18 07:48 04/17/18 08:00 04/17/18 09:11 Lactic Acid Level 10.2 mmol/L (0.4-2.0) O2 Saturation 93 % (92-99) Arterial Blood pH 7.17 (7.35-7.45) Arterial Blood pH (Temp corrected) 7.16 Arterial Blood pCO2 at Patient Temp 47 mmHg (35-46) Arterial Blood pCO2 (Temp correct) 47 mmHg Arterial Blood pO2 at Patient Temp 74 mmHg (65-108) Arterial Blood pO2 (Temp corrected) 76 mmHg Arterial Blood HCO3 17 mmol/L (21-28) Arterial Blood Base Excess -12 mmol/L (-3-3) FiO2 100 Glucose (Fingerstick) 119 mg/dL (70-99) Laboratory Tests Test 04/17/18 08:00 04/17/18 09:11 O2 Saturation 93 % (92-99) Arterial Blood pH 7.17 (7.35-7.45) Arterial Blood pH (Temp corrected) 7.16 Arterial Blood pCO2 at Patient Temp 47 mmHg (35-46) Arterial Blood pCO2 (Temp correct) 47 mmHg Arterial Blood pO2 at Patient Temp 74 mmHg (65-108) Arterial Blood pO2 (Temp corrected) 76 mmHg Arterial Blood HCO3 17 mmol/L (21-28) Arterial Blood Base Excess -12 mmol/L (-3-3) FiO2 100 Glucose (Fingerstick) 119 mg/dL (70-99) Brief Hospital Course Ms. Rockwell is a 62 old male who presented with severe abdominal pain with no significant history. Patient was admitted to the ICU due to the acuity of her symptoms. Patient was started promptly on broad spectrum antibiotics. Patient was evaluated by surgery, no surgical abdomen evident on clinical grounds, her CT scan and ultrasound did not show evidence of active infectious process nevertheless the patient had postive blood cultures that were addressed by our ID health consultant. Pulmonary consultation was requested as well due to respiratory distress, patient was intubated on the afternoon of April 16. Despite maximal medical management patient continued to deteriorate and unfortunately succumbed to her infection. She the night of the after family members understanding the grave prognosis and minimal chances of recovery decided to stop all interventions and mechanical ventilation. She peacefully at 2001 Discharge Information Condition at Discharge: / Disposition/Orders: Scheduled Amlodipine Besylate (Amlodipine Besylate) 5 Mg Tablet, 5 MG PO HS for blood pressure, (Reported) Entered as Reported by: ANITA RIVAS on 06/24/17 1529 Last Action: Edited on 04/16/18 0940 by Radha Hendricks Aspirin (Aspirin Ec) 325 Mg Tablet.dr, 1 TAB PO BID for blood thinner, #30 Ref 0 (Reported) Entered as Reported by: MARIA DEL ROSARIO HERNANDEZ on 07/11/17 1029 Atenolol (Atenolol) 50 Mg Tablet, 1 TAB PO BID for heart/blood pressure, #30 Ref 5 (Reported) Entered as Reported by: DENNY WILSON on 10/04/14 1845 Bupropion Hcl (Bupropion Hcl) 75 Mg Tablet, 150 MG PO DAILY for anxiety/ depression, (Reported) Entered as Reported by: EMMIE AVERY on 10/13/14 0305 Citalopram Hydrobromide (Citalopram Hbr) 40 Mg Tablet, 1 TAB PO DAILY for depression/anxiety, #90 Ref 1 (Reported) Entered as Reported by: EMMIE AVERY on 10/13/14 0305 Diphenhydramine Hcl (Benadryl Allergy) 25 Mg Tablet, 50 MG PO BID for allergies, (Reported) Entered as Reported by: EMMIE AVERY on 10/13/14 0305 Famotidine (Famotidine) 20 Mg Tablet, 20 MG PO BID for stomach, (Reported) Entered as Reported by: Radha Hendricks on 04/16/18 1011 Last Action: New Order on 04/16/18 1011 by Radha Hendricks Losartan/Hydrochlorothiazide (Losartan-Hctz 100-25 Mg Tab) 1 Each Tablet, 1 TAB PO DAILY for blood pressure/water pill, #30 Ref 5 (Reported) Entered as Reported by: Radha Hendricks on 04/16/18 1011 Last Action: New Order on 04/16/18 1011 by Radha Hendricks Lovastatin (Lovastatin) 20 Mg Tablet, 20 MG PO HS, (Reported) Entered as Reported by: EMMIE AVERY on 10/13/14 030 Mirtazapine (Mirtazapine) 30 Mg Tablet, 1 TAB PO QHS for anxiety/depression, # 30 Ref 1 (Reported) Entered as Reported by: EMMIE AVERY on 10/13/14 030 Montelukast Sodium (Montelukast Sodium Tablet) 10 Mg Tablet, 10 MG PO HS for FOR ASTHMA, #30 Ref 0 (Reported) Entered as Reported by: EMMIE AVERY on 10/13/14304 Multivitamin (Multivitamins) 1 Each Tablet, 1 TAB PO DAILY for supplement, #90 Ref 3 (Reported) Entered as Reported by: ANITA RIVAS on 06/24/17 153 Pantoprazole Sodium (Pantoprazole Sodium) 40 Mg Tablet.dr, 1 TAB PO DAILY for gerd, #30 Ref 3 (Reported) Entered as Reported by: EMMIE AVERY on 10/13/14304 Potassium Chloride (Potassium Chloride) 10 Meq Tab.sr.24h, 10 MEQ PO DAILY for supplement, (Reported) Entered as Reported by: ANITA RIVAS on 06/24/17 153 Sucralfate (Carafate) 1 Gm Tablet, 1 TAB PO QIDACHS for stomach acid/reflux/gerd , #120 Ref 1 (Reported) Entered as Reported by: ANITA RIVAS on 06/24/171529 Last Action: Edited on 04/16/18 0944 by Radha Hendricks Scheduled PRN Albuterol Sulfate (Proair Hfa Inhaler) 8.5 Gm Hfa.aer.ad, 1 PUFF INH PRN Q6HRS PRN for SHORTNESS OF BREATH, Ref 0 (Reported) Entered as Reported by: EMMIE AVERY on 10/13/14304 Albuterol Sulfate (Albuterol Sulfate Conc Neb Soln) 2.5 Mg/0.5 Ml Vial.neb, 1 VIAL NEB PRN Q6HRS PRN for CONGESTION, #120 Ref 5 (Reported) Entered as Reported by: ANITA RIVAS on 06/24/17 1534 Alprazolam (Alprazolam) 1 Mg Tablet, 1 TAB PO TID PRN for ANXIETY, #90 (Reported ) Entered as Reported by: EMMIE AVERY on 10/13/14 0305 Methocarbamol (Robaxin) 500 Mg Tablet, 1 TAB PO TID PRN for MUSCLE PAIN, #90 ( Reported) Entered as Reported by: Radha Hendricks on 04/16/18 1008 Last Action: New Order on 04/16/181007 by Radha Hendricks Oxycodone/Apap 5-325 (Percocet 5-325 Mg Tablet ) 1 Each Tablet, 1 TAB PO TID PRN for PAIN, #90 (Reported) Entered as Reported by: EMMIE AVERY on 10/13/14 0305 Promethazine Hcl (Promethazine Hcl) 25 Mg Tablet, 1 TAB PO PRN Q6HRS PRN for NAUSEA/VOMITING, #20 Prescribed by: WALTER STINSON on 10/15/14 1415 Discontinued Medications Calcium Citrate/Vitamin D2 (Calcium With Vit D Tablet) 1 Each Tablet, 1 EACH PO DAILY for supplement, (Reported) Entered as Reported by: ANITA RIVAS on 06/24/17 1529 Last Action: Discontinued on 04/16/18 0944 by Radha Hendricks Cyclobenzaprine Hcl (Cyclobenzaprine Hcl) 10 Mg Tablet, 1 TAB PO TID for muscle spasms, #90 (Reported) Entered as Reported by: EMMIE AVERY on 10/13/14 0305 Last Action: Discontinued on 04/16/18 0940 by Radha Hendricks Dexamethasone (Dexamethasone Intensol) 1 Mg/1 Ml Drops, 1 MG PO for allergies ( nasal), (Reported) Entered as Reported by: ANITA RIAVS on 06/24/17 1533 Last Action: Discontinued on 04/16/18 0944 by Radha Hendricks Ferrous Sulfate (Ferrous Sulfate) 325 Mg Tablet, 1 TAB PO BID for supplement, # 60 Ref 3 (Reported) Entered as Reported by: ANITA RIVAS on 06/24/17 1531 Last Action: Discontinued on 04/16/18 0940 by Radha Hendricks Hydrochlorothiazide (Hydrochlorothiazide Tablet ) 25 Mg Tablet, 1 TAB PO DAILY for duiretic, #30 Ref 5 (Reported) Entered as Reported by: EMMIE AVERY on 10/13/14 0305 Last Action: Discontinued on 04/16/18 1011 by Radha Hendricks Losartan Potassium (Losartan Potassium) 50 Mg Tablet, 50 MG PO HS for blood pressure, (Reported) Entered as Reported by: ENOC PACK on 06/24/17 1734 Last Action: Discontinued on 04/16/18 1011 by Radha Hendricks Meloxicam (Meloxicam) 15 Mg Tablet, 1 TAB PO DAILY for anti-inflammatory/pain, # 30 Ref 2 (Reported) Entered as Reported by: ANITA RIVAS on 06/24/17 1533 Last Action: Discontinued on 04/16/18 0940 by Radha Hendricks Oxybutynin Chloride (Oxybutynin Chloride) 5 Mg Tablet, 2 TAB PO HS for urgency, #60 Ref 11 (Reported) Entered as Reported by: EMMIE AVERY on 10/13/145 Last Action: Discontinued on 04/16/18 0944 by ERAN Bertrand MD Apr 18, 2018 08:09
== END 2018-04-17 20:02 | disposition expired | DRG 871 ==
LOC: ER 19:17 → 1 WEST ICU 23:46
PROVIDERS: ADMIT Internal Medicine; ATTEND Internal Medicine
PROC: 5A09357 Assistance with Respiratory Ventilation, Less than 24 Consecutive Hours, Continuous Positive Airway Pressure (ICD-10-PCS; 2018-04-16)
PROC: 5A1945Z Respiratory Ventilation, 24-96 Consecutive Hours (ICD-10-PCS; 2018-04-16)
PROC: 0BH17EZ Insertion of Endotracheal Airway into Trachea, Via Natural or Artificial Opening (ICD-10-PCS; 2018-04-16)
PROC: 02HV33Z Insertion of Infusion Device into Superior Vena Cava, Percutaneous Approach (ICD-10-PCS; principal; 2018-04-17)
PROC: B548ZZA Ultrasonography of Superior Vena Cava, Guidance (ICD-10-PCS; 2018-04-17)
DX: A41.50 Gram-negative sepsis, unspecified (principal); J96.01 Acute respiratory failure with hypoxia; G93.41 Metabolic encephalopathy; J96.02 Acute respiratory failure with hypercapnia; K72.00 Acute and subacute hepatic failure without coma; N17.0 Acute kidney failure with tubular necrosis; R65.21 Severe sepsis with septic shock; A09 Infectious gastroenteritis and colitis, unspecified; D68.4 Acquired coagulation factor deficiency; Z68.41 Body mass index [BMI] 40.0-44.9, adult; E87.0 Hyperosmolality and hypernatremia; M19.90 Unspecified osteoarthritis, unspecified site; D69.6 Thrombocytopenia, unspecified; E66.01 Morbid (severe) obesity due to excess calories; E78.00 Pure hypercholesterolemia, unspecified; E86.0 Dehydration; E83.42 Hypomagnesemia; E78.5 Hyperlipidemia, unspecified; E87.6 Hypokalemia; F32.9 Major depressive disorder, single episode, unspecified; Z96.651 Presence of right artificial knee joint; G25.81 Restless legs syndrome; K76.0 Fatty (change of) liver, not elsewhere classified; M85.80 Other specified disorders of bone density and structure, unspecified site; F41.9 Anxiety disorder, unspecified; G89.29 Other chronic pain; I10 Essential (primary) hypertension; J45.909 Unspecified asthma, uncomplicated; K21.9 Gastro-esophageal reflux disease without esophagitis; Z79.899 Other long term (current) drug therapy; Z90.49 Acquired absence of other specified parts of digestive tract; Z79.891 Long term (current) use of opiate analgesic; Z80.0 Family history of malignant neoplasm of digestive organs; Z82.49 Family history of ischemic heart disease and other diseases of the circulatory system; Z82.5 Family history of asthma and other chronic lower respiratory diseases; Z87.891 Personal history of nicotine dependence; Z87.11 Personal history of peptic ulcer disease; Z83.3 Family history of diabetes mellitus; Z88.2 Allergy status to sulfonamides; Z98.51 Tubal ligation status
CPT/HCPCS: 36415; 36556; 36600; 71045; 74176; 76705; 76937; 80048; 80053; 80307; 81001; 82553; 82607; 82805; 82962; 83540; 83550; 83605; 83690; 83735; 84484; 85007; 85025; 85027; 85045; 85610; 85730; 86705; 86709; 86803; 87040; 87045; 87077; 87086; 87186; 87205; 87328; 87340; 87641; 93005; 94002; 94003; 94660; 96361; 96365; 96366; 96375; 96376; 99291; C1892; C9113; J0171; J0330; J0878; J1265; J1644; J1720; J1940; J1956; J2060; J2250; J2270; J2405; J2543; J3010; J3370; J3475; J3480; J3490; J7030; J7040; J7042; J7050; J7120